=== PATIENT | male | born 1945 | race Caucasian/White ===

== ENCOUNTER 2023-07-28 12:03 | Outpatient (CLI) | payer OTHER, SELFPAY ==
--- OUTSIDE RECORDS SUMMARY | 2023-07-31 16:04 | XMS_ITS | Encounter Summary ---
Author Name [employer] Organization [employer] Address [address] [place] [address] Support Name Relationship Address Phone VICTORIA WALLER [place], [place] [phone] MOLLY TAYLOR Emergency Contact [place], [place] [address] [phone] Insurance Providers: All historical and current Section Date Range: From patient's date of to the date document was created. This section includes the names of all active insurance providers for the patient. Insurance Provider Type of Coverage Plan Name Start of Policy Coverage End of Policy Coverage Group Number Member ID Insurance Provider's Telephone Number Policy Barajas's Name Patient's Relationship to Policy Barajas MEDICARE (WNR) MEDICARE (M) PART A May 20, 2009 PART A [id number] KE ORDOÑEZ PATIENT Selected Encounter This section includes the information on record at [place] for the Encounter. Date/Time Encounter Type Encounter Description Reason Provider Source Feb 03, 2023 09:30 AM OFFICE O/P EST LOW 20-29 MIN PODIATRY ICD-10-CM E11.40 Type 2 diabetes mellitus with diabetic neuropathy, EVI Rogers [place] Encounter Template Text not used by [place] Assessments - Encounter Diagnoses This section includes the primary and secondary diagnoses documented for the Encounter. Date/Time Primary/Secondary Diagnosis Diagnosis Name Provider Source Feb 03, 2023 09:47 AM PRIMARY Type 2 diabetes mellitus with diabetic neuropathy, EVI Rogers [facility] Feb 03, 2023 09:47 AM SECONDARY Idiopathic gout, left ankle and foot EVI ZIMMER [facility] Feb 03, 2023 09:47 AM SECONDARY Idiopathic gout, right ankle and foot EVI ZIMMER [facility] Feb 03, 2023 09:47 AM SECONDARY Localized edema EVI ZIMMER [facility] Feb 03, 2023 09:47 AM SECONDARY Other hammer toe(s) (acquired), left foot EVI ZIMMER [facility] Feb 03, 2023 09:47 AM SECONDARY Other hammer toe(s) (acquired), right foot EVI ZIMMER [facility] Feb 03, 2023 09:47 AM SECONDARY Peripheral vascular disease, unspecified EVI ZIMMER [facility] Feb 03, 2023 09:47 AM SECONDARY Tinea unguium GORANEVI [facility] Plan of Treatment: Future Appointments (+ 6 months) and Future Tests (+/- 45 days) The Plan of Treatment section includes future care activities for the patient from all [place] [facility] This section includes future appointments and future orders which are active, pending or scheduled. Future Appointments This section includes appointments that were scheduled to occur 6 months from the date of the Encounter, up to a maximum of 20 appointments. The data comes from all [facility]. Appointment Date/Time Appointment Type Appointme nt Facility Name May 05, 2023 08:30 AM AMBULATORY - SURGERY [facility] Jul 30, 2023 08:22 AM [facility] Jul 30, 2023 10:30 AM AMBULATORY - MEDICINE [facility] Active, Pending, and Scheduled Orders This section includes a listing of several types of active, pending, and scheduled orders, including clinic medications orders, diagnostic test orders, procedure orders and consult orders; where the start date of the order is 45 days before the date of the Encounter or 45 days after the date of theEncounter. The data comes from all [facility]. Test Date/Time Test Type Test Details Facility Name Jan 15, 2023 12:00 AM Laboratory - Chemistry Order CBC BLOOD SP [facility] Jan 15, 2023 12:00 AM Laboratory - Chemistry Order COMPREHENSIVE METABOLIC PANEL+MG PLASMA SP ONCE [facility] Jan 15, 2023 12:00 AM Laboratory - Chemistry Order LIPID PANEL,NON-FASTING PLASMA SP [facility] Jan 15, 2023 12:00 AM Laboratory - Chemistry Order URIC ACID PLASMA SP [facility] Jan 15, 2023 12:00 AM Laboratory - Chemistry Order BNP PLASMA SP ONCE [facility] Social History: Smoking Status (Most current) and Tobacco Use (All prior to encounter date) This section includes the most current, and the historical, smoking and tobacco- related health factors from the [place] facility where the Encounter took place. Current Smoking Status This section includes the most current smoking, or tobacco-related health factor, from the [place] facility where the Encounter took place. Date/Time Current Smoking Status Comment Facil ity Jan 15, 2022 11:00 AM VA-TOBACCO FORMER USER [facility] Tobacco Use History This section includes a history of the smoking, or tobacco-related health factors, that were collected on or before the date of the Encounter. The data comes from the [place] facility where the Encounter took place. Date/Time Smoking Status/Tobacco Use Comment F acility Jan 15, 2022 11:00 AM VA-TOBACCO QUIT 15 YRS OR MORE [facility] December 14, 2020 01:30 PM VA-TOBACCO FORMER USER [facility] December 14, 2020 01:30 PM VA-TOBACCO QUIT 5 TO < 15 YRS [facility] Aug 19, 2019 11:35 AM VA-TOBACCO FORMER USER [facility] Aug 19, 2019 11:35 AM VA-TOBACCO QUIT 15 YRS OR MORE [facility] Aug 27, 2018 11:54 AM VA-TOBACCO DOESNT USE WI 30 MIN WAKEUP [facility] Aug 27, 2018 11:54 AM VA-TOBACCO USE 5 TO 15 YEARS [facility] Aug 27, 2018 11:54 AM VA-TOBACCO USE ADVICE [facility] Aug 27, 2018 11:54 AM VA-TOBACCO USE [facility] ADMINISTRATOR NO [facility] Aug 27, 2018 11:54 AM VA-TOBACCO USE MED NO [facility] Aug 27, 2018 11:54 AM VA-TOBACCO USER SOME DAYS [facility] Dec 24, 2016 12:51 PM FORMER TOBACCO USER 7Y OR GREATE R [facility] Sep 12, 2015 09:12 AM FORMER TOBACCO USE >1Y <7Y [facility] Sep 05, 2014 10:04 AM LIFETIME NON-TOBACCO USER [facility] Aug 25, 2014 09:45 AM FORMER TOBACCO USE >1Y <7Y [facility] Aug 03, 2014 06:11 PM FORMER TOBACCO USER 7Y OR GREATE R [facility] Aug 03, 2014 02:50 PM LIFETIME NON-TOBACCO USER [facility] Aug 01, 2014 11:24 AM FORMER TOBACCO USE >1Y <7Y [facility] Mar 07, 2013 08:45 AM FORMER TOBACCO USE >1Y <7Y [facility] Oct 17, 2009 07:56 AM CURRENT TOBACCO USER [facility] Sep 01, 2006 09:04 AM CURRENT TOBACCO USER [facility] Sep 01, 2006 09:04 AM FORMER TOBACCO USER 7Y OR GREATE R [facility] Advance Directives: All historical and current Section Date Range: From patient's date of to the date document was created. This section includes ALL of a patient's completed or amended [place] Advance and Rescinded Directives. The entries below indicate that a directive exists for the patient, but an actual copy is not included with this document. The data comes from all [facility]. Date Advance Directives Provider Source Sep 06, 2014 CLINICAL WARNING DEMETRIUSWinstonTOYINAntonia MCKENZIE [facility] Aug 05, 2014 CLINICAL WARNING ROEL MERCER [facility] Aug 01, 2014 CLINICAL WARNING ANDREPOWERMAKAYLAALETA Montero [facility] Jul 28, 2007 ADVANCE DIRECTIVE CATY ADORNO PRIYANKA IS [facility] Encounter Notes: All associated encounter notes This section contains the clinical notes associated to the Encounter. Date/Time Encounter Note(s) Provider Source Feb 03, 2023 09:28 AM PODIATRY ATTENDING NOTE: LOCAL TITLE: PODIATRY CLINIC NOTE STANDARD TITLE: PODIATRY ATTENDING NOTE DATE OF NOTE: FEB 03, 2023@09:28 ENTRY DATE: FEB 03, 2023@09:28:55 AUTHOR: EVI ZIMMER EXP COSIGNER: URGENCY: STATUS: COMPLETED Subjective: 77 year old male presents to clinic for high risk foot care. No new issues or concerns today. Feeling well and denies any n/v/f/c/sob/cp. Last documented Hgb A1c 5.5% on 09/25/22. Problems: Mood disorder (SCT [id number]) Hypertension (SCT [id number]) Bipolar, Manic Full Rem (ICD-9-CM 296.46Idiopathic fecal incontinence (SCT 982797223) Chronic kidney disease stage 3 (SCT 4331Diabetes Mellitus Type 2 (SCT 46754585) Allergies: FACILITY ALLERGY/ADR -------- [facility] No Known Allergies [facility] NO KNOWN ALLERGIES Medications: Active Outpatient Medications (including Supplies): Active Outpatient Medications Status 1) ALLOPURINOL 100MG TAB TAKE 1/2 TABLET BY MOUTH EVERY ACTIVE DAY FOR GOUT PREVENTION [DISPENSE 100MG] 2) AMLODIPINE BESYLATE 10MG TAB TAKE ONE-HALF TABLET BY ACTIVE MOUTH AT BEDTIME FOR BLOOD PRESSURE 3) ATORVASTATIN CALCIUM 20MG TAB TAKE ONE-HALF TABLET BY ACTIVE MOUTH AT BEDTIME FOR CHOLESTEROL 4) BRIEF,PROTECTIVE SUPER ABS MED ATTENDS USE BRIEF ACTIVE DIRECTED 5) COLCHICINE 0.6MG TAB TAKE ONE TABLET BY MOUTH EVERY ACTIVE DAY TAKE FOR 9 DAYS WITH THE ALLOPURINOL 6) CYANOCOBALAMIN 1000MCG TAB TAKE ONE TABLET BY MOUTH ACTIVE EVERY DAY FOR VITAMIN B12 DEFICIENCY 7) FUROSEMIDE 20MG TAB TAKE ONE TABLET BY MOUTH EVERY ACTIVE DAY 8) LISINOPRIL 40MG TAB TAKE ONE TABLET BY MOUTH EVERY ACTIVE MORNING FOR HIGH BLOOD PRESSURE 9) MAGNESIUM OXIDE 420MG TAB TAKE ONE TABLET BY MOUTH ACTIVE EVERY DAY FOR MAGNESIUM DEFICIENCY Active Non-VA Medications Status 1) Non-VA DOXYCYCLINE CAP,ORAL 100MG BID X 10 DAYS (TO [facility] 12-18-2020) MOUTH TWICE A DAY 10 Total Medications 10 Point ROS negative unless noted in the HPI. Objective: Patient is AOx3. NAD. Pleasant and cooperative. Vascular: Pedal pulses palpable 1/4 at the DP and PT locations bilateral. Doppler signals are noted. Capillary refill time is less than 5 seconds. Trace edema to the lower extremity. Neurologic: Light touch and gross sensation intact. Decreased protective senseation as tested with SWMF b/l. Dermatologic: Skin is of normal texture and turgor. Temperature is warm to cool from proximal to distal. Toenails are intact. Nails 1 through 10 are elongated, dystrophic, subungual debris noted. The wound noted to the medial base of the fourth digit remains healed. Musculoskeletal: Arch height and contour normal. Hammertoe contractures are appreciated. Assessment: Gout DM II with peripheral neuropathy PVD Onychomycosis Hammertoe contractures Edema Plan: -Patient examined and evaluated. Discussed findings with patient. -Nails 1-10 were sharply debrided in length and thickness. -No evidence of wounds or gout attacks currently. -New consult placed for extra depth shoes and accommodative inserts. -Patient will follow up in approximately 3 months for high risk foot care. /angelita/ EVI ZIMMER DPM BAG SHAKER Signed: 02/03/2023 09:48 EVI ZIMMER [facility]
--- OUTSIDE RECORDS SUMMARY | 2023-07-31 16:04 | XMS_ITS | Encounter Summary ---
Author Name [facility] Organization [facility] Address [address] [place] [address] Support Name Relationship Address Phone VICTORIA WALLER Next of [place], [place] MOLLY TAYLOR Emergency Contact [place], [place] Unavail able [place], [place] [id number] [phone] Insurance Providers: All historical and current Section [...] PART A May 20, 2009 PART A [phone] KE ORDOÑEZ PATIENT Selected Encounter This section includes the information on record at [place] for the Encounter. Date/Time Encounter Type Encounter Description Reason Pro vider Source Feb 03, 2023 04:19 PM Outpatient Encounter PRIMARY CARE/MEDICINE I[facility] Encounter Template Text not used by [place] Plan of Treatment: Future Appointments (+ 6 months) and Future Tests (+/- 45 days) The Plan of Treatment section includes future care activities for the patient from all [place] treatmentfacilities. This section includes future appointments and future orders which are active, pending or scheduled. Future Appointments This section includes appointments that were scheduled to occur 6 months from the date of the Encounter, up to a maximum of 20 appointments. The data comes from all [place] treatment facilities. Appointment Date/Time Appointment Type Appointme nt Facility Name May 05, 2023 08:30 AM AMBULATORY - SURGERY ALFA APOLIS [facility] Jul 30, 2023 08:22 AM AMBULATORY - NONE MAGALY TORRES [facility] Jul 30, 2023 10:30 AM AMBULATORY - MEDICINE [facility] Active, Pending, and Scheduled Orders This section includes a listing of several types of active, pending, and scheduled orders, including clinic medications orders, diagnostic test orders, procedure orders and consult orders; where the start date of the order is 45 days before the date of the Encounter or 45 days after the date of theEncounter. The data comes from all [place] treatment facilities. Test Date/Time Test Type Test Details Facility Name Jan 15, 2023 12:00 AM Laboratory - Chemistry Order COMPREHENSIVE METABOLIC PANEL+MG PLASMA SP ONCE [facility] Jan 15, 2023 12:00 AM Laboratory - Chemistry Order LIPID PANEL,NON-FASTING PLASMA SP [facility] Jan 15, 2023 12:00 AM Laboratory - Chemistry Order CBC BLOOD SP [facility] Jan 15, 2023 12:00 AM Laboratory - Chemistry Order URIC ACID PLASMA [facility] Jan 15, 2023 12:00 AM Laboratory - Chemistry Order BNP PLASMA SP ONCE [facility] Social History: Smoking Status (Most current) and Tobacco Use (All prior to encounter date) This section includes the most current, and the historical, smoking and tobacco- related health factors from the [place] facility where the Encounter took place. Current Smoking Status This section includes the most current smoking, or tobacco-related health factor, from the [place] facility where the Encounter took place. Date/Time Current Smoking Status Comment Katarina verma Jan 15, 2022 11:00 AM VA-TOBACCO FORMER USER [facility] Tobacco Use History This section includes a history of the smoking, or tobacco-related health factors, that were collected on or before the date of the Encounter. The data comes from the [place] facility where the Encounter took place. Date/Time Smoking Status/Tobacco Use Comment F acility Jan 15, 2022 11:00 AM VA-TOBACCO QUIT 15 YRS OR MORE [facility] December 14, 2020 01:30 PM VA-TOBACCO FORMER USER [facility] December 14, 2020 01:30 PM VA-TOBACCO QUIT 5 TO < 15 YRS [facility] Aug 19, 2019 11:35 AM VA-TOBACCO FORMER USER [facility] Aug 19, 2019 11:35 AM VA-TOBACCO QUIT 15 YRS OR MORE [facility] Aug 27, 2018 11:54 AM VA-TOBACCO DOESNT USE WI 30 MIN WAKEUP [facility] Aug 27, 2018 11:54 AM VA-TOBACCO USE 5 TO 15 YEARS [facility] Aug 27, 2018 11:54 AM VA-TOBACCO USE ADVICE [facility] Aug 27, 2018 11:54 AM VA-TOBACCO USE 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 NO [facility] Aug 27, 2018 11:54 AM VA-TOBACCO USE MED NO [facility] Aug 27, 2018 11:54 AM VA-TOBACCO USER SOME DAYS [facility] Dec 24, 2016 12:51 PM FORMER TOBACCO USER 7Y OR GREATE R [facility] Sep 12, 2015 09:12 AM FORMER TOBACCO USE >1Y <7Y [facility] Sep 05, 2014 10:04 AM LIFETIME NON-TOBACCO USER [facility] Aug 25, 2014 09:45 AM FORMER TOBACCO USE >1Y <7Y [facility] Aug 03, 2014 06:11 PM FORMER TOBACCO USER 7Y OR GREATE R [facility] Aug 03, 2014 02:50 PM LIFETIME NON-TOBACCO USER [facility] Aug 01, 2014 11:24 AM FORMER TOBACCO USE >1Y <7Y [facility] Mar 07, 2013 08:45 AM FORMER TOBACCO USE >1Y <7Y [facility] Oct 17, 2009 07:56 AM CURRENT TOBACCO USER [facility] Sep 01, 2006 09:04 AM CURRENT TOBACCO USER [facility] Sep 01, 2006 09:04 AM FORMER TOBACCO USER 7Y OR GREATE R [facility] Advance Directives: All historical and current Section Date Range: From patient's date of to the date document was created. This section includes ALL of a patient's completed or amended [place] Advance and Rescinded Directives. The entries below indicate that a directive exists for the patient, but an actual copy is not included with this document. The data comes from all [place] facilities. Date Advance Directives Provider Source Sep 06, 2014 CLINICAL WARNING TOYIN COTA LIS [facility] Aug 05, 2014 CLINICAL WARNING ROEL MERCER IS [facility] Aug 01, 2014 CLINICAL WARNING ALETA MAZARIEGOS IS [facility] Jul 28, 2007 ADVANCE DIRECTIVE CATY ADORNO IS [facility] Encounter Notes: All associated encounter notes This section contains the clinical notes associated to the Encounter. Date/Time Encounter Note(s) Provider Source Feb 03, 2023 04:19 PM REPORT OF CONTACT: LOCAL TITLE: APPOINTMENT SCHEDULING NOTE STANDARD TITLE: REPORT OF CONTACT DATE OF NOTE: FEB 03, 2023@16:19 ENTRY DATE: FEB 03, 2023@16:20 AUTHOR: ELISA BROOKS EXP COSIGNER: URGENCY: STATUS: COMPLETED APPOINTMENT SCHEDULING NOTE Has ADDENDA Attempted to schedule Recall/Patient Center Scheduling (PtCSch) Contact attempt made to [place] 1st attempt Telephone 2nd attempt Letter Disposition order request after Feb Unable to leave voice mail d/t full vm box If calls back, schedule appt for: [id number] [facility] [employer] 4E RTC 12/2022 W/NF#[id number] FED 01/15/22 PID /[email or web address]/ ELISA BROOKS ADVANCED [facility]SA Signed: 02/03/2023 16:20 02/17/2023 ADDENDUM STATUS: COMPLETED Order dispositioned due to failed contact attempts. /vince BROOKS ADVANCED MSA Signed: 02/17/2023 12:20 ELISA BROOKS [facility]
--- OUTSIDE RECORDS SUMMARY | 2023-07-31 16:04 | XMS_ITS | Continuity of Care Document ---
Author Name [facility] Organization [facility] Care Team Providers Care Profile Shaper Operator Name Role Phone [facility] Unavailable Unavailable Problems Combined list of problems from Department of Defense and [facility] Affairs facilities. It does not include entries that were removed or entered in error. Problem Status Onset Date Problem Type Date of Resolution Comments Source Bipolar, Manic Full Rem Active Condition [facility] Chronic kidney disease stage 3 Active Condition [facility] Diabetes Mellitus Type 2 ([facility] 94436009) Active Condition May 01, 2020 Entered By: DARA PELLETIER Comment: prev dx. a1c >6.5 prev. now controlled ?(no med) [facility] Diastolic heart failure Active Condition [facility] Hypertension (SNOMED CT 75728150) Active Condition [facility] Idiopathic fecal incontinence Active Condition [facility] Mood disorder (SNOMED CT 62778972) Active Condition [facility] Alcoh Depend, in Remis Inactive Condition 12/24/2016 [facility] Alcoh Dependence, Unsp Inactive Condition 12/24/2016 [facility] Cannabis Depen,in Remis Inactive Condition 12/24/2016 [facility] CHRON PERIODONTITIS,GE N Inactive Condition 12/24/2016 [facility] Cocaine Depend, unspec Inactive Condition 12/24/2016 [facility] [place] Lesion, Pulmonary * (ICD-9-CM 793.1) Inactive Condition 12/24/2016 [facility] COPD Inactive Condition 12/24/2016 [facility] Dyslipidemia (ICD-9-CM 272.4) Inactive Condition 12/24/2016 [facility] Elevated blood pressure reading without diagnosis of hypertension (ICD-9-CM 796. Inactive Condition 12/24/2016 [facility] GINGIV/PERIODONT DIS NOS Inactive Condition 12/24/2016 [facility] Hand Injury Inactive Condition 12/24/2016 [facility] Nicotine Dependence (ICD-9-CM 305.1) Inactive Condition 12/24/2016 [facility] OVERWEIGHT Inactive Condition 12/24/2016 [facility] Routine General Medical Examination at a Health Care Facility * Inactive Condition 12/24/2016 [facility] Diagnosis: ICD-10-CM S42.402A Unsp fracture of lower end of left humerus, init for clos fx [facility] Diagnosis: ICD-10-CM E11.40 Type 2 diabetes mellitus with diabetic neuropathy, unsp Active [facility] Diagnosis: ICD-10-CM H00.022 Hordeolum internum right lower eyelid Active Diagnosis [facility] Diagnosis: ICD-10-CM 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 Medication Details Route Status Patient Instructions Prescription Expires Prescription Number Last Dispense Date Ordering Provider Order Date Source ALLOPURINOL 100MG TAB TAKE ONE TABLET BY MOUTH EVERY DAY FOR GOUT PREVENTI ON ORALLY ACTIVE 10/15/2023 [id number] ANAEULOGIO EVELYN ALLRED 2022 [facility] ALLOPURINOL 100MG TAB TAKE ONE TABLET BY MOUTH EVERY DAY FOR GOUT PREVENTI ON ORALLY DISCONT INUED 12/12/2022 [id number] ANAEULOGIO EVELYN ALLRED 2021 [facility] ALLOPURINOL TAB TAKE 100MG [facility] WITH ANT ABARCA (F), [phone] (PHONE) ACTIVE ANAEVELYN KRISHNAN ALLRED 2020 [facility] AMLODIPINE BESYLATE 10MG TAB TAKE ONE-HALF TABLET BY MOUTH AT BEDTIME FOR BLOOD PRESSURE ORALLY DISCONT INUED 11/16/2022 [id number] PRABHU EVELYNANA ALLRED 2021 [facility] AMLODIPINE BESYLATE 10MG TAB TAKE ONE-HALF TABLET BY MOUTH AT BEDTIME FOR BLOOD PRESSURE ORALLY DISCONT INUED (EDIT) 10/15/2023 [id number] 3 PRABHU EVELYN ALLRED 2022 [facility] AMLODIPINE BESYLATE 5MG TAB TAKE ONE TABLET BY MOUTH AT BEDTIME FOR BLOOD PRESSURE ORALLY ACTIVE 10/16/2023 [id number] 3 [place] EVELYNANA ALLRED 2022 [facility] ATORVASTATI N CA 10MG TAB TAKE ONE TABLET BY MOUTH AT BEDTIME FOR CHOLESTE ROL ORALLY ACTIVE 10/16/2023 [id number] [place] EVELYNANA ALLRED [address] [facility] ATORVASTATI N CA 20MG TAB TAKE ONE-HALF TABLET BY MOUTH AT BEDTIME FOR CHOLESTE ROL ORALLY DISCONT INUED 12/19/2022 [id number] 3 [place] EVELYNANA ALLRED [address] [facility] ATORVASTATI N CA 20MG TAB TAKE ONE-HALF TABLET BY MOUTH AT BEDTIME FOR CHOLESTE ROL ORALLY DISCONT INUED (EDIT) 10/15/2023 [id number] 3 [facility]22 [facility] CYANOCOBALA MIN 1000MCG TAB TAKE ONE TABLET BY MOUTH EVERY DAY FOR VITAMIN B12 DEFICIEN CY ORALLY ACTIVE 10/15/2023 [id number] 3 [facility] [address] [facility] CYANOCOBALA MIN 1000MCG TAB TAKE ONE TABLET BY MOUTH EVERY DAY FOR VITAMIN B12 DEFICIEN CY ORALLY DISCONT INUED 12/12/2022 [id number] 3 [facility] 2021 [facility] EMPAGLIFLOZ IN 25MG TAB TAKE ONE-HALF TABLET BY MOUTH EVERY MORNING FOR DIABETES AND KIDNEY. DRINK WATER THROUGHO UT DAY TO STAY HYDRATED . ORALLY ACTIVE 02/04/2024 [id number] 3 [facility] [address] [facility] EMPAGLIFLOZ IN 25MG TAB TAKE ONE-HALF TABLET BY MOUTH EVERY MORNING FOR DIABETES AND KIDNEY. DRINK WATER THROUGHO UT DAY TO STAY HYDRATED . ORALLY DISCONT INUED 05/08/2023 [id number] SANTIAGO ALVAREZ 2021 [facility] FUROSEMIDE 20MG TAB TAKE ONE TABLET BY MOUTH EVERY DAY ORALLY ACTIVE 10/15/[id number] [facility] 2022 [facility] FUROSEMIDE 20MG TAB TAKE ONE TABLET BY MOUTH EVERY DAY ORALLY DISCONT INUED 11/16/2022 [id number] 3 [place], [facility] 2021 [facility] HYDROCODONE 5MG/ACETAMI NOPHEN 325MG TAB TAKE 1 TABLET BY MOUTH EVERY 4 HOURS NEEDED FOR PAIN ORALLY ACTIVE 08/29/2023 [id number] HEIDI VIVAS 2023 [facility] LISINOPRIL 40MG TAB TAKE ONE TABLET BY MOUTH EVERY MORNING FOR HIGH BLOOD PRESSURE ORALLY ACTIVE 10/15/2023 [id number] 3 [facility] ALLRED 2022 [facility] LISINOPRIL 40MG TAB TAKE ONE TABLET BY MOUTH EVERY MORNING FOR HIGH BLOOD PRESSURE ORALLY DISCONT INUED 12/19/20[id number] [address] [facility] 2021 [facility] MAGNESIUM OXIDE 420MG TAB TAKE ONE TABLET BY MOUTH EVERY DAY FOR MAGNESIU M DEFICIEN CY ORALLY ACTIVE 10/15/2023 [id number] [address] [facility] 2022 [facility] MAGNESIUM OXIDE 420MG TAB TAKE ONE TABLET BY MOUTH EVERY DAY FOR MAGNESIU M DEFICIEN CY ORALLY DISCONT INUED 11/16/[id number] [facility] 2021 [facility] NON VA MED NOT LISTED USE CALL IN MEDICATI ONS TO [facility] TEVIN [phone] (F), (PHONE) ACTIVE [facility] 2020 [facility] INTERMEDIATE MEDICATIONS MISCELLANEO US USE PRN ANT MEDS, ANTIACID , LOPERAMI DE, DIPHENHY DRAMINE PRN ALLERGIE S, APAP, MILK OF MG, SENNA, COUGH SYRUP, A&D, PERICARE , ZULEMA M DAJACEL MARILY S ACTIVE EVELYN PELLETIER 2020 [facility] VANICREAM APPLY THIN LAYER TOPICALL Y EVERY DAY FOR DRY SKIN, IDEALLY WITHIN 3 MINUTES AFTER BATH OR SHOWER. FOR DRY SKIN, IDEALLY WITHIN 3 MINUTES AFTER BATH OR SHOWER. KIMBERLY [place] 05/14/2023 [id number] EVELYN PELLETIER 2021 [facility] Immunizations Combined list of available immunizations from the Department of Defense and Veterans Affairs facilities. Immunization Series Date Given Administered By Site Reaction Lot Number CVX Code Drug Manager Business Systems Status Comments Source PNEUMOCOCCAL POLYSACCHARID E PPV23 2023 CORDELIA PICHARDO RIGHT DELTO ID [id number] 33 complet ed [facility] COVID-19 (MODERNA), MRNA, LNP-S, PF, 50 MCG/0.5 ML (AGES 12+ YEARS) 2022 312 complet ed [facility] COVID-19 (MODERNA), MRNA, LNP-S, BIVALENT, PF, 50 MCG/0.5 ML OR 25MCG/0.25 ML DOSE 2021 229 complet ed [facility] COVID-19 (MODERNA), MRNA, LNP-S, PF, 100 MCG/0.5ML DOSE OR 50 MCG/0.25ML DOSE 4 2021 207 complet ed [facility] PNEUMOCOCCAL CONJUGATE PCV 13 2020 133 complet ed [facility] ZOSTER RECOMBINANT 2 2020 187 complet ed [facility] COVID-19 (MODERNA), MRNA, LNP-S, PF, 100 MCG OR 50 MCG DOSE 3 2020 207 complet ed [facility] COVID-19 (MODERNA), MRNA, LNP-S, PF, 100 MCG/0.5 ML DOSE 2 2020 207 complet ed [facility] COVID-19 (MODERNA), MRNA, LNP-S, PF, 100 MCG/0.5 ML DOSE 1 2020 207 complet ed [facility] ZOSTER RECOMBINANT 1 2018 187 complet ed [facility] TDAP 2017 115 complet ed [employer] TF422 Exp. 9 [facility] TD (ADULT) 2014 138 complet ed [facility] ZOSTER LIVE 2009 121 complet ed x [facility] PNEUMOCOCCAL, UNSPECIFIED FORMULATION 2008 109 complet ed [employer] [id number], 10/05/09 [facility] TD(ADULT) UNSPECIFIED FORMULATION 2000 139 complet ed [facility] TETANUS TOXOID, UNSPECIFIED FORMULATION 1996 PIPPA COLIN 112 complet ed [facility] TD(ADULT) UNSPECIFIED FORMULATION 1996 139 complet ed [facility] Results Combined list of recent chemistry, hematology and other laboratory results from Department of Defense and Veterans Affairs, ranging from 15 months to all on record, depending upon the facility. Order Name Results Value Reference Range Date Interpretation Specimen Comments Source HEMOGLOBI N A1C HEMOGLOBIN A1C/HEMOGLO BIN.TOTAL IN BLOOD 5.5 4.0 - 6.0 09/25 Specimen Type: BLOOD Comment: Values obtained from A1C measurement s can vary. For typical A1C assays, a reported value of 7.0 could actually be between 6.7 and 7.3 if measured by a reference method. A reported value of 9.0 could actually be between 8.7 and 9.3. Ref: http://www. ngsp.org/[place] Pdata.asp Ordering Provider: JOSÉ LUIS ALVAREZ Report Released Date/Time: May 07, 2022 02:26 PM Reporting Lab: [facility] [address] Performing Lab: [facility] [address] [facility] BASIC METABOLIC PANEL+MG CREATININE [MASS/VOLUM E] IN SERUM OR PLASMA 2.3 0.7 - 1.2 09/25 H Specimen Type: PLASMA No comment entered. Ordering Provider: JOSÉ LUIS ALVAREZ Report Released Date/Time: May 07, 2022 02:26 PM Reporting Lab: [facility] [address] Performing Lab: [facility] [address] [place] [facility] BASIC METABOLIC PANEL+MG UREA NITROGEN [MASS/VOLUM E] IN SERUM OR PLASMA 37 8 - 26 09/25 H Specimen Type: PLASMA No comment entered. Ordering Provider: JOSÉ LUIS ALVAREZ Report Released Date/Time: May 07, 2022 02:26 PM Reporting Lab: [facility] [address] Performing Lab: [facility] [address] [facility] BASIC METABOLIC PANEL+MG GLUCOSE [MASS/VOLUM E] IN SERUM OR PLASMA 115 70 - 100 09/25 H Specimen Type: PLASMA No comment entered. Ordering Provider: JOSÉ LUIS ALVAREZ Report Released Date/Time: May 07, 2022 02:26 PM Reporting Lab: [facility] [address] Performing Lab: [facility] [address] [place] BASIC METABOLIC PANEL+MG SODIUM [MOLES/VOLU ME] IN SERUM OR PLASMA 143 136 - 145 09/25 Specimen Type: PLASMA No comment entered. Ordering Provider: JOSÉ LUIS ALVAREZ Report Released Date/Time: May 07, 2022 02:26 PM Reporting Lab: [facility] [address] Performing Lab: [facility] [address] [facility] BASIC METABOLIC PANEL+MG POTASSIUM [MOLES/VOLU ME] IN SERUM OR PLASMA 3.8 3.5 - 5.1 09/25 Specimen Type: PLASMA No comment entered. Ordering Provider: JOSÉ LUIS ALVAREZ Report Released Date/Time: May 07, 2022 02:26 PM Reporting Lab: [facility] [address] Performing Lab: [facility] [address] [facility] BASIC METABOLIC PANEL+MG CHLORIDE [MOLES/VOLU ME] IN SERUM OR PLASMA 108 98 - 107 09/25 H Specimen Type: PLASMA No comment entered. Ordering Provider: JOSÉ LUIS ALVAREZ Report Released Date/Time: May 07, 2022 02:26 PM Reporting Lab: [facility] [address] Performing Lab: [facility] [address] [place] [facility] BASIC METABOLIC PANEL+MG CARBON DIOXIDE, TOTAL [MOLES/VOLU ME] IN SERUM OR PLASMA 22 22 - 29 09/25 Specimen Type: PLASMA No comment entered. Ordering Provider: JOSÉ LUIS ALVAREZ Report Released Date/Time: May 07, 2022 02:26 PM Reporting Lab: [facility] [address] Performing Lab: [facility] [address] [facility] BASIC METABOLIC PANEL+MG CALCIUM [MASS/VOLUM E] IN SERUM OR PLASMA 9.2 8.4 - 10.2 09/25 Specimen Type: PLASMA No comment entered. Ordering Provider: JOSÉ LUIS ALVAREZ Report Released Date/Time: May 07, 2022 02:26 PM Reporting Lab: [facility] [address] Performing Lab: [facility] [address] [place] BASIC METABOLIC PANEL+MG MAGNESIUM [MASS/VOLUM E] IN SERUM OR PLASMA 2.4 1.6 - 2.6 09/25 Specimen Type: PLASMA No comment entered. Ordering Provider: JOSÉ LUIS ALAVREZ Report Released Date/Time: May 07, 2022 02:26 PM Reporting Lab: [facility] [address] Performing Lab: [facility] [address] [facility] BASIC METABOLIC PANEL+MG ANION GAP IN SERUM OR PLASMA 13 5 - 15 09/25 Specimen Type: PLASMA No comment entered. Ordering Provider: JOSÉ LUIS ALVAREZ Report Released Date/Time: May 07, 2022 02:26 PM Reporting Lab: [facility] [address] Performing Lab: [facility] [address] [place] [facility] BASIC METABOLIC PANEL+MG GLOMERULAR FILTRATION RATE/1.73 SQ M.PREDICTED [VOLUME RATE/AREA] IN SERUM, PLASMA OR BLOOD BY CREATININE- BASED FORMULA (CKD-EPI) 28 60 09/25 L Specimen Type: PLASMA No comment entered. Ordering Provider: JOSÉ LUIS ALVAREZ Report Released Date/Time: May 07, 2022 02:26 PM Reporting Lab: [facility] [address] Performing Lab: [facility] [address] [place] [facility] HEMOGLOBI N A1C HEMOGLOBIN A1C/HEMOGLO BIN.TOTAL IN BLOOD 6.2 4.0 - 6.0 01/15 H Specimen Type: BLOOD No comment entered. Ordering Provider: GUERITA PELLETIER Report Released Date/Time: Jul 18, 2021 01:30 PM Reporting Lab: [facility] [address] Performing Lab: [facility] [address] [place] [facility] AST/SGOT ASPARTATE AMINOTRANSF ERASE [ENZYMATIC ACTIVITY/VO LUME] IN SERUM OR PLASMA 13 <34 - 34 01/15 Specimen Type: PLASMA No comment entered. Ordering Provider: GUERITA PELLETIER Report Released Date/Time: Jul 18, 2021 01:30 PM Reporting Lab: [facility] [address] Performing Lab: [facility] [address] [place] [facility] ALT/SGPT ALANINE AMINOTRANSF ERASE [ENZYMATIC ACTIVITY/VO LUME] IN SERUM OR PLASMA 12 <55 - 55 01/15 Specimen Type: PLASMA No comment entered. Ordering Provider: GUERITA PELLETIER Report Released Date/Time: Jul 18, 2021 01:30 PM Reporting Lab: [facility] [address] Performing Lab: [facility] [address] [place] [facility] URIC ACID URATE [MASS/VOLUM E] IN SERUM OR PLASMA 7.1 3.5 - 7.2 01/15 Specimen Type: PLASMA No comment entered. Ordering Provider: GUERITA PELLETIER Report Released Date/Time: Jul 18, 2021 01:30 PM Reporting Lab: [facility] [address] Performing Lab: [facility] [address] [place] [facility] CBC LEUKOCYTES [#/VOLUME] IN BLOOD BY AUTOMATED COUNT 9.25 4.0 - 11.0 01/15 Specimen Type: BLOOD No comment entered. Ordering Provider: GUERITA PELLETIER Report Released Date/Time: Jul 18, 2021 01:30 PM Reporting Lab: [facility] [address] Performing Lab: [facility] [address] [place] CBC ERYTHROCYTE S [#/VOLUME] IN BLOOD BY AUTOMATED COUNT 5.07 4.6 - 6.2 01/15 Specimen Type: BLOOD No comment entered. Ordering Provider: GUERITA PELLETIER Report Released Date/Time: Jul 18, 2021 01:30 PM Reporting Lab: [facility] [address] Performing Lab: [facility] [address] [place] CBC HEMOGLOBIN [MASS/VOLUM E] IN BLOOD 15.9 13.5 - 17.9 01/15 Specimen Type: BLOOD No comment entered. Ordering Provider: GUERITA PELLETIER Report Released Date/Time: Jul 18, 2021 01:30 PM Reporting Lab: [facility] [address] Performing Lab: [facility] [address] [place] [facility] CBC HEMATOCRIT [VOLUME FRACTION] OF BLOOD BY AUTOMATED COUNT 45.6 41 - 54 01/15 Specimen Type: BLOOD No comment entered. Ordering Provider: GUERITA PELLETIER Report Released Date/Time: Jul 18, 2021 01:30 PM Reporting Lab: [facility] [address] Performing Lab: [facility] [address] [place] [facility] CBC MCV [ENTITIC VOLUME] BY AUTOMATED COUNT 89.9 80 - 100 01/15 Specimen Type: BLOOD No comment entered. Ordering Provider: GUERITA PELLETIER Report Released Date/Time: Jul 18, 2021 01:30 PM Reporting Lab: [facility] [address] Performing Lab: [facility] [address] [place] [facility] CBC MCH [ENTITIC MASS] BY AUTOMATED COUNT 31.4 27 - 33 01/15 Specimen Type: BLOOD No comment entered. Ordering Provider: GUERITA PELLETIER Report Released Date/Time: Jul 18, 2021 01:30 PM Reporting Lab: [facility] [address] Performing Lab: [address] [facility] CBC MCHC [MASS/VOLUM E] BY AUTOMATED COUNT 34.9 32.0 - 37.5 01/15 Specimen Type: BLOOD No comment entered. Ordering Provider: GUERITA PELLETIER Report Released Date/Time: Jul 18, 2021 01:30 PM Reporting Lab: [facility] [address] Performing Lab: [facility] [address] [facility] CBC PLATELETS [#/VOLUME] IN BLOOD BY AUTOMATED COUNT 280 150 - 400 01/15 Specimen Type: BLOOD No comment entered. Ordering Provider: GUERITA PELLETIER Report Released Date/Time: Jul 18, 2021 01:30 PM Reporting Lab: [facility] [address] Performing Lab: [facility] [address] [facility] CBC PLATELET MEAN VOLUME [ENTITIC VOLUME] IN BLOOD BY AUTOMATED COUNT 10.1 7.4 - 10.4 01/15 Specimen Type: BLOOD No comment entered. Ordering Provider: GUERITA PELLETIER Report Released Date/Time: Jul 18, 2021 01:30 PM Reporting Lab: [facility] [address] Performing Lab: [facility] [address] [facility] CBC ERYTHROCYTE DISTRIBUTIO N WIDTH [RATIO] BY AUTOMATED COUNT 13.4 11.5 - 14.5 01/15 Specimen Type: BLOOD No comment entered. Ordering Provider: GUERITA PELLETIER Report Released Date/Time: Jul 18, 2021 01:30 PM Reporting Lab: [facility] [address] Performing Lab: [facility] [address] [facility] BNP NATRIURETIC PEPTIDE B [MASS/VOLUM E] IN SERUM OR PLASMA 20 <99 - 99 01/15 Specimen Type: PLASMA No comment entered. Ordering Provider: GUERITA PELLETIER Report Released Date/Time: Jul 18, 2021 01:30 PM Reporting Lab: [facility] [address] Performing Lab: [facility] [address] [place] [facility] BASIC METABOLIC PANEL+MG CREATININE [MASS/VOLUM E] IN SERUM OR PLASMA 2.3 0.7 - 1.2 01/15 H Specimen Type: PLASMA No comment entered. Ordering Provider: GUERITA PELLETIER Report Released Date/Time: Jul 18, 2021 01:30 PM Reporting Lab: [facility] [address] Performing Lab: [facility] [address] [facility] BASIC METABOLIC PANEL+MG UREA NITROGEN [MASS/VOLUM E] IN SERUM OR PLASMA 42 8 - 26 01/15 H Specimen Type: PLASMA No comment entered. Ordering Provider: GUERITA PELLETIER Report Released Date/Time: Jul 18, 2021 01:30 PM Reporting Lab: [facility] [address] Performing Lab: [facility] [address] [facility] BASIC METABOLIC PANEL+MG GLUCOSE [MASS/VOLUM E] IN SERUM OR PLASMA 103 74 - 100 01/15 H Specimen Type: PLASMA No comment entered. Ordering Provider: GUERITA PELLETIER Report Released Date/Time: Jul 18, 2021 01:30 PM Reporting Lab: [facility] [address] Performing Lab: [facility] [address] [facility] BASIC METABOLIC PANEL+MG SODIUM [MOLES/VOLU ME] IN SERUM OR PLASMA 137 136 - 145 01/15 Specimen Type: PLASMA No comment entered. Ordering Provider: GUERITA PELLETIER Report Released Date/Time: Jul 18, 2021 01:30 PM Reporting Lab: [facility] [address] Performing Lab: [facility] [address] [facility] BASIC METABOLIC PANEL+MG POTASSIUM [MOLES/VOLU ME] IN SERUM OR PLASMA 4.2 3.5 - 5.1 01/15 Specimen Type: PLASMA No comment entered. Ordering Provider: GUERITA PELLETIER Report Released Date/Time: Jul 18, 2021 01:30 PM Reporting Lab: [facility] [address] Performing Lab: [facility] [address] [facility] BASIC METABOLIC PANEL+MG CHLORIDE [MOLES/VOLU ME] IN SERUM OR PLASMA 106 98 - 107 01/15 Specimen Type: PLASMA No comment entered. Ordering Provider: GUERITA PELLETIER Report Released Date/Time: Jul 18, 2021 01:30 PM Reporting Lab: [facility] [address] Performing Lab: [facility] [address] [facility] BASIC METABOLIC PANEL+MG CARBON DIOXIDE, TOTAL [MOLES/VOLU ME] IN SERUM OR PLASMA - 01/15 Specimen Type: PLASMA No comment entered. Ordering Provider: GUERITA PELLETIER Report Released Date/Time: Jul 18, 2021 01:30 PM Reporting Lab: [facility] [address] Performing Lab: [facility] [address] [facility] BASIC METABOLIC PANEL+MG CALCIUM [MASS/VOLUM E] IN SERUM OR PLASMA 8.9 8.4 - 10.2 01/15 Specimen Type: PLASMA No comment entered. Ordering Provider: GUERITA PELLETIER Report Released Date/Time: Jul 18, 2021 01:30 PM Reporting Lab: [facility] [address] Performing Lab: [facility] [address] [place] [facility] BASIC METABOLIC PANEL+MG MAGNESIUM [MASS/VOLUM E] IN SERUM OR PLASMA 2.2 1.6 - 2.6 01/15 Specimen Type: PLASMA No comment entered. Ordering Provider: GUERITA PELLETIER Report Released Date/Time: Jul 18, 2021 01:30 PM Reporting Lab: [facility] [id number] Performing Lab: [facility] [address] [place] [facility] BASIC METABOLIC PANEL+MG ANION GAP IN SERUM OR PLASMA 9 5 - 15 01/15 Specimen Type: PLASMA No comment entered. Ordering Provider: GUERITA PELLETIER Report Released Date/Time: Jul 18, 2021 01:30 PM Reporting Lab: [facility] [phone] Performing Lab: [facility] [phone] [facility] BASIC METABOLIC PANEL+MG CREAT EGFR(CKD-EP I) 29 60 01/15 L Specimen Type: PLASMA No comment entered. Ordering Provider: GUERITA PELLETIER Report Released Date/Time: Jul 18, 2021 01:30 PM Reporting Lab: [facility] [id number] Performing Lab: [facility] [address] [facility] Vital Signs Combined list of inpatient and outpatient Vital Signs from [employer] of Defense and [employer] Affairs, ranging from 12 months to all on record, depending upon the facility. Vital Sign Value Date Comments Source SYSTOLIC BLOOD PRESSURE 127 07/30/2023 10:27:45 [facility] CENTER DIASTOLIC BLOOD PRESSURE 85 07/30/2023 10:27:45 [facility] PULSE OXIMETRY 94% 07/30/2023 10:27:45 [facility] 162.8 07/30/2023 10:27:45 [facility] BMI 26kg/m2 07/30/2023 10:27:45 [facility] PAIN 5 07/30/2023 10:27:45 [facility] HEIGHT 67 07/30/2023 10:27:45 [facility] TEMPERATURE 98.6 07/30/2023 10:27:45 [facility] PULSE 115 07/30/2023 10:27:45 [facility] RESPIRATION 18 07/30/2023 10:27:45 [facility] Encounters Combined list of: 1) Encounters from Department of Veterans Affairs facilities going back up to thelast 18 months. 2) Encounters from the Department of Defense facilities going back up to 280 months. Location Location Details Encounter Type Encounter Number Reason For Visit Attending Provider ADM Date DC Date Status Disposition Source [facility] OFFICE O/P EST MOD 30-39 MIN [id number] Diagnos is: ICD-10- CM E11.40 Type 2 diabete s mellitu s with diabeti c neuropa thy, unsp
STACIE ZIMMER 02/25 [place] [facility] [place] [facility] Out[place] Encounter [id number] 04/29 [place] [facility] [facility] [place] [facility] [place] Encounter [id number] 04/30 [place] [facility] [facility] [place] [facility] HC PRO PHONE CALL 21-30 MIN [id number] Diagnos is: ICD-10- CM E08.22 Diabete s due to undrl cond w diabeti c chronic kidney disease
DOUG ALVAREZ 05/07 [place] [facility] [place] [facility] OFF[place] O/P EST MOD 30-39 MIN [id number] Diagnos is: ICD-10- CM E11.40 Type 2 diabete s mellitu s with diabeti c neuropa thy, unsp
STACIE ZIMMER 06/03 [place] [facility] [place] [facility] Out[place] Encounter [id number] 06/13 [place] [facility] [facility] [place] [facility] [place] Encounter [id number] 06/18 [place] [facility] [facility] [place] [facility] Out[place] Encounter [id number] 06/18 [place] [facility] [place] [facility] Out[place] Encounter [id number] Diagnos is: ICD-10- CM U07.1 COVID-1 9
Cyndy PELLETIER 06/18 [place] [facility] [place] [facility] OFF[place] O/P EST LOW 20-29 MIN [id number] Diagnos is: ICD-10- CM E11.40 Type 2 diabete s mellitu s with diabeti c neuropa thy, unsp
STACIE ZIMMER 09/25 [place] [facility] [place] [facility] QNHP OL DIG ASSMT&MGMT 11-20 [id number] Diagnos is: ICD-10- CM E08.22 Diabete s due to undrl cond w diabeti c chronic kidney disease
DOUG ALVAREZ 09/25 [place] [facility] [place] [facility] Out[place] Encounter [id number] ZHAO FRENCH Albert 10/14 [place] [facility] [place] [facility] OFF[place] O/P EST SF 10-19 MIN [id number] Diagnos is: ICD-10- CM H00.022 Hordeol um internu m right lower eyelid< br/> MAREN BAKER SA 10/14 [place] [facility] [place] [facility] Out[place] Encounter [id number] 10/21 [place] [facility] [place] [facility] OFF[place] O/P EST LOW 20-29 MIN [id number] Diagnos is: ICD-10- CM E11.40 Type 2 diabete s mellitu s with diabeti c neuropa thy, unsp
[facility]IMMER 02[facility]03 [facility] [place] [facility] Out[place] Encounter [id number] STACIE ZIMMER 02/03 [place] [facility] [place] [facility] Out[place] Encounter [id number] 02/03 [place] [facility] [place] [facility] Out[place] Encounter [id number] 05/04 [place] [facility] [place] [facility] Out[place] Encounter [id number] 07/28 [place] [facility] [place] [facility] Out[place] Encounter [id number] Harley SOUTH 07/30 [place] [facility] [place] [facility] OFF[place] O/P EST LOW 20 MIN [id number] Diagnos is: ICD-10- CM S42.402 A Unsp fractur e of lower end of left humerus , init for clos fx
MITCHELL VIVAS E 07/30 [facility] Social History Combined list of available smoking, tobacco, and other social history from Department of Defense and Veterans Affairs facilities. Social History Type Response Date Comment Sourc e Tobacco smoking status NHIS VA-TOBACCO FORMER USER 07/30/2023 [facility] History of tobacco use ME-TOBACCO QUIT 5 TO < 15 YRS 07/30/2023 [facility] History of tobacco use ME-TOBACCO QUIT 1 5 YRS OR MORE 01/15/2022 [facility] History of tobacco use ME-TOBACCO QUIT 5 TO < 15 YRS 12/14/2020 [facility] History of tobacco use ME-TOBACCO QUIT 1 5 YRS OR MORE 08/19/2019 [facility] History of tobacco use ME-TOBACCO USER S OME DAYS 08/27/2018 [facility] History of tobacco use FORMER TOBACCO US ER 7Y OR GREATER 12/24/2016 [facility] History of tobacco use FORMER TOBACCO US E >1Y <7Y 09/12/2015 [facility] History of tobacco use 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 09/05/2014 [facility] History of tobacco use FORMER TOBACCO US E >1Y <7Y 08/25/2014 [facility] History of tobacco use FORMER TOBACCO US ER 7Y OR GREATER 08/03/2014 [facility] History of tobacco use 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 Additional future care activities may be listed in the Assessment and Plan section. Date/Time Care Activity Care Activity Detail Facili ty 07/30/2023 Consult Order ORTHOPEDICS OUTP T-FRACTURE Cons Programming Engineer's Choice [facility] Advance Directives List of completed, amended, or rescinded Advance Directives on record at Department of Veterans Affairs facilities. An actual copy of the Directive is not included. Date Advance Directive Provider Source 09/06/2014 CLINICAL WARNING TOYIN COTA L[facility] 08/05/2014 CLINICAL WARNING ROEL MERCER [facility] 08/01/2014 CLINICAL WARNING ALETA MAZARIEGOS IS [facility] 07/28/2007 ADVANCE DIRECTIVE CATY ADORNO [facility]
--- OUTSIDE RECORDS SUMMARY | 2023-07-31 16:04 | XMS_ITS | Encounter Summary ---
Author Name [facility] Organization [facility] Address [address] [place] [address] Support Name Relationship Address Phone VICTORIA WALLER Next of [place], [place] MOLLY TAYLOR Emergency Contact [place], [place] Unavail able AUGUSTIN [place] [address] [phone] Insurance Providers: All historical and current Section [...] PART A May 20, 2009 PART A [id number] [phone] KE ORDOÑEZ PATIENT Selected Encounter This section includes the information on record at CT for the Encounter. Date/Time Encounter Type Encounter Description Reason Provider Source Feb 03, 2023 10:00 AM Outpatient Encounter PODIATRY EVI ZIMMER Encounter Template Text not used by CT Plan of Treatment: Future Appointments (+ 6 months) and Future Tests (+/- 45 days) The Plan of Treatment section includes future care activities for the patient from all CT treatmentfacilities. This section includes future appointments and future orders which are active, pending or scheduled. Future Appointments This section includes appointments that were scheduled to occur 6 months from the date of the Encounter, up to a maximum of 20 appointments. The data comes from all CT treatment facilities. Appointment Date/Time Appointment Type Appointme nt Facility Name May 05, 2023 08:30 AM AMBULATORY - SURGERY [facility] Jul 30, 2023 08:22 AM [facility] Jul 30, 2023 10:30 AM [facility] Active, Pending, and Scheduled Orders This section includes a listing of several types of active, pending, and scheduled orders, including clinic medications orders, diagnostic test orders, procedure orders and consult orders; where the start date of the order is 45 days before the date of the Encounter or 45 days after the date of theEncounter. The data comes from all [facility] facilities. Test Date/Time Test Type Test Details Facility Name Jan 15, 2023 12:00 AM Laboratory - Chemistry Order COMPREHENSIVE METABOLIC PANEL+MG PLASMA SP ONCE [facility] Jan 15, 2023 12:00 AM Laboratory - Chemistry Order CBC BLOOD SP [facility] Jan 15, 2023 12:00 AM Laboratory - Chemistry Order BNP PLASMA SP ONCE [facility] Jan 15, 2023 12:00 AM Laboratory - Chemistry Order URIC ACID PLASMA [facility] Jan 15, 2023 12:00 AM Laboratory - Chemistry Order LIPID PANEL,NON-FASTING PLASMA SP [facility] Social History: Smoking Status (Most current) and Tobacco Use (All prior to encounter date) This section includes the most current, and the historical, smoking and tobacco- related health factors from the CT facility where the Encounter took place. Current Smoking Status This section includes the most current smoking, or tobacco-related health factor, from the CT facility where the Encounter took place. Date/Time Current Smoking Status Comment Katarina verma Jan 15, 2022 11:00 AM VA-TOBACCO FORMER USER [facility] Tobacco Use History This section includes a history of the smoking, or tobacco-related health factors, that were collected on or before the date of the Encounter. The data comes from the CT facility where the Encounter took place. Date/Time Smoking Status/Tobacco Use Comment F acility Jan 15, 2022 11:00 AM VA-TOBACCO QUIT 15 YRS OR MORE [facility] December 14, 2020 01:30 PM VA-TOBACCO FORMER USER [facility] December 14, 2020 01:30 PM VA-TOBACCO QUIT 5 TO < 15 YRS [facility] Aug 19, 2019 11:35 AM VA-TOBACCO FORMER USER [facility] Aug 19, 2019 11:35 AM VA-TOBACCO QUIT 15 YRS OR MORE [facility] Aug 27, 2018 11:54 AM VA-TOBACCO DOESNT USE WI 30 MIN WAKEUP [facility] Aug 27, 2018 11:54 AM VA-TOBACCO USE 5 TO 15 YEARS [facility] Aug 27, 2018 11:54 AM VA-TOBACCO USE ADVICE [facility] Aug 27, 2018 11:54 AM 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 [facility] Aug 27, 2018 11:54 AM VA-TOBACCO USE MED NO [facility] Aug 27, 2018 11:54 AM VA-TOBACCO USER SOME DAYS [facility] Dec 24, 2016 12:51 PM FORMER TOBACCO USER 7Y OR GREATE R [facility] Sep 12, 2015 09:12 AM FORMER TOBACCO USE >1Y <7Y [facility] Sep 05, 2014 10:04 AM LIFETIME NON-TOBACCO USER [facility] Aug 25, 2014 09:45 AM FORMER TOBACCO USE >1Y <7Y [facility] Aug 03, 2014 06:11 PM FORMER TOBACCO USER 7Y OR GREATE R [facility] Aug 03, 2014 02:50 PM LIFETIME NON-TOBACCO USER [facility] Aug 01, 2014 11:24 AM FORMER TOBACCO USE >1Y <7Y [facility] Mar 07, 2013 08:45 AM FORMER TOBACCO USE >1Y <7Y [facility] Oct 17, 2009 07:56 AM CURRENT TOBACCO USER [facility] Sep 01, 2006 09:04 AM CURRENT TOBACCO USER [facility] Sep 01, 2006 09:04 AM FORMER TOBACCO USER 7Y OR GREATE R [facility] Advance Directives: All historical and current Section Date Range: From patient's date of to the date document was created. This section includes ALL of a patient's completed or amended CT Advance and Rescinded Directives. The entries below indicate that a directive exists for the patient, but an actual copy is not included with this document. The data comes from all CT facilities. Date Advance Directives Provider Source Sep 06, 2014 CLINICAL WARNING TOYIN COTA LIS [facility] Aug 05, 2014 CLINICAL WARNING ROEL MERCER IS [facility] Aug 01, 2014 CLINICAL WARNING ALETA MAZARIEGOS IS [facility] Jul 28, 2007 ADVANCE DIRECTIVE CATY ADORNO IS [facility] Encounter Notes: All associated encounter notes This section contains the clinical notes associated to the Encounter. Date/Time Encounter Note(s) Provider Source Feb 03, 2023 09:25 AM SUICIDE PREVENTION RISK ASSESSMENT SCREENING NOTE: LOCAL TITLE: [place] SCREENING NOTE STANDARD TITLE: SUICIDE PREVENTION RISK ASSESSMENT SCREENING NOT DATE OF NOTE: FEB 03, 2023@09:25 ENTRY DATE: FEB 03, 2023@09:26:06 AUTHOR: CYN BOSWELL EXP COSIGNER: URGENCY: STATUS: COMPLETED C-SSRS Screening [place] Suicide Severity Rating Scale (C-SSRS) screener 1. Over the past month, have you wished you were or wished you could go to sleep and not wake up? No 2. Over the past month, have you had any actual thoughts of killing yourself? No 3. Over the past month, have you been thinking about how you might do this? Response not required due to responses to other questions. 4. Over the past month, have you had these thoughts and had some intention of acting on them? Response not required due to responses to other questions. 5. Over the past month, have you started to work out or worked out the details of how to kill yourself? Response not required due to responses to other questions. 6. If yes, at any time in the past month did you intend to carry out this plan? Response not required due to responses to other questions. 7. In your lifetime, have you ever done anything, started to do anything, or prepared to do anything to end your life (for example, collected pills, obtained a gun, gave away valuables, went to the roof but didn't jump)? No 8. If YES, was this within the past 3 months? Response not required due to responses to other questions. /angelita/ CYN BOSWELL RN, WTA-C, CF REGISTERED NURSE Signed: 02/03/2023 09:28 CYN BOSWELL [facility]
--- OUTSIDE RECORDS SUMMARY | 2023-07-31 16:05 | XMS_ITS | Encounter Summary ---
Author Name [facility] of Vetera Affairs Organization [facility] of [facility] Address [address] [place] [address] Support Name Relationship Address Phone VICTORIA WALLER Next [place], [place] [phone] MOLLY TAYLOR Emergency Contact [place], [place] Unavail able AUGUSTIN [place] [address] Insurance Providers: All historical and current Section [...] PART A May 20, 2009 PART A [id number] KE ORDOÑEZ PATIENT Selected Encounter This section includes the information on record at [facility] for the Encounter. Date/Time Encounter Type Encounter Description Reason Provider Source Oct 14, 2022 02:13 PM OFFICE O/P EST SF 10-19 MIN GENERAL INTERNAL MEDICINE ICD-10-CM H00.022 Hordeolum internum right lower eyelid DELANEY BAKER [facility] Encounter Template Text not used by [facility] Assessments - Encounter Diagnoses This section includes the primary and secondary diagnoses documented for the Encounter. Date/Time Primary/Secondary Diagnosis Diagnosis Name Provider Source Oct 14, 2022 02:52 PM PRIMARY Hordeolum internum right lower eyelid DELANEY BAKER [facility] Plan of Treatment: Future Appointments (+ 6 months) and Future Tests (+/- 45 days) The Plan of Treatment section includes future care activities for the patient from all [facility] treatmentfacilities. This section includes future appointments and future orders which are active, pending or scheduled. Future Appointments This section includes appointments that were scheduled to occur 6 months from the date of the Encounter, up to a maximum of 20 appointments. The data comes from all [facility] treatment facilities. Appointment Date/Time Appointment Type Appointme nt Facility Name Feb 03, 2023 09:30 AM AMBULATORY - SURGERY [facility] Lab Results: +/- 30 days of the encounter This section includes the Chemistry and Hematology Lab Results on record with [facility] for the patient. Radiology Reports and Pathology Reports are provided separately, in subsequent sections. Lab Results This section contains the Chemistry/Hematology Results that were resulted 30 days before or 30 daysafter the date of the Encounter. Date/Time Source Result Type Result - Unit Interpretation Reference Range Comment Sep 25, 2022 12:33 PM [facility] HEMOGLOBIN A1C Specimen Type: BLOOD Comment: Values obtained from A1C measurements can vary. For typical A1C assays, a reported value of 7.0 could actually be between 6.7 and 7.3 if measured by a reference method. A reported value of 9.0 could actually be between 8.7 and 9.3. Ref: http://www.ngs p.org/CAPdata. asp Ordering Provider: JOSÉ LUIS ALVAREZ Report Released Date/Time: May 07, 2022 02:26 PM Reporting Lab: [facility] [id number] Performing Lab: [facility] [id number] HEMOGLOBIN A1C 5.5 4.0-6.0 Sep 25, 2022 12:33 PM [facility] BASIC METABOLIC PANEL+MG Specimen Type: PLASMA No comment entered. Ordering Provider: JOSÉ LUIS ALVAREZ Report Released Date/Time: May 07, 2022 02:26 PM Reporting Lab: [facility] [id number] Performing Lab: [facility] [id number] CREATININE 2.3 H 0.7-1.2 UREA NITROGEN 37 H 8-26 GLUCOSE 115 H 70-100 SODIUM 143 136-145 POTASSIUM 3.8 3.5-5.1 CHLORIDE 108 H 98-107 CO2 22 22-29 CALCIUM 9.2 8.4-10.2 MAGNESIUM 2.4 1.6-2.6 ANION GAP 13 5-15 CREAT EGFR(CKD-EPI ) 28 L >60 Social History: Smoking Status (Most current) and Tobacco Use (All prior to encounter date) This section includes the most current, and the historical, smoking and tobacco- related health factors from the [facility] facility where the Encounter took place. Current Smoking Status This section includes the most current smoking, or tobacco-related health factor, from the [facility] facility where the Encounter took place. Date/Time Current Smoking Status Comment Facil ity Jan 15, 2022 11:00 AM VA-TOBACCO FORMER USER [facility] Tobacco Use History This section includes a history of the smoking, or tobacco-related health factors, that were collected on or before the date of the Encounter. The data comes from the [facility] facility where the Encounter took place. Date/Time Smoking Status/Tobacco Use Comment F acility Jan 15, 2022 11:00 AM VA-TOBACCO QUIT 15 YRS OR MORE [facility] December 14, 2020 01:30 PM VA-TOBACCO FORMER USER [facility] December 14, 2020 01:30 PM VA-TOBACCO QUIT 5 TO < 15 YRS [facility] Aug 19, 2019 11:35 AM VA-TOBACCO FORMER USER [facility] Aug 19, 2019 11:35 AM VA-TOBACCO QUIT 15 YRS OR MORE [facility] Aug 27, 2018 11:54 AM VA-TOBACCO DOESNT USE WI 30 MIN WAKEUP [facility] Aug 27, 2018 11:54 AM VA-TOBACCO USE 5 TO 15 YEARS [facility] Aug 27, 2018 11:54 AM VA-TOBACCO USE ADVICE [facility] Aug 27, 2018 11:54 AM VA-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 [facility] Aug 27, 2018 11:54 AM VA-TOBACCO USE MED NO [facility] Aug 27, 2018 11:54 AM VA-TOBACCO USER SOME DAYS [facility] Dec 24, 2016 12:51 PM FORMER TOBACCO USER 7Y OR GREATE R [facility] Sep 12, 2015 09:12 AM FORMER TOBACCO USE >1Y <7Y [facility] Sep 05, 2014 10:04 AM LIFETIME NON-TOBACCO USER [facility] Aug 25, 2014 09:45 AM FORMER TOBACCO USE >1Y <7Y [facility] Aug 03, 2014 06:11 PM FORMER TOBACCO USER 7Y OR GREATE R [facility] Aug 03, 2014 02:50 PM LIFETIME NON-TOBACCO USER [facility] Aug 01, 2014 11:24 AM FORMER TOBACCO USE >1Y <7Y [facility] Mar 07, 2013 08:45 AM FORMER TOBACCO USE >1Y <7Y [facility] Oct 17, 2009 07:56 AM CURRENT TOBACCO USER [facility] Sep 01, 2006 09:04 AM CURRENT TOBACCO USER [facility] Sep 01, 2006 09:04 AM FORMER TOBACCO USER 7Y OR GREATE R [facility] Advance Directives: All historical and current Section Date Range: From patient's date of to the date document was created. This section includes ALL of a patient's completed or amended [facility] Advance and Rescinded Directives. The entries below indicate that a directive exists for the patient, but an actual copy is not included with this document. The data comes from all [facility]. Date Advance Directives Provider Source Sep 06, 2014 CLINICAL WARNING DEMETRIUSWinstonTOYINAntonia MCKENZIE [facility] Aug 05, 2014 CLINICAL WARNING ROEL MERCER [facility] Aug 01, 2014 CLINICAL WARNING MADISONMAKAYLAALETA Montero IS [facility] Jul 28, 2007 ADVANCE DIRECTIVE CATY ADORNO PRIYANKA IS [facility] Encounter Notes: All associated encounter notes This section contains the clinical notes associated to the Encounter. Date/Time Encounter Note(s) Provider Source Oct 14, 2022 02:13 PM TELEPHONE ENCOUNTE R NOTE: LOCAL TITLE: TELEPHONE CARE PROVIDER NOTE VV STANDARD TITLE: TELEPHONE ENCOUNTER NOTE DATE OF NOTE: OCT 14, 2022@14:13 ENTRY DATE: OCT 14, 2022@14:13:49 AUTHOR: DELANEY BAKER COSIGNER: URGENCY: STATUS: COMPLETED GRISIM,IMAN R 77 MALE was identified using full name and last 4 of SSN Consent: Patient verbally consented to receive this care by telehealth Address: Current address/location was confirmed Same as listed residential address [address] [place] [address] Different from listed address: NA Phone number: Emergency contact number:none given All participants in virtual conference room were identified and confirmed assisted with the VVC call by RN at the Assisted living facility Virtual conference room was locked Allergies: Patient has answered NKA Per wrister note: (Refer to full wrister note for additional information) Mood disorder (SCT 43208212) Hypertension (SCT 95529822) Bipolar, Manic Full Rem (ICD-9-CM 296.46Idiopathic fecal incontinence (SCT 025406932) Chronic kidney disease stage 3 (SCT 4331Diabetes Mellitus Type 2 (SCT 56580972) Diastolic heart failure (SCT 382160123) [place] call back number: patient CHIEF COMPLAINT: R eye PERTINENT CLINICAL HISTORY: symptoms x 1 wk itchy red drainage t/o the day denies new vision changes or pain PROBLEM-FOCUSED EXAM: VVC cauc male WDWN NAD R eye viewed was able to view and compare to Left eye R eye : noting erythema and edema to the edge of the lower inner canthus area of the eyelid possible nodule to the inner aspect of the lower eyelind in same region the sclera w/o erythema or discharge full EOM REVIEW OF LAB/X-RAY/CONSULTS: Creatinine: CREATININE 2.3 H (09/25/22) Hemoglobin A1C: SLT - Lab Tests Selected Collection DT Specimen Test Name Result Units Ref Range 01/15/2022 09:23 BLOOD HGB 15.9 g/dL 13.5 - 17.9 07/18/2021 09:46 BLOOD !! HGB 15.1 g/dL 13.5 - 17.9 !! Indicates COMMENTS AVAILABLE...Refer to Interim Lab Report. ASSESSMENT/DIAGNOSIS: 77 y/o male R eye itching occ discharge x 1 week denies URI symptoms. Denies pain or vision changes on exam R inner lower eyelid with erythema mild edema and possible internal nodule PLAN: recommend warm compress to the are 3-4 x/day 10- 15 min should resolve over the next 7days if no resolving by 2 wks of onset recommend eval by senior procurement specialist. Will need to speak to PCP/PACT team for referral Education/Counseling: Diagnosis/rationale for recommendations was discussed with was asked to call back: see note above First call resolution: Yes (x) No () NA () Total time spent acquisition analyst was [] 5 to 10 min, [] 11 to 20 min, [x] 21 to 30 min NOTE TO PACT TEAM: FYI; PACT RN follow up call recommended in 7 days per pact team discretion Thank you for the opportunity to care for this ! /angelita/ NICHELLE GALAVIZ APRN Signed: 10/14/2022 14:52 Receipt Acknowledged By: * AWAITING SIGNATURE * JEREMIAH MORALEZ * AWAITING SIGNATURE * EVELYN PELLETIER LISA [facility]
--- OUTSIDE RECORDS SUMMARY | 2023-07-31 16:05 | XMS_ITS | Encounter Summary ---
Author Name Department of Vetera [facility] Organization Department of Vetera [facility] Address [address] [place] [address] Support Name Relationship Address Phone VICTORIA WALLER Next of [place], [place] CHENEGAMOLLY Emergency Contact [place], [place] Unavail able AUGUSTIN ORDOÑEZN [place], [place] [phone] Insurance Providers: All historical and current Section [...] PART A May 20, 2009 PART A [id number] [phone] KE ORDOÑEZ PATIENT Selected Encounter This section includes the information on record at [facility] for the Encounter. Date/Time Encounter Type Encounter Description Reason Pro vider Source Oct 21, 2022 02:30 PM Outpatient Encounter TELEPHONE PRIMARY CARE IHE Encounter Template Text not used by [facility] Plan of Treatment: Future Appointments (+ 6 months) and Future Tests (+/- 45 days) The Plan of Treatment section includes future care activities for the patient from all [facility] treatmentfacilities. This section includes future appointments and future orders which are active, pending or scheduled. Future Appointments This section includes appointments that were scheduled to occur 6 months from the date of the Encounter, up to a maximum of 20 appointments. The data comes from all [facility] treatment facilities. Appointment Date/Time Appointment Type Appointme nt Facility Name Feb 03, 2023 09:30 AM AMBULATORY - SURGERY [facility] Lab Results: +/- 30 days of the encounter This section includes the Chemistry and Hematology Lab Results on record with [facility] for the patient. Radiology Reports and Pathology Reports are provided separately, in subsequent sections. Lab Results This section contains the Chemistry/Hematology Results that were resulted 30 days before or 30 daysafter the date of the Encounter. Date/Time Source Result Type Result - Unit Interpretation Reference Range Comment Sep 25, 2022 12:33 PM [facility] HEMOGLOBIN A1C Specimen Type: BLOOD Comment: Values [...] 07, 2022 02:26 PM Reporting Lab: [facility] [id number] Performing Lab: [facility] [id number] HEMOGLOBIN A1C 5.5 4.0-6.0 Sep 25, 2022 12:33 PM [facility] BASIC METABOLIC PANEL+MG Specimen Type: PLASMA No comment entered. Ordering Provider: JOSÉ LUIS ALVAREZ Report Released Date/Time: May 07, 2022 02:26 PM Reporting Lab: [facility] [id number] Performing Lab: [facility] [id number] CREATININE 2.3 H 0.7-1.2 UREA NITROGEN 37 [...] and tobacco- related health factors from the [facility] where the Encounter took place. Current Smoking Status This section includes the most current smoking, or tobacco-related health factor, from the [place] facility where the Encounter took place. Date/Time Current Smoking Status Comment Facil [place] Jan 15, 2022 11:00 AM VA-TOBACCO FORMER USER [facility] Tobacco Use History This section includes a history of the smoking, or tobacco-related health factors, that were collected on or before the date of the Encounter. The data comes from the [place] facility where the Encounter took place. Date/Time Smoking Status/Tobacco Use Comment F acility Jan 15, 2022 11:00 AM VA-TOBACCO QUIT 15 YRS OR MORE [facility] December 14, 2020 01:30 PM VA-TOBACCO FORMER USER [facility] December 14, 2020 01:30 PM VA-TOBACCO QUIT 5 TO < 15 YRS [facility] Aug 19, 2019 11:35 AM VA-TOBACCO FORMER USER [facility] Aug 19, 2019 11:35 AM VA-TOBACCO QUIT 15 YRS OR MORE [facility] Aug 27, 2018 11:54 AM VA-TOBACCO DOESNT USE WI 30 MIN WAKEUP [facility] Aug 27, 2018 11:54 AM VA-TOBACCO USE 5 TO 15 YEARS [facility] Aug 27, 2018 11:54 AM VA-TOBACCO USE ADVICE [facility] Aug 27, 2018 11:54 AM 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 [facility] Aug 27, 2018 11:54 AM VA-TOBACCO USE MED NO [facility] Aug 27, 2018 11:54 AM VA-TOBACCO USER SOME DAYS [facility] Dec 24, 2016 12:51 PM FORMER TOBACCO USER 7Y OR GREATE R [facility] Sep 12, 2015 09:12 AM FORMER TOBACCO USE >1Y <7Y [facility] Sep 05, 2014 10:04 AM LIFETIME NON-TOBACCO USER [facility] Aug 25, 2014 09:45 AM FORMER TOBACCO USE >1Y <7Y [facility] Aug 03, 2014 06:11 PM FORMER TOBACCO USER 7Y OR GREATE R [facility] Aug 03, 2014 02:50 PM LIFETIME NON-TOBACCO USER [facility] Aug 01, 2014 11:24 AM FORMER TOBACCO USE >1Y <7Y [facility] Mar 07, 2013 08:45 AM FORMER TOBACCO USE >1Y <7Y [facility] Oct 17, 2009 07:56 AM CURRENT TOBACCO USER [facility] Sep 01, 2006 09:04 AM CURRENT TOBACCO USER [facility] Sep 01, 2006 09:04 AM FORMER TOBACCO USER 7Y OR GREATE R [facility] Advance Directives: All historical and current Section Date Range: From patient's date of to the date document was created. This section includes ALL of a patient's completed or amended [place] Advance and Rescinded Directives. The entries below indicate that a directive exists for the patient, but an actual copy is not included with this document. The data comes from all [place] facilities. Date Advance Directives Provider Source Sep 06, 2014 CLINICAL WARNING TOYIN COTA LIS [facility] Aug 05, 2014 CLINICAL WARNING ROEL MERCER IS [facility] Aug 01, 2014 CLINICAL WARNING ALETA MAZARIEGOS IS [facility] Jul 28, 2007 ADVANCE DIRECTIVE CATY ADORNO IS [facility] Encounter Notes: All associated encounter notes This section contains the clinical notes associated to the Encounter. Date/Time Encounter Note(s) Provider Source Oct 21, 2022 02:30 PM REPORT OF CONTACT: LOCAL TITLE: PATIENT CONTACT NOTE STANDARD TITLE: REPORT OF CONTACT DATE OF NOTE: OCT 21, 2022@14:30 ENTRY DATE: OCT 21, 2022@14:31:02 AUTHOR: JEREMIAH MORALEZ EXP COSIGNER: URGENCY: STATUS: COMPLETED Patient contact Name of : HELENARAGINIHEMALIMAN Elsie Name/Relationship of Contact if other than : Date & Time of Contact: Oct@14:31 Type of Contact: Telephone Reason for Contact: F/U on warm compresses for eye. Attempted F/U contact call and identifying VM received and message left with return number. /angelita/ JEREMIAH MORALEZ ATM TECHNICIAN Signed: 10/21/2022 14:32 JEREMIAH MORALEZ [facility]
--- OUTSIDE RECORDS SUMMARY | 2023-07-31 16:05 | XMS_ITS | Encounter Summary ---
Author Name Department of [facility] Organization Department of [facility] Address [address] [place] [address] Support Name Relationship Address Phone VICTORIA WALLER Next of [place], [place] [phone] MOLLY TAYLOR Emergency Contact [place], [place] Unavail able AUGUSTIN ORDOÑEZN [place], [place] [id number] [phone] Insurance Providers: All historical and current Section [...] PART A May 20, 2009 PART A [id number] KE ORDOÑEZ PATIENT Selected Encounter This section includes the information on record at [place] for the Encounter. Date/Time Encounter Type Encounter Description Reason Provider Source Oct 14, 2022 01:44 PM Outpatient Encounter TELEPHONE TRIAGE NIDHI FRENCH [facility] Encounter Template Text not used by [place] Plan of Treatment: Future Appointments (+ 6 months) and Future Tests (+/- 45 days) The Plan of Treatment section includes future care activities for the patient from all [place] treatmentfacilities. This section includes future appointments and future orders which are active, pending or scheduled. Future Appointments This section includes appointments that were scheduled to occur 6 months from the date of the Encounter, up to a maximum of 20 appointments. The data comes from all [place] treatment facilities. Appointment Date/Time Appointment Type Appointme nt Facility Name Feb 03, 2023 09:30 AM AMBULATORY - SURGERY [facility] Lab Results: +/- 30 days of the encounter This section includes the Chemistry and Hematology Lab Results on record with [place] for the patient. Radiology Reports and Pathology Reports are provided separately, in subsequent sections. Lab Results This section contains the Chemistry/Hematology Results that were resulted 30 days before or 30 daysafter the date of the Encounter. Date/Time Source Result Type Result - Unit Interpretation Reference Range Comment Sep 25, 2022 12:33 PM [facility] HEMOGLOBIN A1C Specimen Type: BLOOD [...] May 07, 2022 02:26 PM Reporting Lab: [facility] [id number] Performing Lab: [facility] [id number] HEMOGLOBIN A1C 5.5 4.0-6.0 Sep 25, 2022 12:33 PM [facility] BASIC METABOLIC PANEL+MG Specimen Type: PLASMA No comment entered. Ordering Provider: JOSÉ LUIS ALVAREZ Report Released Date/Time: May 07, 2022 02:26 PM Reporting Lab: [facility] [id number] Performing Lab: [facility] [id number] CREATININE 2.3 H 0.7-1.2 UREA NITROGEN 37 [...] and tobacco- related health factors from the [place] facility where the Encounter took place. Current Smoking Status This section includes the most current smoking, or tobacco-related health factor, from the [place] facility where the Encounter took place. Date/Time Current Smoking Status Comment Facil [facility] Jan 15, 2022 11:00 AM VA-TOBACCO FORMER USER [facility] Tobacco Use History This section includes a history of the smoking, or tobacco-related health factors, that were collected on or before the date of the Encounter. The data comes from the [place] facility where the Encounter took place. Date/Time Smoking Status/Tobacco Use Comment F acility Jan 15, 2022 11:00 AM VA-TOBACCO QUIT 15 YRS OR MORE [facility] December 14, 2020 01:30 PM VA-TOBACCO FORMER USER [facility] December 14, 2020 01:30 PM VA-TOBACCO QUIT 5 TO < 15 YRS [facility] Aug 19, 2019 11:35 AM VA-TOBACCO FORMER USER [facility] Aug 19, 2019 11:35 AM VA-TOBACCO QUIT 15 YRS OR MORE [facility] Aug 27, 2018 11:54 AM VA-TOBACCO DOESNT USE WI 30 MIN WAKEUP [facility] Aug 27, 2018 11:54 AM VA-TOBACCO USE 5 TO 15 YEARS [facility] Aug 27, 2018 11:54 AM VA-TOBACCO USE ADVICE [facility] Aug 27, 2018 11:54 AM 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 [facility] Aug 27, 2018 11:54 AM VA-TOBACCO USE MED NO [facility] Aug 27, 2018 11:54 AM VA-TOBACCO USER SOME DAYS [facility] Dec 24, 2016 12:51 PM FORMER TOBACCO USER 7Y OR GREATE R [facility] Sep 12, 2015 09:12 AM FORMER TOBACCO USE >1Y <7Y [facility] Sep 05, 2014 10:04 AM LIFETIME NON-TOBACCO USER [facility] Aug 25, 2014 09:45 AM FORMER TOBACCO USE >1Y <7Y [facility] Aug 03, 2014 06:11 PM FORMER TOBACCO USER 7Y OR GREATE R [facility] Aug 03, 2014 02:50 PM LIFETIME NON-TOBACCO USER [facility] Aug 01, 2014 11:24 AM FORMER TOBACCO USE >1Y <7Y [facility] Mar 07, 2013 08:45 AM FORMER TOBACCO USE >1Y <7Y [facility] Oct 17, 2009 07:56 AM CURRENT TOBACCO USER [facility] Sep 01, 2006 09:04 AM CURRENT TOBACCO USER [facility] Sep 01, 2006 09:04 AM FORMER TOBACCO USER 7Y OR GREATE R [facility] Advance Directives: All historical and current Section Date Range: From patient's date of to the date document was created. This section includes ALL of a patient's completed or amended [place] Advance and Rescinded Directives. The entries below indicate that a directive exists for the patient, but an actual copy is not included with this document. The data comes from all [place] facilities. Date Advance Directives Provider Source Sep 06, 2014 CLINICAL WARNING TOYIN COTA LIS [facility] Aug 05, 2014 CLINICAL WARNING ROEL MERCER IS [facility] Aug 01, 2014 CLINICAL WARNING ALETA MAZARIEGOS IS [facility] Jul 28, 2007 ADVANCE DIRECTIVE CATY ADORNO IS [facility] Encounter Notes: All associated encounter notes This section contains the clinical notes associated to the Encounter. Date/Time Encounter Note(s) Provider Source Oct 14, 2022 01:44 PM RN PROGRESS NOTE: LOCAL TITLE: CCC: CLINICAL TRIAGE STANDARD TITLE: RN PROGRESS NOTE DATE OF NOTE: OCT 14, 2022@13:44:10 ENTRY DATE: OCT 14, 2022@13:44:10 AUTHOR: NIDHI FRENCH COSIGNER: URGENCY: STATUS: COMPLETED Patient Demographics Patient Name: IMAN ORDOÑEZ Patient Primary Address: [address] [place] [address] Patient Primary Phone: [phone] Patient : 1945 Patient Age: 77 SSN: [id number] Caller/Recipient Relation to Patient: Home Health Caller Name: Kaitlynn Emergency Contact: MOLLY YANKTON Triage Summary Nurse Summary: VISN 23 TRIAGE NURSE NOTES PATIENT CONCERN/DURATION/ONSET: 's Assisted Living RN states has had a red, itchy, right eye with some yellow discharge x1 week. Denies pain, fever, and swelling, The redness is on the inside corner of the eye. WHAT HAS THE PATIENT TRIED TO TREAT THE SYMPTOMS: No Home Measures HISTORY/PREVIOUS TREATMENT: COVID Vaccine, WHAT IS PATIENT GOAL FOR THE CALL: Evaluation of right eye DID YOU CONSIDER USING 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 [facility] RN verbalizes understanding of plan of care. Best contact for [facility] is [phone] (Verified). (Caller could accurately summarize the agreed upon plan of care as discussed in the education log portion of this note.) Per policy, automated recommendations for an ?appointment? indicates an interaction (virtual or in-person) with the care team. Pain Score: 0 (No Pain) Conducted triage/discussed symptoms Utilized the Triage Tool: Yes Conducted COVID Screening COVID Screening Results: Negative Chief Complaint: Eye Drainage System WHEN: Within 24 Hours Nurse's Recommendation / WHEN: Within 24 Hours System WHERE: Clinic Nurse's Recommendation / WHERE: Telephone Visit Covid Screening Patient confirms the following symptoms Screen is negative Patient Disposition Patient/Caregiver agrees to plan of care: Yes Summary of Actions Referred for [facility] Virtual Clinic Visit Transferred patient to [facility] Admin[facility] Clinical Contact Center Codes Clinic/Location: 3 [facility] PHONE CCC RN TXCC Triage Complete Triage Note: Phone Triage 14 Oct 2022 18:30:19 +0000 [facility] Demographics 77 y/o Male Results CC: Eye Drainage Software suggested: Within 24 Hours Software suggested follow-up location: Clinic, consider virtual care Values and Measures Duration of CC: 1 Weeks Positive Responses HPI: eye discharge, exudative HPI: eye discharge, unilateral HPI: eye redness Negative Responses Denies: HPI: corneal opacification Denies: HPI: eye pain Denies: HPI: photophobia, unilateral /es/ NIDHI Price [facility] resident services supervisor, BSN Signed: 10/14/2022 13:44 Receipt Acknowledged By: * AWAITING SIGNATURE * DELANEY BAKER * AWAITING SIGNATURE * HANS LEWIS ELEANOR M [facility]
--- OUTSIDE RECORDS SUMMARY | 2023-07-31 16:06 | XMS_ITS | Encounter Summary ---
Author Name [facility] Organization Department of [facility] Address [address] [place] [address] Support Name Relationship Address Phone VICTORIA WALLER Next [place], [place] MOLLY TAYLOR Emergency Contact [place], [place] Unavail able AUGUSTIN ORDOÑEZN [place], [place] [phone] Insurance Providers: All historical and current Section [...] PART A May 20, 2009 PART A [id number] KE ORDOÑEZ PATIENT Selected Encounter This section includes the information on record at [place] for the Encounter. 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 This section includes future appointments and future orders which are active, pending or scheduled. Future Appointments This section includes appointments that were scheduled to occur 6 months from the date of the Encounter, up to a maximum of 20 appointments. The data comes from all [place] treatment facilities. Appointment Date/Time Appointment Type Appointme nt Facility Name Feb 03, 2023 09:30 AM AMBULATORY - SURGERY [facility] Lab Results: +/- 30 days of the encounter This section includes the Chemistry and Hematology Lab Results on record with [place] for the patient. Radiology Reports and Pathology Reports are provided separately, in subsequent sections. Lab Results This section contains the Chemistry/Hematology Results that were resulted 30 days before or 30 daysafter the date of the Encounter. Date/Time Source Result Type Result - Unit Interpretation Reference Range Comment Sep 25, 2022 12:33 PM [facility] HEMOGLOBIN A1C Specimen Type: BLOOD Comment: Values obtained from A1C measurements can vary. For typical A1C assays, a reported value of 7.0 could actually be between 6.7 and 7.3 if measured by a reference method. A reported value of 9.0 could actually be between 8.7 and 9.3. Ref: http://www.ngs p.org/CAPdata. asp Ordering Provider: DEBBIE OSEI Report Released Date/Time: May 07, 2022 02:26 PM Reporting Lab: [facility] [id number] Performing Lab: [facility] [id number] HEMOGLOBIN A1C 5.5 4.0-6.0 Sep 25, 2022 12:33 PM [facility] BASIC METABOLIC PANEL+MG Specimen Type: PLASMA No comment entered. Ordering Provider: DEBBIE OSEI Report Released Date/Time: May 07, 2022 02:26 PM Reporting Lab: [facility] [id number] Performing Lab: [facility] [id number] CREATININE 2.3 H 0.7-1.2 UREA NITROGEN 37 [...] and tobacco- related health factors from the [place] facility where the Encounter took place. Current Smoking Status This section includes the most current smoking, or tobacco-related health factor, from the [place] facility where the Encounter took place. Date/Time Current Smoking Status Comment Facil ity Jan 15, 2022 11:00 AM VA-TOBACCO FORMER USER [facility] Tobacco Use History This section includes a history of the smoking, or tobacco-related health factors, that were collected on or before the date of the Encounter. The data comes from the [place] facility where the Encounter took place. Date/Time Smoking Status/Tobacco Use Comment F acility Jan 15, 2022 11:00 AM VA-TOBACCO QUIT 15 YRS OR MORE [facility] December 14, 2020 01:30 PM VA-TOBACCO FORMER USER [facility] December 14, 2020 01:30 PM VA-TOBACCO QUIT 5 TO < 15 YRS [facility] Aug 19, 2019 11:35 AM VA-TOBACCO FORMER USER [facility] Aug 19, 2019 11:35 AM VA-TOBACCO QUIT 15 YRS OR MORE [facility] Aug 27, 2018 11:54 AM VA-TOBACCO DOESNT USE WI 30 MIN WAKEUP [facility] Aug 27, 2018 11:54 AM VA-TOBACCO USE 5 TO 15 YEARS [facility] Aug 27, 2018 11:54 AM VA-TOBACCO USE ADVICE [facility] Aug 27, 2018 11:54 AM VA-TOBACCO USE 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 [facility] Aug 27, 2018 11:54 AM VA-TOBACCO USE MED NO [facility] Aug 27, 2018 11:54 AM VA-TOBACCO USER SOME DAYS [facility] Dec 24, 2016 12:51 PM FORMER TOBACCO USER 7Y OR GREATE R [facility] Sep 12, 2015 09:12 AM FORMER TOBACCO USE >1Y <7Y [facility] Sep 05, 2014 10:04 AM LIFETIME NON-TOBACCO USER [facility] Aug 25, 2014 09:45 AM FORMER TOBACCO USE >1Y <7Y [facility] Aug 03, 2014 06:11 PM FORMER TOBACCO USER 7Y OR GREATE R [facility] Aug 03, 2014 02:50 PM LIFETIME NON-TOBACCO USER [facility] Aug 01, 2014 11:24 AM FORMER TOBACCO USE >1Y <7Y [facility] Mar 07, 2013 08:45 AM FORMER TOBACCO USE >1Y <7Y [facility] Oct 17, 2009 07:56 AM CURRENT TOBACCO USER [facility] Sep 01, 2006 09:04 AM CURRENT TOBACCO USER [facility] Sep 01, 2006 09:04 AM FORMER TOBACCO USER 7Y OR GREATE R [facility] Advance Directives: All historical and current Section Date Range: From patient's date of to the date document was created. This section includes ALL of a patient's completed or amended [place] Advance and Rescinded Directives. The entries below indicate that a directive exists for the patient, but an actual copy is not included with this document. The data comes from all [facility]. Date Advance Directives Provider Source Sep 06, 2014 CLINICAL WARNING ELLISPOWERJACOBWinstonTOYIN ALFALANNY [facility] Aug 05, 2014 CLINICAL WARNING ROEL MERCER IS [facility] Aug 01, 2014 CLINICAL WARNING ANDREPOWERMAKAYLAALETA Montero IS [facility] Jul 28, 2007 ADVANCE DIRECTIVE CATY ADORNO PRIYANKA IS [facility] Encounter Notes: All associated encounter notes This section contains the clinical notes associated to the Encounter. Date/Time Encounter Note(s) Provider Source Sep 25, 2022 03:26 PM PHARMACY NOTE: LOCAL TITLE: RENAL CLINIC PHARMACIST NOTE STANDARD TITLE: PHARMACY NOTE DATE OF NOTE: SEP 25, 2022@15:26 ENTRY DATE: SEP 25, 2022@15:26:22 AUTHOR: DEBBIE OSEI EXP COSIGNER: URGENCY: STATUS: COMPLETED RENAL CLINIC PHARMACIST NOTE Has ADDENDA Sodium-Glucose Cotransporter-2 Inhibitors VISN Initiative Chart review following receipt of lab results. Current Type 2 DM Therapy: - Empagliflozin 12.5mg QAM. --------- OBJECTIVE --------- ALLERGIES/ADR: Patient has answered NKA MEDICATION RECONCILIATION: Active and Recently Outpatient Medications (excluding Supplies): Active Outpatient Medications Status 1) ALLOPURINOL 100MG TAB TAKE ONE TABLET BY MOUTH EVERY ACTIVE DAY FOR GOUT PREVENTION 2) AMLODIPINE BESYLATE 10MG TAB TAKE ONE-HALF TABLET BY ACTIVE MOUTH AT BEDTIME FOR BLOOD PRESSURE 3) ATORVASTATIN CALCIUM 20MG TAB TAKE ONE-HALF TABLET BY ACTIVE MOUTH AT BEDTIME FOR CHOLESTEROL 4) CYANOCOBALAMIN 1000MCG TAB TAKE ONE TABLET BY MOUTH ACTIVE EVERY DAY FOR VITAMIN B12 DEFICIENCY 5) EMPAGLIFLOZIN 25MG TAB TAKE ONE-HALF TABLET BY MOUTH ACTIVE EVERY MORNING FOR DIABETES AND KIDNEY. DRINK WATER THROUGHOUT DAY TO STAY HYDRATED. 6) FUROSEMIDE 20MG TAB TAKE ONE TABLET BY MOUTH EVERY ACTIVE DAY 7) LISINOPRIL 40MG TAB TAKE ONE TABLET BY MOUTH EVERY ACTIVE MORNING FOR HIGH BLOOD PRESSURE 8) MAGNESIUM OXIDE 420MG TAB TAKE ONE TABLET BY MOUTH ACTIVE EVERY DAY FOR MAGNESIUM DEFICIENCY 9) VANICREAM TOP CREAM APPLY THIN LAYER TOPICALLY EVERY ACTIVE DAY FOR DRY SKIN, IDEALLY WITHIN 3 MINUTES AFTER BATH OR SHOWER. Active Non-VA Medications Status 1) Non-VA ALLOPURINOL TAB 100MG [facility] ACTIVE AFFILIATED WITH ANT ABARCA [phone] (F), (PHONE) 2) Non-VA NON VA MED NOT LISTED MISCELLANEOUS CALL IN ACTIVE MEDICATIONS TO [facility] [phone] (F), (PHONE) 3) Non-VA SNF MEDICATIONS MISCELLANEOUS PRN [facility] ACTIVE MEDS, ANTIACID, LOPERAMIDE, DIPHENHYDRAMINE PRN ALLERGIES, APAP, MILK OF MG, SENNA, COUGH SYRUP, A\T\D, PERICARE, VANICREAM 12 Total Medications LABS: Basic Metabolic Panel SODIUM 143 (09/25/22) POTASSIUM 3.8 (09/25/22) CREATININE 2.3 H (09/25/22) UREA NITROGEN 37 H (09/25/22) GLUCOSE 115 H (09/25/22) CO2 22 (09/25/22) CHLORIDE 108 H (09/25/22) EGFR (02/20) 07/18/21 @ 0946 33 L CREATININE EGFR (CKD-EPI) 09/25/22 @ 1233 28 L MAGNESIUM 2.4 (09/25/22) Collection DT Specimen Test Name Result Units Ref Range 09/25/2022 12:33 PLASMA CREATININE 2.3 H mg/dL 0.7 - 1.2 01/15/2022 09:23 PLASMA CREATININE 2.3 H mg/dL 0.7 - 1.2 07/18/2021 09:46 PLASMA CREATININE 2.0 H mg/dL 0.7 - 1.2 09/25/2022 12:33 PLASMA CREAT EGFR(CKD-EP 28 L Ref: >=60 01/15/2022 09:23 PLASMA CREAT EGFR(CKD-EP 29 L Ref: >=60 07/18/2021 09:46 PLASMA ESTIMATED GFR(eGF 33 L Ref: >=60 12/14/2020 10:05 PLASMA!! ESTIMATED GFR(eGF 35 L Ref: >=60 03/26/2020 05:30 PLASMA ESTIMATED GFR(eGF 37 L Ref: >=60 No data available for: ALB/CREAT RATIO,UR Collection DT Spec HGBA1C 09/25/2022 12:33 BLOOD 5.5 01/15/2022 09:23 BLOOD 6.2 H 07/18/2021 09:45 BLOOD 5.7 VITALS: Blood Pressure: 122/66 (01/15/2022 11:31) Pulse: 76 (01/15/2022 10:06) BMI: 29.5 ASSESSMENT Sodium-Glucose Cotransporter-2 Inhibitors VISN Initiative Vet with type 2 diabetes and ckd, currently on new empagliflozin. Chart review conducted today upon receipt of lab results following empagliflozin-initiation on 05/07/2022. PMH also significant for hf. Per lab results dated 09/25/2021, HbA1c is 5.5% has decreased from 6.2% (12/2021), which is appropriate on monotherapy empagliflozin. eGFR and BUN/SCr remain stable compared to 12/2021 labs. As labs are stable on current empagliflozin, OK to continue therapy. Will discharge from sglt2i initiative. ----- PLANS ----- - Continue empagliflozin 12.5mg QAM. Drink water to maintain adequate hydration. --------- FOLLOW-UP --------- - Telephone f/u --> none. Discharge from sglt2i initiative. Time spent: 15 minutes Debbie Osei PharmD, ALEXANDER /angelita/ DEBBIE OSEI PHARMD, ALEXANDER CLINICAL PHARMACIST PRACTITIONER Signed: 09/25/2022 15:32 09/25/2022 ADDENDUM STATUS: COMPLETED Requesting lab letter be to Vet's home address indicating: Per 09/25/2022 labs: - HbA1c: at-goal - eGFR: stable ----- PLANS ----- - Continue empagliflozin 12.5mg QAM. Vet advised to continue maintaining adequate hydration by drinking water. 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 Thank you! /vince OSEI PHARMD, ALEXANDER CLINICAL PHARMACIST PRACTITIONER Signed: 09/25/2022 15:32 Receipt Acknowledged By: 09/26/2022 09:50 /vince ARMSTRONG LPN 09/26/2022 ADDENDUM STATUS: COMPLETED Lab letter sent and patient instructed that the medication jardiance will now be managed by PCP. /vince ARMSTRONG LPN Signed: 09/26/2022 09:49 02/03/2023 ADDENDUM STATUS: COMPLETED Vet requesting a renewal for empagliflozin rx. Empagliflozin was started on May 07, 2022 and rx + refills for the year was issued. Vet was stable on empagliflozin and discharged from the sglt2i initiative on 09/25/2022. Will defer empagliflozin med renewal to PCP. Thank you! /vince OSEI PHARMD, ALEXANDER CLINICAL PHARMACIST PRACTITIONER Signed: 02/03/2023 14:06 Receipt Acknowledged By: * AWAITING SIGNATURE * EVELYN PELLETIER PEARL HUYEN [facility]
--- OUTSIDE RECORDS SUMMARY | 2023-07-31 16:06 | XMS_ITS | Encounter Summary ---
Author Name Department of Vetera Affairs Organization [facility] of [facility] Affairs Address [address] [place] [address] Support Name Relationship Address Phone VICTORIA WALLER Next [place], [place] MOLLY TAYLOR Emergency Contact [place], [place]av[place] [address] [phone] Insurance Providers: All historical and current Section [...] PART A May 20, 2009 PART A [phone] KE ORDOÑEZ PATIENT Selected Encounter This section includes the information on record at [place] for the Encounter. Date/Time Encounter Type Encounter Description Reason Provider Source Sep 25, 2022 01:20 PM OFFICE O/P EST LOW 20-29 MIN PODIATRY ICD-10-CM E11.40 Type 2 diabetes mellitus with diabetic neuropathy, EVI Rogers [place] Encounter Template Text not used by [place] Assessments - Encounter Diagnoses This section includes the primary and secondary diagnoses documented for the Encounter. Date/Time Primary/Secondary Diagnosis Diagnosis Name Provider Source Sep 25, 2022 01:32 PM PRIMARY Type 2 diabetes mellitus with diabetic neuropathy, EVI Rogers [facility] Sep 25, 2022 01:32 PM SECONDARY Idiopathic gout, left ankle and foot EVI ZIMMER [facility] Sep 25, 2022 01:32 PM SECONDARY Idiopathic gout, right ankle and foot EVI ZIMMER [facility] Sep 25, 2022 01:32 PM SECONDARY Localized edema EVI ZIMMER [facility] Sep 25, 2022 01:32 PM SECONDARY Other hammer toe(s) (acquired), left foot EVI ZIMMER [facility] Sep 25, 2022 01:32 PM SECONDARY Other hammer toe(s) (acquired), right foot EVI ZIMMER [facility] Sep 25, 2022 01:32 PM SECONDARY Peripheral vascular disease, unspecified EVI ZIMMER [facility] Plan of Treatment: Future Appointments (+ 6 months) and Future Tests (+/- 45 days) The Plan of Treatment section includes future care activities for the patient from all [facility]. This section includes future appointments and future orders which are active, pending or scheduled. Future Appointments This section includes appointments that were scheduled to occur 6 months from the date of the Encounter, up to a maximum of 20 appointments. The data comes from all [facility] facilities. Appointment Date/Time Appointment Type Appointme nt Facility Name Feb 03, 2023 09:30 AM AMBULATORY - SURGERY [facility] Lab Results: +/- 30 days of the encounter This section includes the Chemistry and Hematology Lab Results on record with [place] for the patient. Radiology Reports and Pathology Reports are provided separately, in subsequent sections. Lab Results This section contains the Chemistry/Hematology Results that were resulted 30 days before or 30 daysafter the date of the Encounter. Date/Time Source Result Type Result - Unit Interpretation Reference Range Comment Sep 25, 2022 12:33 PM [facility] HEMOGLOBIN A1C Specimen Type: BLOOD Comment: Values [...] May 07, 2022 02:26 PM Reporting Lab: [facility] [id number] Performing Lab: [facility] [id number] HEMOGLOBIN A1C 5.5 4.0-6.0 Sep 25, 2022 12:33 PM [facility] BASIC METABOLIC PANEL+MG Specimen Type: PLASMA No comment entered. Ordering Provider: JOSÉ LUIS ALVAREZ Report Released Date/Time: May 07, 2022 02:26 PM Reporting Lab: [facility] [id number] Performing Lab: [facility] [id number] CREATININE 2.3 H 0.7-1.2 UREA NITROGEN 37 [...] and tobacco- related health factors from the [place] facility where the Encounter took place. Current Smoking Status This section includes the most current smoking, or tobacco-related health factor, from the [place] facility where the Encounter took place. Date/Time Current Smoking Status Comment Katarina verma Jan 15, 2022 11:00 AM VA-TOBACCO QUIT 15 YRS OR MORE [facility] Tobacco Use History This section includes a history of the smoking, or tobacco-related health factors, that were collected on or before the date of the Encounter. The data comes from the [place] facility where the Encounter took place. Date/Time Smoking Status/Tobacco Use Comment Inna bella Jan 15, 2022 11:00 AM VA-TOBACCO QUIT 15 YRS OR MORE [facility] December 14, 2020 01:30 PM VA-TOBACCO FORMER USER [facility] December 14, 2020 01:30 PM VA-TOBACCO QUIT 5 TO < 15 YRS [facility] Aug 19, 2019 11:35 AM VA-TOBACCO FORMER USER [facility] Aug 19, 2019 11:35 AM VA-TOBACCO QUIT 15 YRS OR MORE [facility] Aug 27, 2018 11:54 AM VA-TOBACCO DOESNT USE WI 30 MIN WAKEUP [facility] Aug 27, 2018 11:54 AM VA-TOBACCO USE 5 TO 15 YEARS [facility] Aug 27, 2018 11:54 AM VA-TOBACCO USE ADVICE [facility] Aug 27, 2018 11:54 AM VA-TOBACCO USE 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 [facility] Aug 27, 2018 11:54 AM VA-TOBACCO USE MED NO [facility] Aug 27, 2018 11:54 AM VA-TOBACCO USER SOME DAYS [facility] Dec 24, 2016 12:51 PM FORMER TOBACCO USER 7Y OR GREATE R [facility] Sep 12, 2015 09:12 AM FORMER TOBACCO USE >1Y <7Y [facility] Sep 05, 2014 10:04 AM LIFETIME NON-TOBACCO USER [facility] Aug 25, 2014 09:45 AM FORMER TOBACCO USE >1Y <7Y [facility] Aug 03, 2014 06:11 PM FORMER TOBACCO USER 7Y OR GREATE R [facility] Aug 03, 2014 02:50 PM LIFETIME NON-TOBACCO USER [facility] Aug 01, 2014 11:24 AM FORMER TOBACCO USE >1Y <7Y [facility] Mar 07, 2013 08:45 AM FORMER TOBACCO USE >1Y <7Y [facility] Oct 17, 2009 07:56 AM CURRENT TOBACCO USER [facility] Sep 01, 2006 09:04 AM CURRENT TOBACCO USER [facility] Sep 01, 2006 09:04 AM FORMER TOBACCO USER 7Y OR GREATE R [facility] Advance Directives: All historical and current Section Date Range: From patient's date of to the date document was created. This section includes ALL of a patient's completed or amended [place] Advance and Rescinded Directives. The entries below indicate that a directive exists for the patient, but an actual copy is not included with this document. The data comes from all [place] facilities. Date Advance Directives Provider Source Sep 06, 2014 CLINICAL WARNING TOYIN COTA LIS [facility] Aug 05, 2014 CLINICAL WARNING ROEL MERCER IS [facility] Aug 01, 2014 CLINICAL WARNING ALETA MAZARIEGOS ALFAROSALINA IS [facility] Jul 28, 2007 ADVANCE DIRECTIVE CATY ADORNO IS [facility] Encounter Notes: All associated encounter notes This section contains the clinical notes associated to the Encounter. Date/Time Encounter Note(s) Provider Source Sep 25, 2022 01:30 PM PODIATRY ATTENDING NOTE: LOCAL TITLE: PODIATRY CLINIC NOTE STANDARD TITLE: PODIATRY ATTENDING NOTE DATE OF NOTE: SEP 25, 2022@13:30 ENTRY DATE: SEP 25, 2022@13:30:59 AUTHOR: EVI ZIMMER EXP COSIGNER: URGENCY: STATUS: COMPLETED Subjective: 77 year old male presents to clinic for high risk foot care. No new issues or concerns today. He denies any lower extremity or foot pain currently. Feeling well and denies any n/v/f/c/sob/cp. Last documented Hgb A1c 5.5% on 09/25/22. Problems: Mood disorder ([facility] [id number]) Hypertension ([facility]CT [id number]) Bipolar, Manic Full Rem (ICD-9-CM 296.46Idiopathic fecal incontinence ([facility] [id number]) Chronic kidney disease stage 3 ([facility]CT 4331Diabetes Mellitus Type 2 ([facility] [id number]) Allergies: FACILITY ALLERGY/ADR -------- [facility] No Known Allergies [facility] NO KNOWN ALLERGIES Medications: Active Outpatient Medications [...] CAP,ORAL 100MG BID X 10 DAYS (TO [facility] 12-18-2020) MOUTH TWICE A DAY 10 [...] base of the fourth digit remains healed. Dried blood noted to the left 5th digit nail, removed toenail as loose and not attached at base. No open wound or signs of infection. Musculoskeletal: Arch height and contour normal. Hammertoe contractures are appreciated. Assessment: Gout DM II with peripheral neuropathy PVD Onychomycosis Hammertoe contractures Edema Plan: -Patient examined and evaluated. Discussed findings with patient. -Nails 1-10 were sharply debrided in length and thickness. -Patient will follow up in approximately 3 months for high risk foot care. 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
--- OUTSIDE RECORDS SUMMARY | 2023-07-31 16:07 | XMS_ITS | Encounter Summary ---
Author Name Department of Vetera [facility] Organization Department of [facility] Address [address] [place] [address] Support Name Relationship Address Phone VICTORIA WALLER Next [place], [place] [phone] [address] Emergency Contact [place], [place] Unavail able AUGUSTIN ORDOÑEZN [place], [place] [id number] Insurance Providers: All historical and current Section [...] PART A May 20, 2009 PART A [phone] KE ORDÑOEZ PATIENT Selected Encounter This section includes the information on record at [place] for the Encounter. Date/Time Encounter Type Encounter Description Reason Pro vider Source Jul 28, 2023 03:18 PM Outpatient Encounter TELEPHONE TRIAGE IHE Encounter Template Text not used by [place] Plan of Treatment: Future Appointments (+ 6 months) and Future Tests (+/- 45 days) The Plan of Treatment section includes future care activities for the patient from all [place] treatmentfacilities. This section includes future appointments and future orders which are active, pending or scheduled. Future Appointments This section includes appointments that were scheduled to occur 6 months from the date of the Encounter, up to a maximum of 20 appointments. The data comes from all [place] treatment facilities. Appointment Date/Time Appointment Type Appointme nt Facility Name Jul 30, 2023 08:22 AM AMBULATORY - NONE [facility] Jul 30, 2023 10:30 AM AMBULATORY - MEDICINE [facility] Active, Pending, and Scheduled Orders This section includes a listing of several types of active, pending, and scheduled orders, including clinic medications orders, diagnostic test orders, procedure orders and consult orders; where the start date of the order is 45 days before the date of the Encounter or 45 days after the date of theEncounter. The data comes from all [place] treatment facilities. Test Date/Time Test Type Test Details Facility Name Jul 30, 2023 11:56 AM Consult Order ORTHOPEDIC S OUTPT-FRACTURE Cons Research Biostatistician's Choice [facility] Jul 31, 2023 12:00 AM Imaging - General Radiology Order ELBOW LEFT 2 VIEWS LEFT [facility] Social History: Smoking Status (Most current) and Tobacco Use (All prior to encounter date) This section includes the most current, and the historical, smoking and tobacco- related health factors from the [place] facility where the Encounter took place. Current Smoking Status This section includes the most current smoking, or tobacco-related health factor, from the [place] facility where the Encounter took place. Date/Time Current Smoking Status Comment Facil ity Jan 15, 2022 11:00 AM VA-TOBACCO FORMER USER [facility] Tobacco Use History This section includes a history of the smoking, or tobacco-related health factors, that were collected on or before the date of the Encounter. The data comes from the [place] facility where the Encounter took place. Date/Time Smoking Status/Tobacco Use Comment F acility Jan 15, 2022 11:00 AM VA-TOBACCO QUIT 15 YRS OR MORE [facility] December 14, 2020 01:30 PM VA-TOBACCO FORMER USER [facility] December 14, 2020 01:30 PM VA-TOBACCO QUIT 5 TO < 15 YRS [facility] Aug 19, 2019 11:35 AM VA-TOBACCO FORMER USER [facility] Aug 19, 2019 11:35 AM VA-TOBACCO QUIT 15 YRS OR MORE [facility] Aug 27, 2018 11:54 AM VA-TOBACCO DOESNT USE WI 30 MIN WAKEUP [facility] Aug 27, 2018 11:54 AM VA-TOBACCO USE 5 TO 15 YEARS [facility] Aug 27, 2018 11:54 AM VA-TOBACCO USE ADVICE [facility] Aug 27, 2018 11:54 AM 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 [facility] Aug 27, 2018 11:54 AM VA-TOBACCO USE MED NO [facility] Aug 27, 2018 11:54 AM VA-TOBACCO USER SOME DAYS [facility] Dec 24, 2016 12:51 PM FORMER TOBACCO USER 7Y OR GREATE R [facility] Sep 12, 2015 09:12 AM FORMER TOBACCO USE >1Y <7Y [facility] Sep 05, 2014 10:04 AM LIFETIME NON-TOBACCO USER [facility] Aug 25, 2014 09:45 AM FORMER TOBACCO USE >1Y <7Y [facility] Aug 03, 2014 06:11 PM FORMER TOBACCO USER 7Y OR GREATE R [facility] Aug 03, 2014 02:50 PM LIFETIME NON-TOBACCO USER [facility] Aug 01, 2014 11:24 AM FORMER TOBACCO USE >1Y <7Y [facility] Mar 07, 2013 08:45 AM FORMER TOBACCO USE >1Y <7Y [facility] Oct 17, 2009 07:56 AM CURRENT TOBACCO USER [facility] Sep 01, 2006 09:04 AM CURRENT TOBACCO USER [facility] Sep 01, 2006 09:04 AM FORMER TOBACCO USER 7Y OR GREATE R [facility] Advance Directives: All historical and current Section Date Range: From patient's date of to the date document was created. This section includes ALL of a patient's completed or amended [place] Advance and Rescinded Directives. The entries below indicate that a directive exists for the patient, but an actual copy is not included with this document. The data comes from all [place] facilities. Date Advance Directives Provider Source Sep 06, 2014 CLINICAL WARNING ELLISPOWERJCAOBYESENIA MonteroN ALFALANNY LIS [facility] Aug 05, 2014 CLINICAL WARNING ROEL MERCER IS [facility] Aug 01, 2014 CLINICAL WARNING ALETA MAZARIEGOS IS [facility] Jul 28, 2007 ADVANCE DIRECTIVE CATY ADORNO PRIYANKA IS [facility] Encounter Notes: All associated encounter notes This section contains the clinical notes associated to the Encounter. Date/Time Encounter Note(s) Provider Source Jul 28, 2023 03:18 PM ADMINISTRATIVE NOT E: LOCAL TITLE: CCC: SCHEDULING ADMINISTRATION STANDARD TITLE: ADMINISTRATIVE NOTE DATE OF NOTE: JUL 28, 2023@15:18 ENTRY DATE: JUL 28, 2023@15:18:33 AUTHOR: XIMENA SEAMAN COSIGNER: URGENCY: STATUS: COMPLETED CCC: SCHEDULING ADMINISTRATION Has [facility] Call [facility] Phone number verified as correct. Jeanie ervin called & wanted to schedule a f/u from ER visit. 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 She didn't want patient to wait that long. She would like a call back to set something up sooner. This note was created by a V23 [facility] Call [facility] PADILLA/CLAUDETTE. Please do not alert this typewriter aligner by adding as a signer for future communications. Alerts are not monitored by this user, please reach out to [facility] Leadership instead if indicated. /angelita/ Ximena Seaman Visn [address] [facility] Signed: 07/28/2023 15:22 Receipt Acknowledged By: 07/29/2023 15:43 /angelita/ Ada Schneider MD Primary Care Staff Physician 07/29/2023 10:46 /angelita/ JEREMIAH MORALEZ DEAN OF STUDENT SERVICES 07/29/2023 ADDENDUM STATUS: COMPLETED Contacted Alf to scheduled Follow-up. fell and broke left elbow and needs an Ortho Consult. Offered [facility] appointment on Thursday. Staff is checking with family to see if they are available to drive [place] to appointment. Will await call back. /angelita/ JEREMIAH MORALEZ DEAN OF STUDENT SERVICES Signed: 07/29/2023 10:54 07/29/2023 ADDENDUM STATUS: COMPLETED scheduled into [facility] on July 29 at 10:30 AM to have left elbow assessed, pain management, and seeking Ortho Consult for follow- up. /angelita/ JEREMIAH MORALEZ RN BSN Signed: 07/29/2023 11:26 07/30/2023 ADDENDUM STATUS: COMPLETED xray report - mildly displaced intra-articular lateral column fracture in distal humerus (L elbow xray) 07/28/23 /angelita/ Ada Schneider MD Primary Care Staff Physician Signed: 07/30/2023 10:24 XIMENA SEAMAN [facility]
--- OUTSIDE RECORDS SUMMARY | 2023-07-31 16:08 | XMS_ITS | Encounter Summary ---
Author Name [facility] Organization Department of Vetera [facility] Address [address] [place] [address] Support Name Relationship Address Phone VICTORIA WALLER Next of [place], [place] MOLLY TAYLOR Emergency Contact [place], [place] Unavail able TIAGO NED [place], [place] [phone] Insurance Providers: All historical and current Section [...] PART A May 20, 2009 PART A [id number] KE ORDOÑEZ PATIENT Selected Encounter This section includes the information on record at [place] for the Encounter. Date/Time Encounter Type Encounter Description Reason Pro vider Source May 04, 2023 12:00 AM Outpatient Encounter EVENT (HISTORICAL) IHE Encounter Template Text not used by [place] Plan of Treatment: Future Appointments (+ 6 months) and Future Tests (+/- 45 days) The Plan of Treatment section includes future care activities for the patient from all [place] treatmentfacilities. This section includes future appointments and future orders which are active, pending or scheduled. Future Appointments This section includes appointments that were scheduled to occur 6 months from the date of the Encounter, up to a maximum of 20 appointments. The data comes from all [place] treatment facilities. Appointment Date/Time Appointment Type Appointme nt Facility Name May 05, 2023 08:30 AM AMBULATORY - SURGERY [facility] Jul 30, 2023 08:22 AM AMBULATORY - NONE [facility] Jul 30, 2023 10:30 AM AMBULATORY - MEDICINE [facility] Immunizations: All administered on the encounter date This section contains immunizations associated to the Encounter. Immunization Series Date Issued Reaction Comments COVID-19 (MODERNA), MRNA, LN P-S, PF, 50 MCG/0.5 ML (AGES 12+ YEARS) May 04, 2023 Social History: Smoking Status (Most current) and Tobacco Use (All prior to encounter date) This section includes the most current, and the historical, smoking and tobacco- related health factors from the [place] facility where the Encounter took place. Current Smoking Status This section includes the most current smoking, or tobacco-related health factor, from the [place] facility where the Encounter took place. Date/Time Current Smoking Status Comment Facil ity Jan 15, 2022 11:00 AM VA-TOBACCO FORMER USER [facility] Tobacco Use History This section includes a history of the smoking, or tobacco-related health factors, that were collected on or before the date of the Encounter. The data comes from the [place] facility where the Encounter took place. Date/Time Smoking Status/Tobacco Use Comment F acility Jan 15, 2022 11:00 AM VA-TOBACCO QUIT [address] [facility] December 14, 2020 01:30 PM VA-TOBACCO FORMER USER [facility] December 14, 2020 01:30 PM VA-TOBACCO QUIT 5 TO < [address] [facility] Aug 19, 2019 11:35 AM VA-TOBACCO FORMER USER [facility] Aug 19, 2019 11:35 AM VA-TOBACCO QUIT [address] [facility] Aug 27, 2018 11:54 AM VA-TOBACCO DOESNT USE WI [address] [facility] Aug 27, 2018 11:54 AM VA-TOBACCO USE [address] [facility] Aug 27, 2018 11:54 AM VA-TOBACCO USE ADVICE 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 Aug 27, 2018 11:54 AM VA-TOBACCO USE MED NO [facility] Aug 27, 2018 11:54 AM VA-TOBACCO USER SOME DAYS [facility] Dec 24, 2016 12:51 PM FORMER TOBACCO USER 7Y OR GREATE R [facility] Sep 12, 2015 09:12 AM FORMER TOBACCO USE >1Y <7Y [facility] Sep 05, 2014 10:04 AM LIFETIME NON-TOBACCO USER [facility] Aug 25, 2014 09:45 AM FORMER TOBACCO USE >1Y <7Y [facility] Aug 03, 2014 06:11 PM FORMER TOBACCO USER 7Y OR GRE[address] R [facility] Aug 03, 2014 02:50 PM LIFETIME NON-TOBACCO USER [facility] Aug 01, 2014 11:24 AM FORMER TOBACCO USE >1Y <7Y [facility] Mar 07, 2013 08:45 AM FORMER TOBACCO USE >1Y <7Y [facility] Oct 17, 2009 07:56 AM CURRENT TOBACCO USER [facility] Sep 01, 2006 09:04 AM CURRENT TOBACCO USER [facility] Sep 01, 2006 09:04 AM FORMER TOBACCO USER [address]Y OR GRE[address] R [facility] Advance Directives: All historical and current Section Date Range: From patient's date of to the date document was created. This section includes ALL of a patient's completed or amended [place] Advance and Rescinded Directives. The entries below indicate that a directive exists for the patient, but an actual copy is not included with this document. The data comes from all [place] facilities. Date Advance Directives Provider Source Sep 06, 2014 CLINICAL WARNING TOYIN COTA [facility] Aug 05, 2014 CLINICAL WARNING [facility] Aug 01, 2014 CLINICAL WARNING ALETA MAZARIEGOS [facility] Jul 28, 2007 ADVANCE DIRECTIVE CATY ADORNO [facility]
--- OUTSIDE RECORDS SUMMARY | 2023-07-31 16:08 | XMS_ITS | Encounter Summary ---
Author Name Department of [facility] Organization Department of [facility] Address [address] [place] [address] Support Name Relationship Address Phone VICTORIA WALLER Next of [place], [place] [phone] MOLLY TAYLOR Emergency Contact [place], [place] Unavail able AUGUSTIN [place]DOÑ[place] [address] Insurance Providers: All historical and current Section [...] PART A May 20, 2009 PART A [id number] KE ORDOÑEZ PATIENT Selected Encounter This section includes the information on record at [place] for the Encounter. Date/Time Encounter Type Encounter Description Reason Provider Source Jul 30, 2023 10:30 AM OFFICE O/P EST LOW 20 MIN PRIMARY CARE/MEDICINE ICD-10-CM S42.402A Unsp fracture of lower end of left humerus, init for clos fx PATI OLIVAS Encounter Template Text not used by [place] Assessments - Encounter Diagnoses This section includes the primary and secondary diagnoses documented for the Encounter. Date/Time Primary/Secondary Diagnosis Diagnosis Name Provider Source Jul 30, 2023 11:52 AM PRIMARY Unsp fracture of lower end of left humerus, init for clos fx [facility] Jul 30, 2023 11:52 AM SECONDARY Encounter for immunization [facility] Plan of Treatment: Future Appointments (+ 6 months) and Future Tests (+/- 45 days) The Plan of Treatment section includes future care activities for the patient [facility] all [facility] This section includes future appointments and future orders which are active, pending or scheduled. Active, Pending, and Scheduled Orders This section includes a listing of several types of active, pending, and scheduled orders, including clinic medications orders, diagnostic test orders, procedure orders and consult orders; where the start date of the order is 45 days before the date of the Encounter or 45 days after the date of theEncounter. The data comes from all [place] treatment facilities. Test Date/Time Test Type Test Details Facility Name Jul 30, 2023 11:56 AM Consult Order ORTHOPEDIC S OUTPT-FRACTURE Cons Plate Mounter's Choice [facility] Jul 31, 2023 12:00 AM Imaging - General Radiology Order ELBOW LEFT [address] [facility] Vital Signs: All taken on the encounter date This section contains inpatient and outpatient Vital Signs collected on the date of the Encounter. Date/Time Temperature Pulse Blood Pressure Respiratory Rate SP02 Pain Height Weight Body Mass Index Source Jul 30, 2023 10:27 AM 98.6 F 115 /min 127/85 mm[Hg] 18 /min 94 % 5 67 in 162.8 lb 26 [facility] Immunizations: All administered on the encounter date This section contains immunizations associated to the Encounter. Immunization Series Date Issued Reaction Comments PNEUMOCOCCAL POLYSACCHARIDE PPV23 Jul 30, 2023 Social History: Smoking Status (Most current) and Tobacco Use (All prior to encounter date) This section includes the most current, and the historical, smoking and tobacco- related health factors from the [place] facility where the Encounter took place. Current Smoking Status This section includes the most current smoking, or tobacco-related health factor, from the [place] facility where the Encounter took place. Date/Time Current Smoking Status Comment Katarina verma Jul 30, 2023 10:30 AM VA-TOBACCO FORMER USER [facility] Tobacco Use History This section includes a history of the smoking, or tobacco-related health factors, that were collected on or before the date of the Encounter. The data comes from the [place] facility where the Encounter took place. Date/Time Smoking Status/Tobacco Use Comment F aclamberto Jul 30, 2023 10:30 AM VA-TOBACCO QUIT 5 TO < [address] [facility] Jan 15, 2022 11:00 AM DE-TOBACCO FORMER USER [facility] Jan 15, 2022 11:00 AM DE-TOBACCO QUIT [address] 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 Aug 27, 2018 [...] ALL of a patient's completed or amended [place] Advance and Rescinded Directives. The entries below indicate that a directive exists for the patient, but an actual copy is not included with this document. The data comes from all [place] facilities. Date Advance Directives Provider Source Sep 06, 2014 CLINICAL WARNING TOYIN COTA [facility] Aug 05, 2014 CLINICAL WARNING ROEL MERCER IS [facility] Aug 01, 2014 CLINICAL WARNING ALETA MAZARIEGOS IS [facility] Jul 28, 2007 ADVANCE DIRECTIVE CATY ADORNO IS [facility] Encounter Notes: All associated encounter notes This section contains the clinical notes associated to the Encounter. Date/Time Encounter Note(s) Provider Source Jul 30, 2023 11:51 AM ACCOUNTING OF DISC LOSURES NOTE: LOCAL TITLE: STATE PRESCRIPTION DRUG MONITORING PROGRAM STANDARD TITLE: ACCOUNTING OF DISCLOSURES NOTE DATE OF NOTE: JUL 30, 2023@11:51:45 ENTRY DATE: JUL 30, 2023@11:51:45 AUTHOR: PATI OLIVAS EXP COSIGNER: URGENCY: STATUS: COMPLETED This PDMP query was submitted by Pati Olivas. The clinical justification for this PDMP query is to review controlled substances prescribed outside of the [place], and any additional information that may become available, as an important component of standard clinical care, and in accordance with [facility] policy. Patient information was shared with the PDMP Appriss Kamas. Prescription(s) filled outside the [place] in the last 90 days are noted. However, they do not raise significant safety concerns and do not influence the treatment plan at this time. fracture left elbow /es/ PATI OLIVAS PA-C PHYSICIAN SCHOOL PHOTOGRAPH EDITOR Signed: 07/30/2023 11:[address] [facility] Jul 30, 2023 11:35 AM INTERNAL MEDICINE NOTE: LOCAL TITLE: MEDICINE CLINIC NOTE STANDARD TITLE: INTERNAL MEDICINE NOTE DATE OF NOTE: JUL 30, 2023@11:35 ENTRY DATE: JUL 30, 2023@11:35:28 AUTHOR: PATI OLIVAS EXP COSIGNER: URGENCY: STATUS: COMPLETED Nurses noted reviewed. Patient seen today in [facility]. CC: left elbow fracture INFORMATION CLERK BROKERAGE NOTE 07/28 Bixby fell and broke left elbow and needs an Ortho Consult. Offered [place] appointment on Thursday. Staff is checking with family to see if they are available to drive to appointment. Will await call back. S: Maikel is a 78 year-old MALE who presents with facility administer (Linda) to [facility]. Confirms above history. Additionally, dc'd home with sling, hydrocodone/acetaminophen 5mg 1 tab q4-6H and cephalexin 500mg tid x 5 days, both of which he's been taking. Avg hydrocodone/acetaminophen 1-2 tabs/day. 12 Review of Systems completed and unremarkable unless otherwise noted in HPI. --- PMHx: Active problems - Computerized Problem List is the source for the followin. Mood disorder (SNOMED CT 73879506) 2. Hypertension (SNOMED CT 41944111) 3. Bipolar, Manic Full Rem 4. Idiopathic fecal incontinence 5. Chronic kidney disease stage 3 6. Diabetes Mellitus Type 2 (SCT 20935452) - prev dx. a1c >6.5 prev. now controlled ?(no med) 7. Diastolic heart failure Active Outpatient Medications (including Supplies): Active Outpatient Medications Status 1) ALLOPURINOL 100MG TAB TAKE ONE TABLET BY MOUTH EVERY ACTIVE DAY FOR GOUT PREVENTION 2) AMLODIPINE BESYLATE 5MG TAB TAKE ONE TABLET BY MOUTH ACTIVE AT BEDTIME FOR BLOOD PRESSURE 3) ATORVASTATIN CALCIUM 10MG TAB TAKE ONE TABLET BY ACTIVE MOUTH AT BEDTIME FOR CHOLESTEROL 4) BRIEF,TRANQUILITY YUNIOR OVERNITE MED#[id number] USE BRIEF ACTIVE DIRECTED 5) CYANOCOBALAMIN 1000MCG TAB TAKE ONE TABLET BY MOUTH ACTIVE EVERY DAY FOR VITAMIN B12 DEFICIENCY 6) EMPAGLIFLOZIN 25MG TAB TAKE ONE-HALF TABLET BY MOUTH ACTIVE EVERY MORNING FOR DIABETES AND KIDNEY. DRINK WATER THROUGHOUT DAY TO STAY HYDRATED. 7) FUROSEMIDE 20MG TAB TAKE ONE TABLET BY MOUTH EVERY ACTIVE DAY 8) LISINOPRIL 40MG TAB TAKE ONE TABLET BY MOUTH EVERY ACTIVE MORNING FOR HIGH BLOOD PRESSURE 9) MAGNESIUM OXIDE 420MG TAB TAKE ONE TABLET BY MOUTH ACTIVE EVERY DAY FOR MAGNESIUM DEFICIENCY Active Non-VA Medications Status 1) Non-VA ALLOPURINOL TAB 100MG [facility] ACTIVE AFFILIATED WITH [facility] [place] [phone] (F), (PHONE) 2) Non-VA NON VA MED NOT LISTED MISCELLANEOUS CALL IN ACTIVE MEDICATIONS TO [facility] [place] [phone] (F), (PHONE) 3) Non-VA [facility] MEDICATIONS MISCELLANEOUS PRN [facility] ACTIVE MEDS, ANTIACID, LOPERAMIDE, DIPHENHYDRAMINE PRN ALLERGIES, APAP, MILK OF MG, SENNA, COUGH SYRUP, A\T\D, PERICARE, VANICREAM 12 Total Medications Vitals: Temperature: 98.6 F [37.0 C] (07/30/2023 10:27) Blood Pressure: 127/85 (07/30/2023 10:27) Pulse: 115 (07/30/2023 10:27) Respiration: 18 (07/30/2023 10:27) PO2: 94% (07/30/2023 10:27) Pain: 5 (07/30/2023 10:27) BMI: 25.6 Wt: 162.8 lb [73.84 kg] (07/30/2023 10:27) EXAM: gen geriatric male in nad left arm in sling msk right hand edema, ROM fingers intact Diagnostics Imaging: xray report - mildly displaced intra-articular lateral column fracture in distal humerus (L elbow xray) 07/28/23 Labs: n/a A/P: # L elbow fracture - ortho fracture consult - pain meds x 3 days; mailed per pt preference # Medication Reconciliation Reviewed med list provided by pt's living residence. Meds match except facility has HCTZ 25mg daily, however, not on pt's [facility] med list, hasn't been rx'd by [facility] since 2019 and doesn't get medications from anywhere else. distribution center administrator (Linda) suspects patient isn't receiving medication and pharmacist forgot to d/c from list. She will verify and send PCP an update Return to clinic: as outlined above Total time of 30 minutes spent reviewing patient's records, assessing patient, and documenting in patient's chart. Medication Reconciliation: Education Evaluations *Was medication education provided for NEW medications or CHANGES to medications? (including medication name, dose, route, reason for use, and potential side effects). No new medications or medication changes during this encounter. Additional information: see A&P re: med rec for discrepency between [facility] med list and place of residence TERATOGENIC MED & CONTRACEPTION REVIEW (Optional)... ======= MEDICATION RECONCILIATION ======= Review Done: The medication list shown below was verified for accuracy and it includes all pending medications/active medications/all medications or discontinued within the last 90 days/all remote medications and non-VA medications. If a given category (i.e. remote meds) is not shown, that means that a patient doesn't have a medication(s) in that category. Allergies listed below were also reviewed/updated for accuracy. Allergies/ADR from [employer] may not display in CPRS. Use JLV MRT5 - Allergies/ADRs FACILITY ALLERGY/ADR -------- [facility] No Known Allergies [facility] NO KNOWN ALLERGIES Active and Recently Outpatient Medications (including Supplies): Issue Date Status Last Fill Active Outpatient Medications Refills Expiration 1) ALLOPURINOL 100MG TAB Qty: 90 for 90 ACTIVE Issu:10-14-22 days Sig: TAKE ONE TABLET BY MOUTH Refills: 1 Last:06-10-23 EVERY DAY FOR GOUT PREVENTION Expr:10-15-23 2) AMLODIPINE BESYLATE 5MG TAB Qty: 90 for ACTIVE Issu:10-15-22 90 days Sig: TAKE ONE TABLET BY MOUTH Refills: 0 Last:07-02-23 AT BEDTIME FOR BLOOD PRESSURE Expr:10-16-23 3) ATORVASTATIN CALCIUM 10MG TAB Qty: 90 ACTIVE Issu:10-15-22 for 90 days Sig: TAKE ONE TABLET BY Refills: 0 Last:07-02-23 MOUTH AT BEDTIME FOR CHOLESTEROL Expr:10-16-23 4) BRIEF,TRANQUILITY YUNIOR [facility] MED#[id number] ACTIVE Issu:05-15-23 Qty: 144 for 30 days Sig: USE BRIEF Refills: 11 Last:05-18-23 DIRECTED Expr:05-15-24 5) CYANOCOBALAMIN 1000MCG TAB Qty: 100 for ACTIVE Issu:10-14-22 90 days Sig: TAKE ONE TABLET BY MOUTH Refills: 1 Last:06-10-23 EVERY DAY FOR VITAMIN B12 DEFICIENCY Expr:10-15-23 6) EMPAGLIFLOZIN 25MG TAB Qty: 45 for 90 ACTIVE Issu:02-03-23 days Sig: TAKE ONE-HALF TABLET BY Refills: 2 Last:07-12-23 MOUTH EVERY MORNING FOR DIABETES AND Expr:02-04-24 KIDNEY. DRINK WATER THROUGHOUT DAY TO STAY HYDRATED. 7) FUROSEMIDE 20MG TAB Qty: 90 for 90 days ACTIVE Issu:10-14-22 Sig: TAKE ONE TABLET BY MOUTH EVERY Refills: 0 Last:07-22-23 DAY Expr:10-15-23 8) HYDROCODONE 5MG/ACETAMINOPHEN 325MG TAB ACTIVE Issu:07-30-23 Qty: 12 for 3 days Sig: TAKE 1 TABLET Refills: 0 Last:07-30-23 BY MOUTH EVERY 4 HOURS NEEDED FOR Expr:08-29-23 PAIN 9) LISINOPRIL 40MG TAB Qty: 90 for 90 days ACTIVE Issu:10-14-22 Sig: TAKE ONE TABLET BY MOUTH EVERY Refills: 1 Last:06-10-23 MORNING FOR HIGH BLOOD PRESSURE Expr:10-15-23 10) MAGNESIUM OXIDE 420MG TAB Qty: 100 for ACTIVE Issu:10-14-22 90 days Sig: TAKE ONE TABLET BY MOUTH Refills: 1 Last:06-10-23 EVERY DAY FOR MAGNESIUM DEFICIENCY Expr:10-15-23 Issue Date Status Last Fill Inactive Outpatient Medications Refills Expiration 1) AMLODIPINE BESYLATE 10MG TAB Qty: 45 DISCONTINUED Issu:10-14-22 for 90 days Sig: TAKE ONE-HALF TABLET (EDIT) Last:11-09-22 BY MOUTH AT BEDTIME FOR BLOOD PRESSURE Refills: 3 Expr:10-15-23 2) ATORVASTATIN CALCIUM 20MG TAB Qty: 45 DISCONTINUED Issu:10-14-22 for 90 days Sig: TAKE ONE-HALF TABLET (EDIT) Last:12-05-22 BY MOUTH AT BEDTIME FOR CHOLESTEROL Refills: 3 Expr:10-15-23 3) EMPAGLIFLOZIN 25MG TAB Qty: 45 for 90 DISCONTINUED Issu:05-07-22 days Sig: TAKE ONE-HALF TABLET BY Refills: 0 Last:01-23-23 MOUTH EVERY MORNING FOR DIABETES AND Expr:05-08-23 KIDNEY. DRINK WATER THROUGHOUT DAY TO STAY HYDRATED. 4) VANICREAM TOP CREAM Qty: 454 for 30 Issu:05-13-22 days Sig: APPLY THIN LAYER TOPICALLY Refills: 11 Last:05-14-22 EVERY DAY FOR DRY SKIN, IDEALLY WITHIN Expr:05-14-23 3 MINUTES AFTER BATH OR SHOWER. Start Date Active Non-VA Medications Refills Expiration 1) Non-VA ALLOPURINOL TAB SiMG ACTIVE [facility]FFIL[facility] WITH [facility] [phone] (F), (PHONE) 2) Non-VA NON VA MED NOT LISTED ACTIVE MISCELLANEOUS Sig: CALL IN MEDICATIONS TO [facility] [place] [phone] (F), (PHONE) 3) Non-VA [facility] MEDICATIONS ACTIVE MISCELLANEOUS Sig: PRN ANT MEDS, ANTIACID, LOPERAMIDE, DIPHENHYDRAMINE PRN ALLERGIES, APAP, MILK OF MG, SENNA, COUGH SYRUP, A\T\D, PERICARE, VANICREAM 17 Total Medications /es/ PATI OLIVAS PA-C PHYSICIAN SCHOOL PHOTOGRAPH EDITOR Signed: 07/30/2023 15:[address] [facility] Jul 30, 2023 10:28 AM INTERNAL MEDICINE OUTPATIENT NOTE: LOCAL TITLE: MEDICINE CLINIC NURSING NOTE STANDARD TITLE: INTERNAL MEDICINE OUTPATIENT NOTE DATE OF NOTE: JUL 30, 2023@10:28 ENTRY DATE: JUL 30, 2023@10:28:46 AUTHOR: KRISTA MOISE EXP COSIGNER: URGENCY: STATUS: COMPLETED MEDICINE CLINIC NURSING NOTE Has ADDENDA TYPE OF VISIT: Appointment Check In Type of appointment: In-person appointment REASON FOR VISIT: Left broken elbow ALLERGIES: Patient has answered NKA VITAL SIGNS: Blood Pressure: 127/85 (07/30/2023 10:27) Pulse: 115 (07/30/2023 10:27) Respiration: 18 (07/30/2023 10:27) Temperature: 98.6 F [37.0 C] (07/30/2023 10:27) Weight: 162.8 lb [73.84 kg] (07/30/2023 10:27) Height: 67 in [170.2 cm] (07/30/2023 10:27) BMI: 25.6 O2 Sat: 94% (07/30/2023 10:27) Pain: 5 (07/30/2023 10:27) PAIN SCREEN: Patient is having significant pain that they would like to talk to their provider about today. Acute pain is new pain, which as been present for less than 6 months Words used to describe pain: dull, achy Number that best describes pain intensity on average in the past week: 7 Pain located in the following location(s): arms Left elbow Pain has been happening for: less than one week Pain is worse when: other: Movement Pain is better when: medication Nursing Annual Screening: Fall History Screen During the past 12 months, have you had any falls? Patient reports one fall with injury requiring treatment in the past 12 months. MEDICATIONS: Patient is on one of the following medication classes: Antihypertensives, Antidepressants, Antipsychotics, Diuretics, or Controlled substance medication used for pain. FALL RISK ADVICE: Fall Risk Advice provided. Handout entitled Fall Prevention At Home reviewed and given to patient and/or significant other. Comment: Tripped walking out of the grocery store on 07/28/23 Patient instructed to discuss fall risk with provider. Script Talk Screen Are you able to read your prescription bottles with your glasses, magnifiers or other aids? Yes or patient not taking any prescriptions. Skin Screen Patient reports any current pressure ulcers, a history of pressure ulcers, or a wound from a medical research scientist or Patient is bed-confined or a wheelchair-user or Patient requires assistance to transfer/change position No, Skin Screen is Negative Home Abuse/Violence Screen Is your home free of abuse and violence? Yes MOVE! Program Screen Body Mass Index (BMI)= 25.6 Rentz: Collection DT Specimen Test Name Result Units Ref Range 09/25/2022 12:33 BLOOD !! HEMOGLOBIN A1C 5.5 % 4.0 - 6.0 !! Indicates COMMENTS AVAILABLE...Refer to Interim Lab Report. Daniele Huangs Hgb A1C: No data available [place] Hgb A1C: No data available Point of Care Hgb A1C: POC HGB A1C____ Outpatient Nutrition Screen Body Mass Index (BMI)= 25.6 Rentz: Collection DT Specimen Test Name Result Units Ref Range 09/25/2022 12:33 BLOOD !! HEMOGLOBIN A1C 5.5 % 4.0 - 6.0 !! Indicates COMMENTS AVAILABLE...Refer to Interim Lab Report. Daniele Ports Hgb A1C: No data available [place] Hgb A1C: No data available Point of Care Hgb A1C: POC HGB A1C____ Is patient's BMI less than 18.5? No Does patient have swallowing, coughing, or chewing problems affecting oral intake? No Has patient experienced unplanned weight loss or gain greater than 10 pounds over the last 2 months? No Is patient's Hgb A1C (Glycosylated Hemoglobin) greater than 9.5? Information not available Is patient receiving Total Parenteral Nutrition (TPN) or Tube Feedings? No Patient Health Education Screen BARRIERS/SPECIAL NEEDS: Physical limitations Visual limitations PREFERRED STYLE OF LEARNING: No preference stated Client Assistive Service (PAM) Screen Does the patient require assistance with outpatient visit? No Homelessness/Food Insecurity Screen: In the past 2 months, have you been living in stable housing that you own, rent, or stay in as part of a household? Yes - Living in stable housing. Are you worried or concerned that in the next 2 months you may NOT have stable housing that you own, rent, or stay in as part of a household? No - Not worried about housing near future The reports the following: Within the past 12 months, you worried whether your food would run out before you got money to buy more. Never true Within the past 12 months, the food you bought just didn't last and you didn't have money to get more. Never true Food Insecurity Resources Alcohol Use Screen (AUDIT-C): Alcohol Screen: SCREEN FOR ALCOHOL (AUDIT-C) An alcohol screening test (AUDIT-C) was negative (score=0). 1. How often did you have a drink containing alcohol in the past year? Never 2. How many drinks containing alcohol did you have on a typical day when you were drinking in the past year? Response not required due to responses to other questions. 3. How often did you have six or more drinks on one occasion in the past year? Response not required due to responses to other questions. Tobacco Use Screening: The patient is a former tobacco user. The patient quit five to less than fifteen years ago. Depression Screening: Perform PHQ-2 A PHQ-2 screen was performed. The score was 0 which is a negative screen for depression. Over the past two weeks, how often have you been bothered by the following problems? 1. Little interest or pleasure in doing things Not at all 2. Feeling down, depressed, or hopeless Not at all PTSD Screening: PC-PTSD-5 A PTSD screening test (PC-PTSD-5) was negative (score=0). IN THE PAST MONTH, have you ever had any experience that was so frightening, horrible or traumatic. For example: A serious accident or fire a physical or sexual assault or abuse An earthquake or flood A war Seeing someone be killed or seriously injured Having a loved one through homicide or suicide Have you ever experienced this kind of event? NO 1. Had nightmares about the event(s) or thought about the event(s) when you did not want to? Response not required due to responses to other questions. 2. Tried hard not to think about the event(s) or went out of your way to avoid situations that reminded you of the event(s)? Response not required due to responses to other questions. 3. Been constantly on guard, watchful, or easily startled? Response not required due to responses to other questions. 4. Daphne numb or detached from people, activities, or your surroundings? Response not required due to responses to other questions. 5. Daphne guilty or unable to stop blaming yourself or others for the event(s) or any problems the event(s) may have caused? Response not required due to responses to other questions. Influenza Immunization: The patient declines to receive the recommended dose of seasonal influenza vaccine. Immunization: INFLUENZA, UNSPECIFIED FORMULATION Refusal Reason: PATIENT DECISION Patient refuses all immunization(s) in the FLU group Date Documented: 07/30/23 10:40 /angelita/ KRISTA ORTEGA Signed: 07/30/2023 10:42 07/30/2023 ADDENDUM STATUS: COMPLETED Pneumococcal PPSV23 (Pneumovax): Administered: PNEUMOCOCCAL POLYSACCHARIDE PPV23 Date Administered: Jul 30, 2023 10:30 Quality Assurance Supervisor Trim: [employer] Lot: [id number] Exp Date: Mar 02, 2025 [facility]: [phone] Admin Route/Site: INTRAMUSCULAR/RIGHT DELTOID Dosage: 0.5mL Vaccine Information Statement(s): PPSV23 VIS May 18, 2019 ([place]) Order By: Policy Administered By: Cordelia Duke Vaccine Information Sheet (VIS) was given to the patient/caregiver, education regarding adverse reactions was discussed, as well as barriers to learning, if any, were acknowledged. /angelita/ CORDELIA DUKE LPN, LPN Signed: 07/30/2023 12:20 KRISTA MOISE [facility]
--- OUTSIDE RECORDS SUMMARY | 2023-07-31 16:08 | XMS_ITS | Encounter Summary ---
Author Name [employer] [facility] [employer] Organization [facility] Address [address] [place] [address] Support Name Relationship Address Phone VICTORIA WALLER Next [place], [place] Emergency Contact [place], [place] Unavail able [place] [address] Insurance Providers: All historical and current Section [...] PART A May 20, 2009 PART A [id number] KE ORDOÑEZ PATIENT Selected Encounter This section includes the information on record at MA for the Encounter. Date/Time Encounter Type Encounter Description Reason Provider Source Jul 30, 2023 08:22 AM Outpatient Encounter ADMIN PAT ACTIVTIES (MASNONCT) KRISTINE ARAYA Encounter Template Text not used by MA Plan of Treatment: Future Appointments (+ 6 months) and Future Tests (+/- 45 days) The Plan of Treatment section includes future care activities for the patient from all [place] treatmentfacilities. This section includes future appointments and [...] of theEncounter. The data comes from all [place] treatment facilities. Test Date/Time Test Type Test Details Facility Name Jul 30, 2023 11:56 AM Consult Order ORTHOPEDIC S OUTPT-FRACTURE Cons Maintenance Person's Choice [facility] Jul 31, 2023 12:00 AM Imaging - General Radiology Order ELBOW LEFT 2 VIEWS LEFT [facility] Vital Signs: All taken on the encounter date This section contains inpatient and outpatient Vital Signs collected on the date of the Encounter. Date/Time Temperature Pulse Blood Pressure Respiratory Rate SP02 Pain Height Weight Body Mass Index Source Jul 30, 2023 10:27 AM 98.6 F 115 /min 127/85 mm[Hg] 18 /min 94 % [address] [facility] Social History: Smoking Status (Most current) and Tobacco Use (All prior to encounter date) This section includes the most current, and the historical, smoking and tobacco- related health factors from the [place] facility where the Encounter took place. Current Smoking Status This section includes the most current smoking, or tobacco-related health factor, from the [place] facility where the Encounter took place. Date/Time Current Smoking Status Comment Katarina verma Jul 30, 2023 10:30 AM VA-TOBACCO FORMER USER [facility] Tobacco Use History This section includes a history of the smoking, or tobacco-related health factors, that were collected on or before the date of the Encounter. The data comes from the [place] facility where the Encounter took place. Date/Time Smoking Status/Tobacco Use Comment F aclamberto Jul 30, 2023 10:30 AM VA-TOBACCO QUIT 5 TO < 15 YRS [facility] Jan 15, 2022 11:00 AM VA-TOBACCO FORMER USER [facility] Jan 15, 2022 11:00 AM VA-TOBACCO QUIT [...] Aug 27, 2018 11:54 AM VA-TOBACCO USE BIOINFORMATICIAN NO [facility] Aug 27, 2018 [...] ALL of a patient's completed or amended [place] Advance and Rescinded Directives. The entries below indicate that a directive exists for the patient, but an actual copy is not included with this document. The data comes from all [place] facilities. Date Advance Directives Provider Source Sep 06, 2014 CLINICAL WARNING TOYIN COTA LIS [facility] Aug 05, 2014 CLINICAL WARNING ROEL MERCER IS [facility] Aug 01, 2014 CLINICAL WARNING ALETA MAZARIEGOS IS [facility] Jul 28, 2007 ADVANCE DIRECTIVE CATY AODRNO IS [facility] Encounter Notes: All associated encounter notes This section contains the clinical notes associated to the Encounter. Date/Time Encounter Note(s) Provider Source Jul 30, 2023 10:17 AM ADDENDUM: LOCAL TITLE: Addendum STANDARD TITLE: ADDENDUM DATE OF NOTE: JUL 30, 2023@10:17:32 ENTRY DATE: JUL 30, 2023@10:17:33 AUTHOR: KRISTINE ARAYA COSIGNER: URGENCY: STATUS: COMPLETED Records have been requested for this episode of care. Alerting PACT RN for awareness. /angelita/ Kristine Araya BREAKER MACHINE TENDER grommet man Hearing Screener Signed: 07/30/2023 10:17 Receipt Acknowledged By: 07/30/2023 10:34 /es/ JEREMIAH STERLING --- Original Document --- 07/28/23 COMMUNITY CARE-[facility]IS SELF PRESENTING CARE COORD PLAN NOTE: Emergency Notification Intake Date Presenting to the Facility: Jul Method of Contact: Notified from [employer] worklist Notification ID: [id number] HSRM [facility] [facility] [place], Address: City: [place], State: [place] Zip Code: Phone : [facility] Point of Contact: Name: Beverly Martinez RN Chief complaint: Left Elbow Fx (U51.825T) Primary Diagnosis: Disposition Discharged Date of discharge: Jul Discharge to home 1703 Clinical Review /angelita/ ALEXX VARGAS ASSISTANCE REPRESENTATIVE Signed: 07/30/2023 08:30 Receipt Acknowledged By: * AWAITING SIGNATURE * SHIREEN MURRAY 07/30/2023 10:17 /angelita/ Kristine Araya BREAKER MACHINE TENDER grommet man Hearing Screener KRISTINE ARAYA [facility] Jul 28, 2023 01:20 PM NONVA NOTE: LOCAL TITLE: COMMUNITY CARE-LUIS SELF PRESENTING CARE COORD PLAN STANDARD TITLE: NONVA NOTE DATE OF NOTE: JUL 28, 2023@13:20 ENTRY DATE: JUL 30, 2023@08:24:17 AUTHOR: ALEXX VARGAS EXP COSIGNER: URGENCY: STATUS: COMPLETED COMMUNITY CARE-LUIS SELF PRESENTING CARE COORD PLAN NOTE Has ADDENDA Emergency Notification Intake Date Presenting to the Facility: Jul Method of Contact: Notified from [employer] worklist Notification ID: [id number] HSRM [facility], Address: City: [place], State: [place] Zip Code: Phone : [facility] Point of Contact: Name: Beevrlykitty Martinez RN Chief complaint: Left Elbow Fx ([id number]) Primary Diagnosis: Disposition Discharged Date of discharge: Jul Discharge to home 1703 Clinical Review /es/ ALEXX VARGAS ASSISTANCE REPRESENTATIVE Signed: 07/30/2023 08:30 Receipt Acknowledged By: 07/30/2023 13:24 /es/ SHIREEN MORGNAH ...Advanced Motor Generator Set Operator 07/30/2023 10:17 /es/ Kristine Araya BREAKER MACHINE TENDER grommet man Hearing Screener 07/30/2023 ADDENDUM STATUS: COMPLETED Records have been requested for this episode of care. Alerting PACT RN for awareness. /angelita/ Kristine Araya BREAKER MACHINE TENDER grommet man Hearing Screener Signed: 07/30/2023 10:17 Receipt Acknowledged By: 07/30/2023 10:34 /es/ ALEXX GUILLEN RN [facility]
== END 2023-07-28 12:04 | disposition home or self-care (01) ==
LOC: AMB 07-31 16:01
PROVIDERS: PCP Internal Medicine; Visit Provider Emergency Medicine
DX: S55.90 Unspecified injury of unspecified blood vessel at forearm level (principal); W18.40XA Slipping, tripping and stumbling without falling, unspecified, initial encounter; Y92.512 Supermarket, store or market as the place of occurrence of the external cause
CPT/HCPCS: A0425; A0427

== ENCOUNTER 2023-07-28 12:28 | Emergency (ER) | payer OTHER, SELFPAY ==
[2023-07-28 12:38] VITALS: BP 108/69; PULSE 58; RESP 18; TEMP 36.8; O2SAT 92; BMI 25.1
--- NOTE | 2023-07-28 12:50 | CRLHL7_ITS ---
For Patients: As a result of the Century Cures Act, medical imaging exams and procedure reports are released immediately into your electronic medical record. You may view this report before your referring provider. If you have questions, please contact your health care provider. Indication: Injury. Technique: Three views of the left elbow. Comparison: None available. Findings: There is a mildly displaced obliquely oriented fracture intra-articular fracture involving the lateral column of the distal humerus extending from the lateral aspect of the distal humeral metaphysis to the junction of the capitellum and trochlea. There is a small elbow joint effusion. No definite transverse component the fracture. Mild degenerative changes of the radial capitellar joint without definite fracture visualized. Impression: Mildly displaced intra-articular lateral column fracture the distal humerus. Dictated by Marilou Jeffers MD @ 07/28/2023 1:44:42 PM (Electronically Signed)
--- NOTE | 2023-07-28 12:50 | ED.GENADULT ---
HPI - General Adult General Chief complaint: Fall/Minor Trauma Stated complaint: Elbow pain Time Seen by Provider: 07/28/23 12:39 History of Present Illness HPI narrative: This 78-year-old male is a resident at [facility] and was walking when he misstepped off of a curb and fell onto his left elbow. He does not report any other injury. He has an abrasion over his left elbow and states that it hurts to move it. He did not hit his head or have loss of consciousness. Related Data Previous Rx's Medication Instructions Recorded cephalexin 500 mg capsule 500 mg PO TID 5 days #15 caps 07/28/23 hydrocodone 5 mg-acetaminophen 325 1 tab PO Q4-6H PRN pain #15 tabs 07/28/23 mg tablet Allergies Allergy/AdvReac Type Severity Reaction Status Date / Time No Known Drug Allergies Allergy Verified 07/28/23 12:38 Review of Systems Status of ROS: Reports: 10 or more systems reviewed and unremarkable except as noted in History and below Narrative: Constitutional: No fevers, no weight gain or loss. Eyes: No discharge. No vision changes. HENT: No congestion, no sore throat, no ear pain. Cardiovascular: No chest pain, no palpitations. Respiratory: No shortness of breath, no wheezes, no cough. Gastrointestinal: No abdominal pain, no vomiting, no diarrhea. Genitourinary: No dysuria, no hematuria. Musculoskeletal: Left elbow injury as described above with painful and decreased range of motion. Skin: No rashes, no pruritis. Neurological: No dizziness, weakness, sensory change, speech change. Endo/Heme/Allergies: No bruising or bleeding. No polydipsia. Pysch: no suicidality, no anxiety, no insomnia. All other systems reviewed and are negative. PFSH PFS Social History Smoking Status: Never smoker Do you use any of these nicotine containing products: None Second hand tobacco smoke exposure: No How often do you have a drink containing alcohol: never How often do you have six or more drinks on one occasion: Never AUDIT-C Alcohol total score: 0 Non-prescribed substance use: denies use service: No Exam Narrative: Exam Narrative: Constitutional: Well-developed, well-nourished, no acute distress. HEENT: Normocephalic, atraumatic. Neck: Normal range of motion. Nontender. Supple. Heart: Intact distal pulses. Lungs: No chest discomfort. No wheezes, rhonchi, or rales. Abdomen: Nontender. Back: Normal range of motion. Extremities: Superficial abrasion over the left elbow with mild swelling. Range of motion is decreased due to pain. Skin: Intact. No rash. Warm. No erythema or pallor. Neurologic: No altered sensation. No weakness. Alert and oriented. Psychiatric: No suicidality. No anxiety or depression. No insomnia. Nursing notes and vitals signs are reviewed. Const: Vital Signs, click to edit/add: Vital Signs - 24 hr 07/28/23 12:38 Temperature 98.2 F Pulse Rate [Pulse Oximeter] 58 L Respiratory Rate 18 Blood Pressure [Ri ght Upper Arm] 108/69 Pulse Oximetry 92 Oxygen Delivery Me thod Room Air Course Vital Signs Vital signs: Initial Vital Signs Temperature 98.2 F 07/28/23 12:38 Temperature Source Temporal Artery Scan 07/28/23 12:38 Pulse Rate 58 L 07/28/23 12:38 Respiratory Rate 18 07/28/23 12:38 Blood Pressure 108/69 07/28/23 12:38 Blood Pressure Mean 82 07/28/23 12:38 Pulse Oximetry 92 07/28/23 12:38 Oxygen Delivery Method Room Air 07/28/23 12:38 Vital Signs Temperature 98.2 F 07/28/23 12:38 Pulse Rate 58 L 07/28/23 12:38 Respiratory Rate 18 07/28/23 12:38 Blood Pressure 108/69 07/28/23 12:38 Pulse Oximetry 92 07/28/23 12:38 Oxygen Delivery Method Room Air 07/28/23 12:38 Temperature 98.2 F 07/28/23 12:38 Pulse Rate 58 L 07/28/23 12:38 Respiratory Rate 18 07/28/23 12:38 Blood Pressure 108/69 07/28/23 12:38 Pulse Oximetry 92 07/28/23 12:38 Oxygen Delivery Method Room Air 07/28/23 12:38 Medical Decision Making MDM Narrative Medical decision making narrative: This patient comes in with an injury to his left elbow. X-ray images show evidence of a minimally displaced fracture of the elbow. The patient has a superficial abrasion over the external surface of the elbow which was cleansed and covered with a bandage. The patient was placed in a posterior splint using Ortho Glass material. He also received a sling. I did prescribe a few days of an antibiotic and some pain medicine. He is instructed to follow-up with orthopedic clinic for ongoing management. Imaging Data XR L Elbow: Radiologist's impression: There is a mildly displaced obliquely oriented fracture intra-articular fracture involving the lateral column of the distal humerus extending from the lateral aspect of the distal humeral metaphysis to the junction of the capitellum and trochlea. There is a small elbow joint effusion. No definite transverse component the fracture. Mild degenerative changes of the radial capitellar joint without definite fracture visualized. Discharge Plan Discharge Clinical Impression: Elbow fracture, left Patient Disposition: Home w/ Parent or Adult Condition: Stable Additional Instructions: Wear splint and sling and follow-up with orthopedic clinic. Call [phone] for appointment. Take medication as needed and directed. Prescriptions: New hydrocodone-acetaminophen 5-325 mg tablet 1 tab PO Q4-6H PRN (Reason: pain) Qty: 15 0RF cephalexin 500 mg capsule 500 mg PO TID 5 Days Qty: 15 0RF Follow Up/Referrals: Ada Schneider MD [Primary Care Provider] - Stand Alone Forms: [employer] Info Instructions
--- NOTE | 2023-07-28 13:01 | ED.NURSE ---
Assumed care of pt at 1300. Report received from previous nurse.
--- NOTE | 2023-07-28 14:12 | ED.NURSE ---
Pt's family would like medication sent [facility] Wyatt Quevedo called and scripts cancelled. MD aware of change and sending scripts to [facility]. [facility] machine out of pain medication and pt's family verbalizes they will just [employer] pain medication at [facility]. IV d/c, catheter intact. D/c instructions given, pt and family verbalize understanding of all instructions and deny further questions.
--- NOTE | 2023-07-28 14:40 | ED.NURSE ---
Nancy RN at [facility] [facility] updated on pt's discharge instructions. She had no questions at this time. She will arrange with family for ortho follow up. All questions answered.
== END 2023-07-28 14:18 | disposition home or self-care (01) ==
PROVIDERS: Emergency Provider Emergency Medicine Emergency Medical Services; PCP Internal Medicine
DX: S42.202A Unspecified fracture of upper end of left humerus, initial encounter for closed fracture (principal); W01.0XXA Fall on same level from slipping, tripping and stumbling without subsequent striking against object, initial encounter
CPT/HCPCS: 29105; 73080; 99283; 99284

== ENCOUNTER 2024-09-20 06:58 | Outpatient (CLI) | payer OTHER, SELFPAY | END 2024-09-20 06:59 | disposition home or self-care (01) | LOC: US 06:59 | PROVIDERS: PCP Internal Medicine; Visit Provider Internal Medicine Nephrology | DX: N18.32 Chronic kidney disease, stage 3b (principal); N20.0 Calculus of kidney | CPT/HCPCS: 76770 ==

== ENCOUNTER 2024-10-05 13:11 | Emergency (ER) | payer OTHER, SELFPAY ==
[2024-10-05 13:13] VITALS: BP 150/79; PULSE 84; RESP 16; TEMP 36.4; O2SAT 97; BMI 24.4
--- OUTSIDE RECORDS SUMMARY | 2024-10-05 13:13 | XMS_ITS | CCD ---
Author Name Chana Tirado Address [address] [place] [address] Phone Organization [facility] Phone Care Team Providers Care Cabin Service Agent Name Role Phone Iain Tirado Primary Care Provider Sofia vailable Unavailable Chronic Care Management Unavaila ble Summary Purpose DataExchange Insurance Providers Payer name Policy type / Coverage type Covered libertarian ID Effective Begin Date Effective End Date [facility] Administration Plan [id number] Unknown Unknown Family History Family History data not found Allergies, Adverse Reactions, Alerts Substance Reaction Codes Entered Date Inactivated Date Status NO KNOWN DRUG ALLERGIES Unknown 12/04/2023 No In active Date Active Problems Condition Codes Effective Dates Condition St atus Diabetes Unknown 12/23/2023 Active Diabetes mellitus Type 2 Unknown 12/23/2023 Act misha Bipolar 1 disorder, manic, f ull remission ICD-10: F31.74 ICD-9: 296.46 12/23/2023 Active Chronic diastolic congestive heart failure ICD-10: I50.32 ICD-9: 428.32 12/23/2023 Active Chronic kidney disease, stag e 3 unspecified ICD-10: N18.30 12/23/2023 Active Gout ICD-10: M10.9 ICD-9: 274.9 12/23/2023 Active Mood disorder ICD-10: F39 ICD-9: 296.90 12/23/2023 Active 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 ICD-10: E11.51 ICD-9: 250.70 12/23/2023 Active Type 2 diabetes mellitus wit h stage 3 chronic kidney disease, without long-term current use of insulin, unspecified whether stage 3a or 3b CKD ICD-10: E11.22 ICD-9: 250.40 12/23/2023 Active Type 2 diabetes mellitus wit h diabetic neuropathy, without long-term current use of insulin ICD-10: E11.40 ICD-9: 250.60 12/23/2023 Active Medications Medication Codes Instructions Start Date Stop Date Status Fill Instructions hydrocodone 5 mg-acetaminophen 325 mg tablet RxNorm: 108237 Take 1 Tablet(s) Oral Q4-6H every 4-6 hours 4 025 Inactive Jardiance 25 mg tablet RxNorm: 2785572 Take 1/2 Tablet(s) Oral QD 4 No Stop Date Active lisinopril 40 mg tablet RxNorm: 235210 Take 1 Tablet(s) Oral QD 4 No Stop Date Active Tussin Cough (DM only) 15 mg/5 mL oral liquid RxNorm: 6898952 Take 5-10 Milliliter(s) Oral Q4-6H every 4-6 hours as needed 4 No Stop Date Active A and D (alirio, pet) topical ointment RxNorm: Take 1 Gram(s) Topical QD 4 No Stop Date Active Milk of Magnesia 400 mg/5 mL oral suspension RxNorm: 905121 Take 15-30 Milliliter(s) Oral QD as needed 4 No Stop Date Active amlodipine 10 mg tablet RxNorm: 491531 Take 1/2 Tablet(s) Oral QD 4 No Stop Date Active allopurinol 100 mg tablet RxNorm: 207109 Take 1 Tablet(s) Oral QD 4 No Stop Date Active cyanocobalamin (vit B-12) 1,000 mcg tablet RxNorm: 520059 Take 1 Tablet(s) Oral QD 4 No Stop Date Active atorvastatin 20 mg tablet RxNorm: 424136 Take 1 Tablet(s) Oral QD 4 No Stop Date Active acetaminophen 325 mg tablet RxNorm: 802927 Take 1-2 Tablet(s) Oral Q4-6H every 4-6 hours as needed 4 No Stop Date Active loperamide 2 mg tablet RxNorm: 276020 Take 1 Tablet(s) Oral QD as needed 4 No Stop Date Active magnesium oxide 420 mg tablet RxNorm: 748267 Take 1 Tablet(s) Oral QD 4 No Stop Date Active Antacid 200 mg-200 mg-20 mg/5 mL oral suspension RxNorm: 571703 Take 5-10 Milliliter(s) Oral QD as needed 4 No Stop Date Active diclofenac 1 % topical gel RxNorm: 935936 Apply 4 Gram(s) Topical QID 4 No Stop Date Active Senna-S 8.6 mg-50 mg tablet RxNorm: 923842 Take 1 Tablet(s) Oral QD as needed 4 No Stop Date Active furosemide 20 mg tablet RxNorm: 398882 Take 1 Tablet(s) Oral QD 4 No Stop Date Active Antacid 200 mg (as calcium carboante 500 mg) chewable tablet RxNorm: 838795 Take 1 Tablet(s) Oral QD 4 No Stop Date Active Medication Administered No Medication Administered data Results Observation Observation Code Item Item Code Result Date Service Location Vitamin D, 25-Hydroxy VITAD25 Vitamin D, 25-Hydroxy 32593-1 9 ng/mL 12/26/19 24 Unknown Lipid Panel (LP) LIPIDPAN CHOLESTEROL, TOTAL 57618-8 154 mg/dL 12/26/19 24 Unknown Lipid Panel (LP) LIPIDPAN HDL CHOLESTEROL 2085-9 26.1 mg /dL 12/26/19 24 Unknown Lipid Panel (LP) LIPIDPAN LDL CHOLESTEROL CALCULATED 32261-9 69 12/26/19 24 Unknown Lipid Panel (LP) LIPIDPAN TRIGLYCERIDES 2571-8 294 mg/dL 12/26/19 24 Unknown Lipid Panel (LP) LIPIDPAN VLDL Cholestero l Calculated 59 12/26/19 24 Unknown Vitamin B12 VITAB12 Vitamin B12 2132-9 412 pg/mL 24 Unknown CBC with Differential / Platelets CBCDIFF Baso (Absolute) 0.05 x10E3/uL 12/26/19 24 Unknown CBC with Differential / Platelets CBCDIFF Basos 0.70 % 12/26/19 24 Unknown CBC with Differential / Platelets CBCDIFF Eos 3.4 % 12/26/19 24 Unknown CBC with Differential / Platelets CBCDIFF Eos (Absolute) 0.26 x10E3/uL 12/26/19 24 Unknown CBC with Differential / Platelets CBCDIFF Hematocrit 4544-3 46.8 % 12/26/19 24 Unknown CBC with Differential / Platelets CBCDIFF Hemoglobin 718-7 14.6 g/dL 12/26/19 24 Unknown CBC with Differential / Platelets CBCDIFF LYMPHOCYTES 25.0 % 12/26/19 24 Unknown CBC with Differential / Platelets CBCDIFF Lymphocytes (Absolute) 1.89 x10E3/uL 12/26/19 24 Unknown CBC with Differential / Platelets CBCDIFF MCH 31.2 pg 12/26/19 24 Unknown CBC with Differential / Platelets CBCDIFF MCHC 31.2 g/dL 12/26/19 24 Unknown CBC with Differential / Platelets CBCDIFF MCV 787-2 100.0 % 12/26/19 24 Unknown CBC with Differential / Platelets CBCDIFF Monocytes 8.2 % 12/26/19 24 Unknown CBC with Differential / Platelets CBCDIFF Monocytes (Absolute) 0.62 x10E3/uL 12/26/19 24 Unknown CBC with Differential / Platelets CBCDIFF MPV 24330-1 11.2 fL 12/26/19 24 Unknown CBC with Differential / Platelets CBCDIFF Neutrophils 62.30 % 12/26/19 24 Unknown CBC with Differential / Platelets CBCDIFF Neutrophils (Absolute) 4.71 x10E3/uL 12/26/19 24 Unknown CBC with Differential / Platelets CBCDIFF Platelets 777-3 241 x10E3/uL 12/26/19 24 Unknown CBC with Differential / Platelets CBCDIFF RBC 4.68 x10^6/UL 12/26/19 24 Unknown CBC with Differential / Platelets CBCDIFF RDW 15.4 %binding 12/26/19 24 Unknown CBC with Differential / Platelets CBCDIFF WBC 6690-2 7.56 x10E3/uL 12/26/19 24 Unknown TSH TSH TSH 80528-0 3.19 uIU/mL 12/26/19 24 Unknown Hemoglobin A1c HEMOGLOBA Hemoglobin A1c 78263-8 5.6 %A1c 12/26/19 24 Unknown Basic Metabolic Panel (BMP) BMP Blood Urea Nitrogen (BUN) 19 mg/dL 12/26/19 24 Unknown Basic Metabolic Panel (BMP) BMP BUN/CREATININE RATIO 10.73 ratio 12/26/19 24 Unknown Basic Metabolic Panel (BMP) BMP Calcium (Ca) 65772-7 9.1 mg/dL 12/26/19 24 Unknown Basic Metabolic Panel (BMP) BMP Carbon Dioxide (ECO2) 24 mmol/L 12/26/19 24 Unknown Basic Metabolic Panel (BMP) BMP Chloride (Cl) 2075-0 108 mmol/L 12/26/19 24 Unknown Basic Metabolic Panel (BMP) BMP Creatinine 2160-0 1.77 mg/dL 12/26/19 24 Unknown Basic Metabolic Panel (BMP) BMP eGFR 38.59 mL/min/1.7 3m2 12/26/19 24 Unknown Basic Metabolic Panel (BMP) BMP Glucose 94 mg/dL 12/26/19 24 Unknown Basic Metabolic Panel (BMP) BMP Potassium (K) 2823-3 3.7 mmol/L 12/26/19 24 Unknown Basic Metabolic Panel (BMP) BMP Sodium (Na) 2951-2 142 mmol/L 12/26/19 24 Unknown Magnesium MAGNES MAGNESIUM 53003-5 1.9 mg/dL 12/26/19 24 Unknown PDFReport PDFReport PDFReport 12/25/19 24 Unknown PDFReport PDFReport PDFReport 12/25/19 24 Unknown PDFReport PDFReport PDFReport 12/25/19 24 Unknown PDFReport PDFReport PDFReport 12/25/19 24 Unknown Procedures Procedure Codes Date SYST BP LT 130 MM HG CPT-4: 3074F 12/23/2023 DIAST BP <80 MM HG CPT-4: 3078F 12/23/2023 Vital Signs Date Vital 12/23/2023 Blood Pressure 1: 119/78 Code: 8480-6 BMI: NaN Code: 71450-0 Heart Rate 1: 74 bpm Code: 8867-4 Height: 5'7 Code: 8302-2 SpO2: 98% Temperature: 36.1 (C) / 97.0 (F) Weight: 162 lbs Code: 3141-9 Reason For Visit No Reason For Visit data Encounters Encounter Performer Location Location Address Codes Date ([address]) Home or Residence Visit MARKET RESEARCH SPECIALIST - [place], 75 mins Diagnosis: Type 2 diabetes mellitus with diabetic neuropathy, without long-term current use of insulin[ICD10: E11.40] Diagnosis: Type 2 diabetes mellitus with stage 3 chronic kidney disease, without long-term current use of insulin, unspecified whether stage 3a or 3b CKD[ICD10: E11.22] Diagnosis: Chronic kidney disease, stage 3 unspecified[ICD10: N18.30] Diagnosis: 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[ICD10: E11.51] Diagnosis: Gout[ICD10: M10.9] Diagnosis: Chronic diastolic congestive heart failure[ICD10: I50.32] Diagnosis: Mood disorder[ICD10: F39] Diagnosis: Bipolar 1 disorder, manic, full remission[ICD10: F31.74] Iain Olguin [facility] [address] [place] [id number] CPT-4: 93174 12/23/2023 Plan of Care Planned Activity Notes Codes Status Date Referral: [facility] [address] [id number] [place] Referral Appointment Scheduled 08/23/2024 Patient Education: Patient M edication Summary Completed 12/23/2023 Patient Education: Influenza Complet ed 12/23/2023 Patient Education: Dementia Complete d 12/23/2023 Instructions Comment Date New patient to [facility] 6.5.2023. PMH: DM2, peripheral neuropathy, gout, PVD, CHF (diasoltic. HfpEF ALISON EF 60-65% 2.2021), CKD (stage 3), mood disorder, bipolar manic full remission, mild cognitive impairmentSpecialty care providers: Podiatry (10.28.2023 Leonardo Willoughby - follow up in 3-4 months)Labs: : CBC w/ diff, BMP, A1c, TSH, VitD, VitB12, Magnesium, Lipid panelDecember: CBC, BMP, A1c6.8.2023: CBC HGB 14.6 PLT 241, BMP BUN 19, creat 1.77H, eGFR 38.59L, K 3.7, Na 142, BG 94. A1c 5.6. TSH 3.19. VitD 9L, VITB12 412, Mg 1.9. Lipid total chol 154, HDL 26.1L, LDL 69, trigs 294H, VLDL 59.8.: Vitamin D 53. *change to maintenance vitamin D. 04/24/2024 10 minutes spent in consulta tion with facility nurse prior to my visit 45 minutes spent face to face with patient today 46 page [facility] my visit to gain understanding of patient past medical history and current needs. Gout Currently taking: Allopurinol 100 mg QD. No recent acute gout flares reported. Continue plan of care. Monitor for flares. Type 2 diabetes mellitus with diabetic neuropathy, without long-term current use of insulin Currently taking Jardiance 12.5 mg QD (also for CHF) No medication at this time for neuropathy pain. Denies pain for me today. No skin breakdown appreciated today. Continue to monitor and continue current plan of care. Lab work will be ordered today. Chronic kidney disease, stage 3 unspecified [facility]. Will order lab work today to review myself. Chronic diastolic congestive heart failure [facility]: diastolic HF, ALISON with EF 60-65% 2.2021. Does not follow with cardiology. Current medication regimen: Amlodipine 5 mg QD. Lasix 20 mg QD. Jardiance 12.5 mg QD. Lisinopril 40 mg QD. Denies shortness of breath, lower extremity edema. Continue current regimen. Will order lab work today to obtain baseline results. Bipolar 1 disorder, manic, full remission [facility]. Does not follow with psych. Is not taking any mental health medication. Reports stable mood. Per nursing years ago attempted suicide by jumping off a bridge. Denies suicidal thoughts today. Monitor mood closely. 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 [facility]. No open sores present today. Encouraged physical activity as able, elevate legs when sitting, monitor closely for skin integrity concerns. Type 2 diabetes mellitus with stage 3 chronic kidney disease, without long-term current use of insulin, unspecified whether stage 3a or 3b CKD Does not check blood glucose. Currently taking: Jardiance 12.5mg QD (also for CHF) Will order lab work today for review. Continue current plan of care until we have lab work results. Mood disorder [facility]. Does not follow with psych. Is not taking any mental health medication. Reports stable mood. Per nursing years ago attempted suicide by jumping off a bridge. Denies suicidal thoughts today. Monitor mood closely. . 12/23/2023
--- OUTSIDE RECORDS SUMMARY | 2024-10-05 13:13 | XMS_ITS | CCD ---
Author Organization Unknown Care Team Providers Care Physical Therapy Nurse Name Role Phone Clau Iain STEWARD Primary Care Provider Sofia vailable Unavailable Chronic Care Management Unavaila ble Summary Purpose DataExchange Insurance Providers Payer name Policy type / Coverage type Covered libertarian ID Effective Begin Date Effective End Date [facility] Administration Plan [id number] Unknown Unknown Family History Family History data not found Allergies, Adverse Reactions, Alerts Substance Reaction Codes Entered Date Inactivated Date Status NO KNOWN DRUG ALLERGIES Unknown 12/04/2023 No In active Date Active Problems Condition Codes Effective Dates Condition St atus Chronic diastolic congestive heart failure ICD-10: I50.32 ICD-9: 428.32 04/27/2024 Active 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 ICD-10: E55.9 ICD-9: 268.9 04/27/2024 Active Stage 3b chronic kidney disease ICD-10: N18.32 ICD-9: 585.3 03/02/2024 Active Type 2 diabetes mellitus wit h stage 3b chronic kidney disease, without long-term current use of insulin ICD-10: E11.22 ICD-9: 250.40 03/02/2024 Active Chronic kidney disease, stag e 3 unspecified ICD-10: N18.30 03/02/2024 Resolved Diabetes Unknown 12/23/2023 Active Diabetes mellitus Type 2 Unknown 12/23/2023 Act misha Bipolar 1 disorder, manic, f ull remission ICD-10: F31.74 ICD-9: 296.46 12/23/2023 Active Gout ICD-10: M10.9 ICD-9: 274.9 12/23/2023 Active Mood disorder ICD-10: F39 ICD-9: 296.90 12/23/2023 Active 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 ICD-10: E11.51 ICD-9: 250.70 12/23/2023 Active Type 2 diabetes mellitus wit h diabetic neuropathy, without long-term current use of insulin ICD-10: E11.40 ICD-9: 250.60 12/23/2023 Active Medications Medication Codes Instructions Start Date Stop Date Status Fill Instructions Vitamin D3 25 mcg (1,000 unit) tablet RxNorm: 869399 Take 1 Tablet(s) Oral QOD every other day 04/27/20 24 025 Active Vitamin D3 25 mcg (1,000 unit) tablet RxNorm: 908608 Take 1 Tablet(s) Oral QOD every other day 04/27/20 24 024 Inactive cholecalciferol (vitamin D3) 1,250 mcg (50,000 unit) capsule RxNorm: 977085 Take 1 Capsule(s) Oral QD 12/28/19 24 024 Inactive cholecalciferol (vitamin D3) 1,250 mcg (50,000 unit) capsule RxNorm: 712063 Take 1 Capsule(s) Oral QW once a week for 8 weeks 12/28/19 24 024 Inactive hydrocodone 5 mg-acetaminophen 325 mg tablet RxNorm: 993127 Take 1 Tablet(s) Oral Q4-6H every 4-6 hours 12/24/19 24 025 Inactive Jardiance 25 mg tablet RxNorm: 0287937 Take 1/2 Tablet(s) Oral QD 12/24/19 24 No Stop Date Active lisinopril 40 mg tablet RxNorm: 780616 Take 1 Tablet(s) Oral QD 12/24/19 24 No Stop Date Active Tussin Cough (DM only) 15 mg/5 mL oral liquid RxNorm: 5404348 Take 5-10 Milliliter(s) Oral Q4-6H every 4-6 hours as needed 12/24/19 24 No Stop Date Active A and D (alirio, pet) topical ointment RxNorm: Take 1 Gram(s) Topical QD 12/24/19 24 No Stop Date Active Milk of Magnesia 400 mg/5 mL oral suspension RxNorm: 181519 Take 15-30 Milliliter(s) Oral QD as needed 12/24/19 24 No Stop Date Active amlodipine 10 mg tablet RxNorm: 862813 Take 1/2 Tablet(s) Oral QD 12/24/19 24 No Stop Date Active allopurinol 100 mg tablet RxNorm: 438803 Take 1 Tablet(s) Oral QD 12/24/19 24 No Stop Date Active cyanocobalamin (vit B-12) 1,000 mcg tablet RxNorm: 330773 Take 1 Tablet(s) Oral QD 12/24/19 24 No Stop Date Active atorvastatin 20 mg tablet RxNorm: 945237 Take 1 Tablet(s) Oral QD 12/24/19 24 No Stop Date Active acetaminophen 325 mg tablet RxNorm: 228959 Take 1-2 Tablet(s) Oral Q4-6H every 4-6 hours as needed 12/24/19 24 No Stop Date Active loperamide 2 mg tablet RxNorm: 836477 Take 1 Tablet(s) Oral QD as needed 12/24/19 24 No Stop Date Active magnesium oxide 420 mg tablet RxNorm: 927709 Take 1 Tablet(s) Oral QD 12/24/19 24 No Stop Date Active Antacid 200 mg-200 mg-20 mg/5 mL oral suspension RxNorm: 842463 Take 5-10 Milliliter(s) Oral QD as needed 12/24/19 24 No Stop Date Active diclofenac 1 % topical gel RxNorm: 268833 Apply 4 Gram(s) Topical QID 12/24/19 24 No Stop Date Active Senna-S 8.6 mg-50 mg tablet RxNorm: 547953 Take 1 Tablet(s) Oral QD as needed 12/24/19 24 No Stop Date Active furosemide 20 mg tablet RxNorm: 424614 Take 1 Tablet(s) Oral QD 12/24/19 24 No Stop Date Active Antacid 200 mg (as calcium carboante 500 mg) chewable tablet RxNorm: 889543 Take 1 Tablet(s) Oral QD 12/24/19 24 No Stop Date Active Medication Administered No Medication Administered data Reason For Visit No Reason For Visit data Plan of Care Planned Activity Notes Codes Status Date Referral: [facility]- Nephrology WPtel: [address] [place], [place] [id number] Referral Appointment Scheduled 08/23/2024 Instructions Comment Date New patient to [facility] 6.. PMH: DM2, peripheral neuropathy, gout, PVD, CHF (diasoltic. HfpEF ALISON EF 60-65% 2), CKD (stage 3), mood disorder, bipolar manic full remission, mild cognitive impairmentSpecialty care providers: Podiatry (10.28.2023 Leonardo Willoughby - follow up in 3-4 months)Labs: June: CBC w/ diff, BMP, A1c, TSH, VitD, [...]
--- OUTSIDE RECORDS SUMMARY | 2024-10-05 13:13 | XMS_ITS | CCD ---
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 Phone Iain Tirado Primary Care Provider Sofia vailable Unavailable Chronic Care Management Unavaila ble Summary Purpose DataExchange Insurance Providers Payer name Policy type / Coverage type Covered alliance party ID Effective Begin Date Effective End Date [facility] Administration Plan [id number] Unknown Unknown Family History Family History data [...] D3 25 mcg (1,000 unit) tablet RxNorm: 819015 Take 1 Tablet(s) Oral QOD every other day 04/27/20 24 025 Active Vitamin D3 25 mcg (1,000 unit) tablet RxNorm: 602491 Take 1 Tablet(s) Oral QOD every other day 04/27/20 24 024 Inactive cholecalciferol (vitamin D3) 1,250 mcg (50,000 unit) capsule RxNorm: 017047 Take 1 Capsule(s) Oral QD 12/28/19 24 024 Inactive cholecalciferol (vitamin D3) 1,250 mcg (50,000 unit) capsule RxNorm: 936715 Take 1 Capsule(s) Oral QW once a week for 8 weeks 12/28/19 24 024 Inactive hydrocodone 5 mg-acetaminophen 325 mg tablet RxNorm: 024788 Take 1 Tablet(s) Oral Q4-6H every 4-6 hours 12/24/19 24 025 Inactive Jardiance 25 mg tablet RxNorm: 6948740 Take 1/2 Tablet(s) Oral QD 12/24/19 24 No Stop Date Active lisinopril 40 mg tablet RxNorm: 716472 Take 1 Tablet(s) Oral QD 12/24/19 24 No Stop Date Active Tussin Cough (DM only) 15 mg/5 mL oral liquid RxNorm: 8082986 Take 5-10 Milliliter(s) Oral Q4-6H every 4-6 hours as needed 12/24/19 24 No Stop Date Active A and D (alirio, pet) topical ointment RxNorm: Take 1 Gram(s) Topical QD 12/24/19 24 No Stop Date Active Milk of Magnesia 400 mg/5 mL oral suspension RxNorm: 419490 Take 15-30 Milliliter(s) Oral QD as needed 12/24/19 24 No Stop Date Active amlodipine 10 mg tablet RxNorm: 901454 Take 1/2 Tablet(s) Oral QD 12/24/19 24 No Stop Date Active allopurinol 100 mg tablet RxNorm: 091326 Take 1 Tablet(s) Oral QD 12/24/19 24 No Stop Date Active cyanocobalamin (vit B-12) 1,000 mcg tablet RxNorm: 341191 Take 1 Tablet(s) Oral QD 12/24/19 24 No Stop Date Active atorvastatin 20 mg tablet RxNorm: 649736 Take 1 Tablet(s) Oral QD 12/24/19 24 No Stop Date Active acetaminophen 325 mg tablet RxNorm: 006100 Take 1-2 Tablet(s) Oral Q4-6H every 4-6 hours as needed 12/24/19 24 No Stop Date Active loperamide 2 mg tablet RxNorm: 026486 Take 1 Tablet(s) Oral QD as needed 12/24/19 24 No Stop Date Active magnesium oxide 420 mg tablet RxNorm: 271293 Take 1 Tablet(s) Oral QD 12/24/19 24 No Stop Date Active Antacid 200 mg-200 mg-20 mg/5 mL oral suspension RxNorm: 829310 Take 5-10 Milliliter(s) Oral QD as needed 12/24/19 24 No Stop Date Active diclofenac 1 % topical gel RxNorm: 339666 Apply 4 Gram(s) Topical QID 12/24/19 24 No Stop Date Active Senna-S 8.6 mg-50 mg tablet RxNorm: 376261 Take 1 Tablet(s) Oral QD as needed 12/24/19 24 No Stop Date Active furosemide 20 mg tablet RxNorm: 545398 Take 1 Tablet(s) Oral QD 12/24/19 24 No Stop Date Active Antacid 200 mg (as calcium carboante 500 mg) chewable tablet RxNorm: 048226 Take 1 Tablet(s) Oral QD 12/24/19 24 No Stop Date Active Medication Administered No Medication Administered data Procedures Procedure Codes Date HG A1C LEVEL LT 7.0% CPT-4: 3044F 04/27/2024 SYST BP LT 130 MM HG CPT-4: 3074F 04/27/2024 DIAST BP <80 MM HG CPT-4: 3078F 04/27/2024 Vital Signs Date Vital 04/27/2024 Blood Pressure 1: 120/78 Code: 8480-6 BMI: NaN Code: 15058-7 Heart Rate 1: 74 bpm Code: 8867-4 Height: 5'7 Code: 8302-2 SpO2: 96% Temperature: 37.1 (C) / 98.7 (F) Weight: 161 lbs 9 oz Code: 3141-9 Reason For Visit No Reason For Visit data Encounters Encounter Performer Location Location Address Codes Date (115[address]) Home or Residence Visit Est Pt - Moderate Level, 40 mins Diagnosis: 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 *change to maintenance vitamin D. 04/24/2024 Chronic diastolic congestive heart failure Currently taking: Amlodipine 5 mg QD. Lasix 20 mg QD. Lisinopril 40 mg QD. No exacerbation since last visit. Lab schedule: . Weight is stable: 161.9lbs Plan today: Continue with above regimen. 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 Discontinued high dose supplementation. Did order maintenance dose but it does not appear it made it on the patients medication list that was reviewed at the facility today. Plan today: Place maintenance vitamin D supplementation order again. Will follow up on vitamin D serum level yearly.. 04/27/2024
--- OUTSIDE RECORDS SUMMARY | 2024-10-05 13:13 | XMS_ITS | CCD ---
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 Phone Iain Tirado Primary Care Provider Sofia vailable Unavailable Chronic Care Management Unavaila ble Summary Purpose DataExchange Insurance Providers Payer name Policy type / Coverage type Covered green party ID Effective Begin Date Effective End Date [facility] Administration Plan [id number] Unknown Unknown Family History Family History data not found Allergies, Adverse Reactions, Alerts Substance Reaction Codes Entered Date Inactivated Date Status NO KNOWN DRUG ALLERGIES Unknown 12/04/2023 No In active Date Active Problems Condition Codes Effective Dates Condition St atus Chronic diastolic congestive heart failure ICD-10: I50.32 ICD-9: 428.32 08/29/2024 Active Stage 4 chronic kidney disease ICD-10: N 18.4 ICD-9: 585.4 08/29/2024 Active Deformity of toe of right foot ICD-10: M 20.61 ICD-9: 735.9 06/29/2024 Active 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 ICD-10: E11.51 ICD-9: 250.70 06/29/2024 Active Stage 3b chronic kidney disease ICD-10: N18.32 ICD-9: 585.3 06/29/2024 Active 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 ICD-10: E55.9 ICD-9: 268.9 04/27/2024 Active Type 2 diabetes mellitus wit h [...] disorder ICD-10: F39 ICD-9: 296.90 12/23/2023 Active Type 2 diabetes mellitus wit h diabetic neuropathy, without long-term current use of insulin ICD-10: E11.40 ICD-9: 250.60 12/23/2023 Active Medications Medication Codes Instructions Start Date Stop Date Status Fill Instructions furosemide 20 mg tablet RxNorm: 059961 Take 1 Tablet(s) Oral QD 08/29/19 No Stop Date Active furosemide 20 mg tablet RxNorm: 121633 Take 1 Tablet(s) Oral QD 08/11/19 Active amlodipine 10 mg tablet RxNorm: 035431 Take 1/2 Tablet(s) Oral QD 08/11/19 Active atorvastatin 10 mg tablet RxNorm: 446287 Take 1 Tablet(s) Oral HS at bed time 08/11/19 026 Active atorvastatin 10 mg tablet RxNorm: 307068 Take 1 Tablet(s) Oral HS at bed time 08/11/19 25 025 Inactive cephalexin 500 mg tablet RxNorm: 519227 Tablet(s) Oral Take 1 tablet PO BID for 7 days for soft tissue infection of toe. 06/07/20 024 Inactive cephalexin 500 mg tablet RxNorm: 871282 Tablet(s) Oral Take 1 tablet PO BID for 7 days for soft tissue infection of toe. 06/07/20 24 024 Inactive Vitamin D3 25 mcg (1,000 unit) tablet RxNorm: 151701 Take 1 Tablet(s) Oral QOD every other day 04/27/20 24 025 Active Vitamin D3 25 mcg (1,000 unit) tablet RxNorm: 580467 Take 1 Tablet(s) Oral QOD every other day 04/27/20 24 024 Inactive cholecalciferol (vitamin D3) 1,250 mcg (50,000 unit) capsule RxNorm: 568010 Take 1 Capsule(s) Oral QD 12/28/19 24 024 Inactive cholecalciferol (vitamin D3) 1,250 mcg (50,000 unit) capsule RxNorm: 827328 Take 1 Capsule(s) Oral QW once a week for 8 weeks 12/28/19 24 024 Inactive hydrocodone 5 mg-acetaminophen 325 mg tablet RxNorm: 982738 Take 1 Tablet(s) Oral Q4-6H every 4-6 hours 12/24/19 24 025 Inactive lisinopril 40 mg tablet RxNorm: 211136 Take 1 Tablet(s) Oral QD 12/24/19 24 No Stop Date Active Tussin Cough (DM only) 15 mg/5 mL oral liquid RxNorm: 0982511 Take 5-10 Milliliter(s) Oral Q4-6H every 4-6 hours as needed 12/24/19 24 No Stop Date Active A and D (alirio, pet) topical ointment RxNorm: Take 1 Gram(s) Topical QD 12/24/19 24 No Stop Date Active Milk of Magnesia 400 mg/5 mL oral suspension RxNorm: 274736 Take 15-30 Milliliter(s) Oral QD as needed 12/24/19 24 No Stop Date Active allopurinol 100 mg tablet RxNorm: 990403 Take 1 Tablet(s) Oral QD 12/24/19 24 No Stop Date Active cyanocobalamin (vit B-12) 1,000 mcg tablet RxNorm: 024326 Take 1 Tablet(s) Oral QD 12/24/19 24 No Stop Date Active acetaminophen 325 mg tablet RxNorm: 256488 Take 1-2 Tablet(s) Oral Q4-6H every 4-6 hours as needed 12/24/19 24 No Stop Date Active loperamide 2 mg tablet RxNorm: 488317 Take 1 Tablet(s) Oral QD as needed 12/24/19 24 No Stop Date Active magnesium oxide 420 mg tablet RxNorm: 205390 Take 1 Tablet(s) Oral QD 12/24/19 24 No Stop Date Active Antacid 200 mg-200 mg-20 mg/5 mL oral suspension RxNorm: 156198 Take 5-10 Milliliter(s) Oral QD as needed 12/24/19 24 No Stop Date Active diclofenac 1 % topical gel RxNorm: 691638 Apply 4 Gram(s) Topical QID 12/24/19 24 No Stop Date Active Senna-S 8.6 mg-50 mg tablet RxNorm: 387116 Take 1 Tablet(s) Oral QD as needed 12/24/19 24 No Stop Date Active Antacid 200 mg (as calcium carboante 500 mg) chewable tablet RxNorm: 702755 Take 1 Tablet(s) Oral QD 12/24/19 24 No Stop Date Active Jardiance 25 mg tablet RxNorm: 3031844 Take 1/2 Tablet(s) Oral QD 12/24/19 24 025 Inactive amlodipine 10 mg tablet RxNorm: 814287 Take 1/2 Tablet(s) Oral QD 12/24/19 24 025 Inactive atorvastatin 20 mg tablet RxNorm: 176967 Take 1 Tablet(s) Oral QD 12/24/19 24 025 Inactive furosemide 20 mg tablet RxNorm: 123951 Take 1 Tablet(s) Oral QD 12/24/19 24 025 Inactive Medication Administered No Medication Administered data Procedures Procedure Codes Date SYST BP LT 130 MM HG CPT-4: 3074F 08/29/2024 DIAST BP <80 MM HG CPT-4: 3078F 08/29/2024 Vital Signs Date Vital 08/29/2024 Blood Pressure 1: 122/79 Code: 8480-6 Heart Rate 1: 77 bpm Code: 8867-4 SpO2: 96% Temperature: 36.3 (C) / 97.4 (F) Reason For Visit No Reason For Visit data Encounters Encounter Performer Location Location Address Codes Date ([address]) Home or Residence Visit Est Pt - Moderate Level, 40 mins Diagnosis: Stage 4 chronic kidney disease[ICD10: N18.4] Diagnosis: Chronic diastolic congestive heart failure[ICD10: I50.32] Iain [address] [address] CPT-4: 89361 08/29/2024 Plan of Care Planned Activity Notes Codes Status Date Patient Education: Patient M edication Summary Completed 08/29/2024 Patient Education: Influenza Complet ed 08/29/2024 Referral: [facility]- Nephrology WPtel: [address] [place], [place] [id number] [place] Referral Records Received 08/23/2024 Instructions Comment Date New patient to [facility] 6..2023. PMH: DM2, peripheral neuropathy, gout, PVD, CHF [...] D 53. *change to maintenance vitamin D. 07.05.2024: BMP Na 141, K 5.0. BUN 31.8H. Creatinine 2.26H. eGFR 29L. Ca 9.2. BG 85. messaged asking about nephrology referral. 08/29/2024 Chronic diastolic congestive heart failure 12 labs: BMP Na 141, K 5.0. BUN 31.8H. Creatinine 2.26H. eGFR 29L. Ca 9.2. BG 85. No recent exacerbations. Lab schedule: . Continue: Amlodipine 5 mg PO QD Lasix 20 mg PO QD Lisinopril 40 mg PO QD Stage 4 chronic kidney disease .2023 Creatinine 1.77 eGFR 38.59 12.2023 Creatinine 2.26 eGFR 29 Referral Order: Nephrology, last progress note, and all required information has been sent to [facility]- Nephrology , appointment is confirmed and patient is to be seen by Dr. Ciara Prince at 3:00 PM (Arrival time @ 2:45PM) on 08/23/2024. Address: [address] [place] [id number] Control BP as appropriate for age, risk for falls, and life expectancy. Avoid nephrotoxic medications. Renal dose medications as appropriate. . 08/29/2024
--- OUTSIDE RECORDS SUMMARY | 2024-10-05 13:14 | XMS_ITS | Encounter Summary ---
Author Name [facility] [place] Organization [facility] [place] Address [address] [place] [id number] Care Team Providers Care Electrical Solderer Name Role Phone ADA SCHNEIDER Primary Care Provider Unavailabl e Insurance Providers: All historical and current Section [...] PART A May 20, 2009 PART A [id number] [phone] KE ORDOÑEZ YDELVIN PATIENT MEDICARE (WNR) MEDICARE (M) PART A May 20, 2009 PART A [id number] [phone] KE ORDOÑEZ YDELVIN PATIENT Selected Encounter This section includes the information on record at [place] for the Encounter. Date/Time Encounter Type Encounter Description Reason Provider Source Oct 09, 2023 02:00 PM OFFICE O/P EST HI 40 MIN PRIMARY CARE/MEDICINE ICD-10-CM I10 Essential (primary) hypertension DARA SCHNEIDER [place] Encounter Template Text not used by [place] Assessments - Encounter Diagnoses This section includes the primary and secondary diagnoses documented for the Encounter. Date/Time Primary/Secondary Diagnosis Diagnosis Name Provider Source Oct 09, 2023 06:09 PM PRIMARY Essential (primary) hypertension DARA SCHNEIDER [facility] Oct 09, 2023 06:09 PM SECONDARY Chronic diastolic (congestive) heart failure DARA SCHNEIDER [facility] Oct 09, 2023 06:09 PM SECONDARY Chronic kidney disease, unspecified DARA SCHNEIDER [facility] Oct 09, 2023 06:09 PM SECONDARY Type 2 diabetes mellitus without complications DARA SCHNEIDER [facility] Plan of Treatment: Future Appointments (+ 6 months) and Future Tests (+/- 45 days) The Plan of Treatment section includes future care activities for the patient from all [place] [facility] This section includes future appointments and future orders which are active, pending or scheduled. Future Appointments This section includes appointments that were scheduled to occur 6 months from the date of the Encounter, up to a maximum of 20 appointments. The data comes from all [facility]. Appointment Date/Time Appointment Type Appointme nt Facility Name Oct 20, 2023 07:00 AM AMBULATORY - NONE [facility] Oct 22, 2023 02:30 PM AMBULATORY - REHAB [facility] Oct 28, 2023 02:00 PM AMBULATORY - SURGERY [facility] Dec 23, 2023 07:01 AM AMBULATORY - NONE [facility] Active, Pending, and Scheduled Orders This [...] from all [facility]. Test Date/Time Test Type Test Details Facility Name Sep 28, 2023 12:00 AM Laboratory - Chemi stry Order ALBUMIN/CREATININE RATIO URINE URINE SP ONCE [facility] Social History: Smoking Status (Most current) and Tobacco Use (All prior to encounter date) This section includes the most current, and the historical, smoking and tobacco- related health factors from the [place] facility where the Encounter took place. Current Smoking Status This section includes the most current smoking, or tobacco-related health factor, from the [place] facility where the Encounter took place. Date/Time Current Smoking Status Comment Katarina verma Jul 30, 2023 10:30 AM VA-TOBACCO FORMER USER [facility] Tobacco Use History This section includes a history of the smoking, or tobacco-related health factors, that were collected on or before the date of the Encounter. The data comes from the [place] facility where the Encounter took place. Date/Time Smoking Status/Tobacco Use Comment F acility Jul 30, 2023 10:30 AM VA-TOBACCO QUIT 5 TO < [address] [facility] Jan 15, 2022 11:00 AM VA-TOBACCO FORMER USER [facility] Jan 15, 2022 11:00 AM VA-TOBACCO QUIT [address] [facility] December 14, 2020 01:30 PM VA-TOBACCO FORMER USER [facility] December 14, 2020 01:30 PM VA-TOBACCO QUIT 5 TO < [address] [facility] Aug 19, 2019 11:35 AM VA-TOBACCO FORMER USER [facility] Aug 19, 2019 11:35 AM VA-TOBACCO QUIT [address] [facility] Aug 27, 2018 11:54 AM VA-TOBACCO DOESNT USE WI [address] [facility] Aug 27, 2018 11:54 AM VA-TOBACCO USE [address] [facility] Aug 27, 2018 11:54 AM VA-TOBACCO USE ADVICE [facility] Aug 27, 2018 11:54 AM VA-TOBACCO USE AIR INTERCEPT CONTROLLER NO [facility] Aug 27, 2018 11:54 AM VA-TOBACCO USE MED NO [facility] Aug 27, 2018 11:54 AM VA-TOBACCO USER SOME DAYS [facility] Dec 24, 2016 12:51 PM FORMER TOBACCO USER 7Y OR GREATE R [facility] Sep 12, 2015 09:12 AM FORMER TOBACCO USE >1Y <7Y [facility] Sep 05, 2014 10:04 AM LIFETIME NON-TOBACCO USER [facility] Aug 25, 2014 09:45 AM FORMER TOBACCO USE >1Y <7Y [facility] Aug 03, 2014 06:11 PM FORMER TOBACCO USER 7Y OR GREATE R [facility] Aug 03, 2014 02:50 PM LIFETIME NON-TOBACCO USER [facility] Aug 01, 2014 11:24 AM FORMER TOBACCO USE >1Y <7Y [facility] Mar 07, 2013 08:45 AM FORMER TOBACCO USE >1Y <7Y [facility] Oct 17, 2009 07:56 AM CURRENT TOBACCO USER [facility] Sep 01, 2006 09:04 AM CURRENT TOBACCO USER [facility] Sep 01, 2006 09:04 AM FORMER TOBACCO USER 7Y OR GREATE R [facility] Advance Directives: All historical and current Section Date Range: From patient's date of to the date document was created. This section includes ALL of a patient's completed or amended [place] Advance and Rescinded Directives. The entries below indicate that a directive exists for the patient, but an actual copy is not included with this document. The data comes from all [place] facilities. Date Advance Directives Provider Source Sep 06, 2014 CLINICAL WARNING TOYIN COTA LIS [facility] Aug 05, 2014 CLINICAL WARNING ROEL MERCER IS [facility] Aug 01, 2014 CLINICAL WARNING ALETA MAZARIEGOS IS [facility] Jul 28, 2007 ADVANCE DIRECTIVE CATY ADORNO IS [facility] Radiology Reports: +/- 30 days of the encounter Radiology Reports For cases when an order for radiology services may have been completed prior to the date of the Encounter, the report list includes the Radiology Reports that were completed up to 30 days before dateof the Encounter. For cases when an order for radiology services may have been completed after the date of the Encounter, the report list also includes the Radiology Reports that were completed up to30 days after date of the Encounter. The data comes from all [place] treatment facilities. Date/Time Radiology Report Provider Source Oct 05, 2023 09:24 AM ELBOW LEFT 3 OR MO RE VIEWS: IMAN ORDOÑEZ [id number] -[id number] M Exm Date: OCT 05, 2023@09:24 Req Phys: SCOUT FRYE Loc: [facility] (Req'g Loc) Img Loc: MAIN X-RAY Service: Unknown (Case [id number] COMPLETE) ELBOW LEFT 3 OR MORE VIEWS (RAD Detailed) CPT:29194 Reason for Study: L distal humerus fx, please obtain XR out of splint Clinical History: Report Status: Verified Date Reported: OCT 05, 2023 Date Verified: OCT 05, 2023 It Network Engineer E-Sig:/ES/RASHEED CORCORAN MD, FACR, CCD Report: EXAMINATION: ELBOW LEFT 3 OR MORE VIEWS 10/05/2023 9:24 AM INDICATION: L distal humerus fx, please obtain XR out of splint COMPARISON: Left elbow radiographs August 24, 2023. FINDINGS: Some interval healing appears to have occurred associated with the intra-articular fracture distal humerus. Mild displacement again appears to be present which does not appear significantly changed. The radial head appears intact. The olecranon appears intact. Impression: Some interval healing appears to be associated with the fracture distal humerus. The fracture line remains visible. Primary Interpreting Staff: RASHEED CORCORAN MD, FACR, STAFF RADIOLOGIST (It Network Engineer) /BSF RASHEED CORCORAN [facility] Encounter Notes: All associated encounter notes This section contains the clinical notes associated to the Encounter. Date/Time Encounter Note(s) Provider Source Oct 12, 2023 10:51 AM ADDENDUM: LOCAL TITLE: Addendum STANDARD TITLE: ADDENDUM DATE OF NOTE: OCT 12, 2023@10:51:33 ENTRY DATE: OCT 12, 2023@10:51:35 AUTHOR: HAMIDA MONTERO COSIGNER: URGENCY: STATUS: COMPLETED Alerting CC PCP RN Jana Laurent as an FYI. /es/ Hamida Montero RN machine maintenance technician Mill Attendant Signed: 10/12/2023 10:52 Receipt Acknowledged By: 10/12/2023 11:05 /es/ MICHELLE HERNANDEZ RN Registered Nurse, [facility] for JANA MANCILLA --- Original Document --- 10/09/23 MEDICINE CLINIC NOTE: ############################ ############### [facility] PRIMARY [facility]ARE CLINIC NOTE (PACT [place]) Patient verbally consented to video appointment. No connection problems. Patient's address: home address on file Emergency: see contacts on file ############################ ################ Total time spent on patient care including chart/diagnostic/test review, patient interview/examination, ordering medications/tests, interpreting results,and counseling/documentation was 45 minutes. Combined: Problem-based HPI/Exam/Assessment/Plan and Instructions to Patient ############################ ######################### [facility] Visit Special/follow up notes: 10/09/23 14:00 Patient was seen at [facility] with asistance from Linda Aranda. Until he fell, patient was able to do more self care. After the arm fracture, had trouble wiping himself and needed increased help. He's not able to go to [place] alone and has been needing staff to go with him. Ability to get care near home would be advantageous. able to eat on his own. able to stand up on his own. able to ambulate but not steady and need walker Exam: GEN - Alert, awake, no distress. Frail HEENT- no obvious deformities/trauma UE's - able to raise arms above head LE's - able to stand up and walk on his own; stooped over posture. # labs -due for labs; defer to new [facility] primary care; prefer [facility] physicians at [facility] # Medication rec discrepancies [facility] list Amlodipine 10mg take 1/2 tab daily Atorvastatin 20mg take 1/2 tab daily Current med list Amlodipine 5mg take 1 tab daily Atorvastatin 10mg take 1 tab daily # Walker/rollator - [facility] will assist patient [facility] # L distal humerus fx - was seen by ortho. d/c'ed from sling/brace/OT. # HTN/HLD - controlled continue with current medications. # leg swelling improved after starting lasix # HFpEF TTE EF 60 to 65% 08/2019, mild cLVH; suspect dCHF - c/w amlodipine, atorvastatin, furosemide, lisinopril. - c/w magnesium # Gout - stable c/w allopurinol 100mg # DM controlled c/w empagliflozin # PAD present; significant RLE. control risk factors ---- Unmodified Notes from Previous A/P for continuity ---- # R 4th digit gouty lesion -resolved. # CKD stable 1.8->1.9->2 # cognitive issues mild - [facility] 12/2021 # involuntary tongue movement (tard dy?)- monitor # B12 deficiency - supplement needed, improve diet # RHCM Vax - declines vaccine SHx - quit smoking > 15 yrs ago, no etoh Preventive screening - reports prev done ~ 5yrs w/o significant findings. d/c screening due to age Adv directive - per postings No data available Adv directive - per postings Stable conditions ATYPICAL PSYCHOSIS 100% SC Reviewed available labs/scans today as appropriate. Med/Surg/Fam/Soc Hx: Reviewed and updated as needed in problem list. Nursing notes reviewed. CC in nursing note/HPI. Updated Problem List as needed re past med/surg/fam/social history. RTC - routine f/u appt in 6-12 m (1yr for co-mged pts). Instructed patient to follow up sooner than discussed / per recall if any new concerns or worsening of symptoms. //////////////////////////// //////////////////////////// ///////////// Last Vitals: Temp: 97.5 F [36.4 C] (09/28/2023 10:33) Resp: 16 (09/28/2023 10:33) Pulse: 95 (09/28/2023 10:40) Pain: 0 (09/28/2023 10:33) Osat 95% (09/28/2023 10:33) Measurement DT BP 09/28/2023 10:40 120/67 09/28/2023 10:33 152/91 07/30/2023 10:27 127/85 Measurement DT WEIGHT LB(KG)[BMI] 07/30/2023 10:27 162.8(73.84)[26] 01/15/2022 10:06 177(80.29)[30*] 07/18/2021 10:06 173.6(78.74)[29*] //////////////////////////// //////////////////////////// ///////////// Labs/tests: see below. See A/P for relevant discussion. See CPRS problem list for any relevant external results PROBLEM LIST (see CPRS for any updates done during the visit) --------- Active problems - Computerized Problem List is the source for the followin. Mood disorder (SNOMED CT 61488654) 2. Hypertension (SNOMED CT 86455147) 3. Bipolar, Manic Full Rem 4. Idiopathic fecal incontinence 5. Chronic kidney disease stage 3 6. Diabetes Mellitus Type 2 ([facility] 85902587) - prev dx. a1c >6.5 prev. now controlled ?(no med) 7. Diastolic heart failure LAB/TEST DATA See CPRS problem list for any additional external results --------- PSA - NONE FOUND HGB - NONE FOUND Collection DT Spec HGBA1C 09/25/2022 12:33 BLOOD 5.5 01/15/2022 09:23 BLOOD 6.2 H 07/18/2021 09:45 BLOOD 5.7 CREATININE - NONE FOUND TSH ____ LDL CALCULATION____ SLT - Lab Tests Selected Collection DT Specimen Test Name Result Units Ref Range 12/14/2020 10:05 PLASMA!! LDL CALCULATION 65 mg/dL Ref: <= 99 !! Indicates COMMENTS AVAILABLE...Refer to Interim Lab Report. MEASURED LDL____ No data available Measurement DT BP 09/28/2023 10:40 120/67 09/28/2023 10:33 152/91 07/30/2023 10:27 127/85 Measurement DT WEIGHT LB(KG)[BMI] 07/30/2023 10:27 162.8(73.84)[26] 01/15/2022 10:06 177(80.29)[30*] 07/18/2021 10:06 173.6(78.74)[29*] Patient was informed of available lab, imaging, and other study results noted and/or associated with today's visit. Completed medication reconciliation during the visit and updated medication list in CPRS. Provided patient/caregiver regarding any changes and possible side effects, interactions, contraindications and precautions. Patient/caregiver asked to contact clinic with any questions or concerns. Discussed plan of care with patient/caregiver and instructed to contact clinic for any questions/clarifications. Discussed the importance of seeking care [facility] if any changes/worsening of symptoms, or if any new/concerning symptoms. Patient/caregiver voice understanding of above and no further questions. -------- Medication Reconciliation: Education Evaluations *Was medication education provided for NEW medications or CHANGES to medications? (including medication name, dose, route, reason for use, and potential side effects). Yes. Verbal education was provided to patient/caregiver and patient/caregiver verbalized understanding. TERATOGENIC MED & CONTRACEPTION REVIEW (Optional)... === MEDICATION RECONCILIATION === List Given: An updated medication list was provided to the patient/caregiver. Review Done: The medication list shown below [...] may not display in CPRS. Use JLV Allergies: Patient has answered NKA For most uptodate list reflecting medication changes from today's visit, please see Meds Tab or the active orders section. Active and Recently Outpatient Medications (including Supplies): Active Outpatient Medications Status 1) ALLOPURINOL 100MG TAB TAKE ONE TABLET BY MOUTH EVERY ACTIVE DAY FOR GOUT PREVENTION 2) AMLODIPINE BESYLATE 5MG TAB TAKE ONE TABLET BY MOUTH ACTIVE AT BEDTIME FOR BLOOD PRESSURE 3) ATORVASTATIN CALCIUM 10MG TAB TAKE ONE TABLET BY ACTIVE MOUTH AT BEDTIME FOR CHOLESTEROL 4) BRIEF,TRANQUILITY YUNIOR OVERNITE MED#2115 USE BRIEF ACTIVE DIRECTED 5) CYANOCOBALAMIN 1000MCG [...] MOUTH ACTIVE EVERY DAY FOR MAGNESIUM DEFICIENCY 10) VANICREAM TOP CREAM APPLY THIN LAYER TOPICALLY EVERY ACTIVE DAY FOR DRY SKIN, IDEALLY WITHIN 3 MINUTES AFTER BATH OR SHOWER. Active Non-VA Medications Status 1) Non-VA ACETAMINOPHEN 325MG TAB 325MG MOUTH EVERY 6 ACTIVE HOURS NEEDED 17 Total Medications 19 Total Medications /es/ Ada Schneider MD Primary Care Staff Physician Signed: 10/09/2023 18:09 10/09/2023 ADDENDUM STATUS: COMPLETED Please connect with nurse at [facility] (Linda mehta) [phone] Reviewed the med list from [facility] # Medication rec discrepancies [facility] list Amlodipine 10mg take 1/2 tab daily Atorvastatin 20mg take 1/2 tab daily Current med list Amlodipine 5mg take 1 tab daily Atorvastatin 10mg take 1 tab daily Please clarify if he's actually taking 1 tab or 1/2 tab and strength. # Regarding referral to [facility] Primary care. .... should expect call from [facility]. Provided them with Linda's name to facilitate - patient's due for blood work. I would recommend that be done after he transfers to community primary care. /angelita/ Ada Schneider MD Primary Care Staff Physician Signed: 10/09/2023 18:15 Receipt Acknowledged By: 10/12/2023 09:14 /angelita/ JEREMIAH MORALEZ RN BSN 10/12/2023 ADDENDUM STATUS: COMPLETED [facility] contacted and Linda Aranda out of office this week. This insurance underwriter spoke with Nursing Staff and they clarified below is what he is taking at [facility]: [facility] list Amlodipine 10mg take 1/2 tab daily Atorvastatin 20mg take 1/2 tab daily [facility] did get in contact with them today and this insurance underwriter also reviewed that needed lab work should be completed by Community Primary Care physician. They verbalized understanding and will communicate this to Primary Care office. Will addend PCP for awareness and [facility] RN. /angelita/ JEREMIAH MORALEZ RN BSN Signed: 10/12/2023 09:16 Receipt Acknowledged By: 10/12/2023 10:50 /angelita/ Hamida Montero RN machine maintenance technician Mill Attendant * AWAITING SIGNATURE * ADA SCHNEIDER [facility] A [facility] Oct 12, 2023 09:15 AM ADDENDUM: LOCAL TITLE: Addendum STANDARD TITLE: ADDENDUM DATE OF NOTE: OCT 12, 2023@09:15:04 ENTRY DATE: OCT 12, 2023@09:15:04 AUTHOR: JEREMIAH MORALEZ COSIGNER: URGENCY: STATUS: COMPLETED [facility] contacted and Linda Aranda out of office this week. This insurance underwriter spoke with Nursing Staff and they clarified below is what he is taking at [facility]: [facility] list Amlodipine 10mg take 1/2 tab daily Atorvastatin 20mg take 1/2 tab daily [facility] did get in contact with them today and this insurance underwriter also reviewed that needed lab work should be completed by [facility] physician. They verbalized understanding and will communicate this to Primary Care office. Will addend PCP for awareness and [facility] RN. /angelita/ JEREMIAH MORALEZ BRAIDER SETTER Signed: 10/12/2023 09:16 Receipt Acknowledged By: 10/12/2023 10:50 /angleita/ Hamida Montero RN machine maintenance technician Mill Attendant 10/12/2023 12:35 /es/ Ada Schneider MD Primary Care Staff Physician --- Original Document --- 10/09/23 MEDICINE CLINIC NOTE: ############################ ############### [facility] PRIMARY CARE CLINIC NOTE (PACT [place]) Patient verbally consented to video appointment. No connection problems. Patient's address: home address on file Emergency: see contacts on file ############################ ################ Total time spent on patient care including chart/diagnostic/test review, patient interview/examination, ordering medications/tests, interpreting results,and counseling/documentation was 45 minutes. Combined: Problem-based HPI/Exam/Assessment/Plan and Instructions to Patient ############################ ######################### [facility] Visit Special/follow up notes: 10/09/23 14:00 Patient was seen at [facility] with asistance from Linda Aranda. Until he fell, patient was able to do more self care. After the arm fracture, had trouble wiping himself and needed increased help. He[place] not able to go to [place] alone and has been needing staff to go with him. Ability to get care near home would be advantageous. able to eat on his own. able to stand up on his own. able to ambulate but not steady and need walker Exam: GEN - Alert, awake, no distress. Frail HEENT- no obvious deformities/trauma UE's - able to raise arms above head LE's - able to stand up and walk on his own; stooped over posture. # labs -due for labs; defer to new [facility] primary care; prefer [facility] physicians at [facility] # Medication rec discrepancies ANT list Amlodipine 10mg take 1/2 tab daily Atorvastatin 20mg take 1/2 tab daily Current med list Amlodipine 5mg take 1 tab daily Atorvastatin 10mg take 1 tab daily # Walker/rollator - [facility] assist [facility] # L distal humerus fx - was seen by ortho. d/c'ed from sling/brace/OT. # HTN/HLD - controlled continue with current medications. # leg swelling improved after starting lasix # HFpEF TTE EF 60 to 65% 08/2019, mild cLVH; suspect dCHF - c/w amlodipine, atorvastatin, furosemide, lisinopril. - c/w magnesium # Gout - stable c/w allopurinol 100mg # DM controlled c/w empagliflozin # PAD present; significant RLE. control risk factors ---- Unmodified Notes from Previous A/P for continuity ---- # R 4th digit gouty lesion -resolved. # CKD stable 1.8->1.9->2 # cognitive issues mild - [facility] 12/2021 # involuntary tongue movement (tard dy?)- monitor # B12 deficiency - supplement needed, improve diet # RHCM Vax - declines vaccine SHx - quit smoking > 15 yrs ago, no etoh Preventive screening - reports prev done ~ 5yrs w/o significant findings. d/c screening due to age Adv directive - per postings No data available Adv directive - per postings Stable conditions ATYPICAL PSYCHOSIS 100% SC Reviewed available labs/scans today as appropriate. Med/Surg/Fam/Soc Hx: Reviewed and updated as needed in problem list. Nursing notes reviewed. CC in nursing note/HPI. Updated Problem List as needed re past med/surg/fam/social history. RTC - routine f/u appt in 6-12 m (1yr for co-mged pts). Instructed patient to follow up sooner than discussed / per recall if any new concerns or worsening of symptoms. //////////////////////////// //////////////////////////// ///////////// Last Vitals: Temp: 97.5 F [36.4 C] (09/28/2023 10:33) Resp: 16 (09/28/2023 10:33) Pulse: 95 (09/28/2023 10:40) Pain: 0 (09/28/2023 10:33) Osat 95% (09/28/2023 10:33) Measurement DT BP 09/28/2023 10:40 120/67 09/28/2023 10:33 152/91 07/30/2023 10:27 127/85 Measurement DT WEIGHT LB(KG)[BMI] 07/30/2023 10:27 162.8(73.84)[26] 01/15/2022 10:06 177(80.29)[30*] 07/18/2021 10:06 173.6(78.74)[29*] //////////////////////////// //////////////////////////// ///////////// Labs/tests: see below. See A/P for relevant discussion. See CPRS problem list for any relevant external results PROBLEM LIST (see CPRS for any updates done during the visit) --------- Active problems - Computerized Problem List is the source for the followin. Mood disorder (SNOMED CT 01000757) 2. Hypertension (SNOMED CT 73570269) 3. Bipolar, Manic Full Rem 4. Idiopathic fecal incontinence 5. Chronic kidney disease stage 3 6. Diabetes Mellitus Type 2 (SCT 08702660) - prev dx. a1c >6.5 prev. now controlled ?(no med) 7. Diastolic heart failure LAB/TEST DATA See CPRS problem list for any additional external results --------- PSA - NONE FOUND HGB - NONE FOUND Collection DT Spec HGBA1C 09/25/2022 12:33 BLOOD 5.5 01/15/2022 09:23 BLOOD 6.2 H 07/18/2021 09:45 BLOOD 5.7 CREATININE - NONE FOUND TSH ____ LDL CALCULATION____ SLT - Lab Tests Selected Collection DT Specimen Test Name Result Units Ref Range 12/14/2020 10:05 PLASMA!! LDL CALCULATION 65 mg/dL Ref: <= 99 !! Indicates COMMENTS AVAILABLE...Refer to Interim Lab Report. MEASURED LDL____ No data available Measurement DT BP 09/28/2023 10:40 120/67 09/28/2023 10:33 152/91 07/30/2023 10:27 127/85 Measurement DT WEIGHT LB(KG)[BMI] 07/30/2023 10:27 162.8(73.84)[26] 01/15/2022 10:06 177(80.29)[30*] 07/18/2021 10:06 173.6(78.74)[29*] Patient was informed of available lab, imaging, and other study results noted and/or associated with today's visit. Completed medication reconciliation during the visit and updated medication list in CPRS. Provided patient/caregiver regarding any changes and possible side effects, interactions, contraindications and precautions. Patient/caregiver asked to contact clinic with any questions or concerns. Discussed plan of care with patient/caregiver and instructed to contact clinic for any questions/clarifications. Discussed the importance of seeking care NICK if any changes/worsening of symptoms, or if any new/concerning symptoms. Patient/caregiver voice understanding of above and no further questions. -------- Medication Reconciliation: Education Evaluations *Was medication education provided for NEW medications or CHANGES to medications? (including medication name, dose, route, reason for use, and potential side effects). Yes. Verbal education was provided to patient/caregiver and patient/caregiver verbalized understanding. TERATOGENIC MED & CONTRACEPTION REVIEW (Optional)... === MEDICATION RECONCILIATION === List Given: An updated medication list was provided to the patient/caregiver. Review Done: The medication list shown below [...] may not display in CPRS. Use JLV Allergies: Patient has answered NKA For most uptodate list reflecting medication changes from today's visit, please see Meds Tab or the active orders section. Active and Recently Outpatient Medications (including Supplies): Active Outpatient Medications Status 1) ALLOPURINOL 100MG TAB TAKE ONE TABLET BY MOUTH EVERY ACTIVE DAY FOR GOUT PREVENTION 2) AMLODIPINE BESYLATE 5MG TAB TAKE ONE TABLET BY MOUTH ACTIVE AT BEDTIME FOR BLOOD PRESSURE 3) ATORVASTATIN CALCIUM 10MG TAB TAKE ONE TABLET BY ACTIVE MOUTH AT BEDTIME FOR CHOLESTEROL 4) BRIEF,TRANQUILITY YUNIOR OVERNITE MED#2115 USE BRIEF ACTIVE DIRECTED 5) CYANOCOBALAMIN 1000MCG [...] MOUTH ACTIVE EVERY DAY FOR MAGNESIUM DEFICIENCY 10) VANICREAM TOP CREAM APPLY THIN LAYER TOPICALLY EVERY ACTIVE DAY FOR DRY SKIN, IDEALLY WITHIN 3 MINUTES AFTER BATH OR SHOWER. Active Non-VA Medications Status 1) Non-VA ACETAMINOPHEN 325MG TAB 325MG MOUTH EVERY 6 ACTIVE HOURS NEEDED 17 Total Medications 19 Total Medications /es/ Ada Schneider MD Primary Care Staff Physician Signed: 10/09/2023 18:09 10/09/2023 ADDENDUM STATUS: COMPLETED Please connect with nurse at [facility] (Linda Aranda tyson) [phone] Reviewed the med list from [facility] # Medication rec discrepancies [facility] list Amlodipine 10mg take 1/2 tab daily Atorvastatin 20mg take 1/2 tab daily Current med list Amlodipine 5mg take 1 tab daily Atorvastatin 10mg take 1 tab daily Please clarify if he's actually taking 1 tab or 1/2 tab and strength. # Regarding referral to [facility] Primary care. .... should expect call from [facility]. Provided them with Linda's name to facilitate - patient's due for blood work. I would recommend that be done after he transfers to community primary care. /angelita/ Ada Schneider MD Primary Care Staff Physician Signed: 10/09/2023 18:15 Receipt Acknowledged By: 10/12/2023 09:14 /es/ JEREMIAH MORALEZ BRAIDER SETTER 10/12/2023 ADDENDUM STATUS: COMPLETED Alerting CC PCP JUAN Mancilla as an FYI. /es/ Hamida Montero RN machine maintenance technician Mill Attendant Signed: 10/12/2023 10:52 Receipt Acknowledged By: 10/12/2023 11:05 /es/ MICHELLE HERNANDEZ, JUAN Registered Nurse, [facility] for JEREMIAH WHITAKER [facility] Oct 09, 2023 06:09 PM ADDENDUM: LOCAL TITLE: Addendum STANDARD TITLE: ADDENDUM DATE OF NOTE: OCT 09, 2023@18:09:11 ENTRY DATE: OCT 09, 2023@18:09:12 AUTHOR: ADA SCHNEIDER EXP COSIGNER: URGENCY: STATUS: COMPLETED Please connect with nurse at [facility] (Linda trotterraabelardo) [phone] Reviewed the med list from [facility] # Medication rec discrepancies [facility] list Amlodipine 10mg take 1/2 tab daily Atorvastatin 20mg take 1/2 tab daily Current med list Amlodipine 5mg take 1 tab daily Atorvastatin 10mg take 1 tab daily Please clarify if he's actually taking 1 tab or 1/2 tab and strength. # Regarding referral to [facility] Primary care. .... should expect call from [facility]. Provided them with Linda's name to facilitate - patient's due for blood work. I would recommend that be done after he transfers to community primary care. /angelita/ Ada Schneider MD Primary Care Staff Physician Signed: 10/09/2023 18:15 Receipt Acknowledged By: 10/12/2023 09:14 /es/ JEREMIAH MORALEZ RN BSN --- Original Document --- 10/09/23 MEDICINE CLINIC NOTE: ############################ ############### [facility] PRIMARY CARE CLINIC NOTE (PACT [place]) Patient verbally consented to video appointment. No connection problems. Patient's address: home address on file Emergency: see contacts on file ############################ ################ Total time spent on patient care including chart/diagnostic/test review, patient interview/examination, ordering medications/tests, interpreting results,and counseling/documentation was 45 minutes. Combined: Problem-based HPI/Exam/Assessment/Plan and Instructions to Patient ############################ ######################### [facility] Visit Special/follow up notes: 10/09/23 14:00 Patient was seen at [facility] with asistance from Linda Aranda. Until he fell, patient was able to do more self care. After the arm fracture, had trouble wiping himself and needed increased help. He's not able to go to [place] alone and has been needing staff to go with him. Ability to get care near home would be advantageous. able to eat on his own. able to stand up on his own. able to ambulate but not steady and need walker Exam: GEN - Alert, awake, no distress. Frail HEENT- no obvious deformities/trauma UE's - able to raise arms above head LE's - able to stand up and walk on his own; stooped over posture. # labs -due for labs; defer to new [facility] primary care; prefer [facility] physicians at [facility] # Medication rec discrepancies [facility] list Amlodipine 10mg take 1/2 tab daily Atorvastatin 20mg take 1/2 tab daily Current med list Amlodipine 5mg take 1 tab daily Atorvastatin 10mg take 1 tab daily # Walker/rollator - [facility] assist [facility] # L distal humerus fx - was seen by ortho. d/c'ed from sling/brace/OT. # HTN/HLD - controlled continue with current medications. # leg swelling improved after starting lasix # HFpEF TTE EF 60 to 65% 08/2019, mild cLVH; suspect dCHF - c/w amlodipine, atorvastatin, furosemide, lisinopril. - c/w magnesium # Gout - stable c/w allopurinol 100mg # DM controlled c/w empagliflozin # PAD present; significant RLE. control risk factors ---- Unmodified Notes from Previous A/P for continuity ---- # R 4th digit gouty lesion -resolved. # CKD stable 1.8->1.9->2 # cognitive issues mild - [facility] 12/2021 # involuntary tongue movement (tard dy?)- monitor # B12 deficiency - supplement needed, improve diet # RHCM Vax - declines vaccine SHx - quit smoking > 15 yrs ago, no etoh Preventive screening - reports prev done ~ 5yrs w/o significant findings. d/c screening due to age Adv directive - per postings No data available Adv directive - per postings Stable conditions ATYPICAL PSYCHOSIS 100% SC Reviewed available labs/scans today as appropriate. Med/Surg/Fam/Soc Hx: Reviewed and updated as needed in problem list. Nursing notes reviewed. CC in nursing note/HPI. Updated Problem List as needed re past med/surg/fam/social history. RTC - routine f/u appt in 6-12 m (1yr for co-mged pts). Instructed patient to follow up sooner than discussed / per recall if any new concerns or worsening of symptoms. //////////////////////////// //////////////////////////// ///////////// Last Vitals: Temp: 97.5 F [36.4 C] (09/28/2023 10:33) Resp: 16 (09/28/2023 10:33) Pulse: 95 (09/28/2023 10:40) Pain: 0 (09/28/2023 10:33) Osat 95% (09/28/2023 10:33) Measurement DT BP 09/28/2023 10:40 120/67 09/28/2023 10:33 152/91 07/30/2023 10:27 127/85 Measurement DT WEIGHT LB(KG)[BMI] 07/30/2023 10:27 162.8(73.84)[26] 01/15/2022 10:06 177(80.29)[30*] 07/18/2021 10:06 173.6(78.74)[29*] //////////////////////////// //////////////////////////// ///////////// Labs/tests: see below. See A/P for relevant discussion. See CPRS problem list for any relevant external results PROBLEM LIST (see CPRS for any updates done during the visit) --------- Active problems - Computerized Problem List is the source for the followin. Mood disorder (SNOMED CT 36083934) 2. Hypertension (SNOMED CT 69462436) 3. Bipolar, Manic Full Rem 4. Idiopathic fecal incontinence 5. Chronic kidney disease stage 3 6. Diabetes Mellitus Type 2 ([facility] [id number]) - prev dx. a1c >6.5 prev. now controlled ?(no med) 7. Diastolic heart failure LAB/TEST DATA See CPRS problem list for any additional external results --------- PSA - NONE FOUND HGB - NONE FOUND Collection DT Spec HGBA1C 09/25/2022 12:33 BLOOD 5.5 01/15/2022 09:23 BLOOD 6.2 H 07/18/2021 09:45 BLOOD 5.7 CREATININE - NONE FOUND TSH ____ LDL CALCULATION____ SLT - Lab Tests Selected Collection DT Specimen Test Name Result Units Ref Range 12/14/2020 10:05 PLASMA!! LDL CALCULATION 65 mg/dL Ref: <= 99 !! Indicates COMMENTS AVAILABLE...Refer to Interim Lab Report. MEASURED LDL____ No data available Measurement DT BP 09/28/2023 10:40 120/67 09/28/2023 10:33 152/91 07/30/2023 10:27 127/85 Measurement DT WEIGHT LB(KG)[BMI] 07/30/2023 10:27 162.8(73.84)[26] 01/15/2022 10:06 177(80.29)[30*] 07/18/2021 10:06 173.6(78.74)[29*] Patient was informed of available lab, imaging, and other study results noted and/or associated with today's visit. Completed medication reconciliation during the visit and updated medication list in CPRS. Provided patient/caregiver regarding any changes and possible side effects, interactions, contraindications and precautions. Patient/caregiver asked to contact clinic with any questions or concerns. Discussed plan of care with patient/caregiver and instructed to contact clinic for any questions/clarifications. Discussed the importance of seeking care NICK if any changes/worsening of symptoms, or if any new/concerning symptoms. Patient/caregiver voice understanding of above and no further questions. -------- Medication Reconciliation: Education Evaluations *Was medication education provided for NEW medications or CHANGES to medications? (including medication name, dose, route, reason for use, and potential side effects). Yes. Verbal education was provided to patient/caregiver and patient/caregiver verbalized understanding. TERATOGENIC MED & CONTRACEPTION REVIEW (Optional)... === MEDICATION RECONCILIATION === List Given: An updated medication list was provided to the patient/caregiver. Review Done: The medication list shown below [...] may not display in CPRS. Use JLV Allergies: Patient has answered NKA For most uptodate list reflecting medication changes from today's visit, please see Meds Tab or the active orders section. Active and Recently Outpatient Medications (including Supplies): Active Outpatient Medications Status 1) ALLOPURINOL 100MG TAB TAKE ONE TABLET BY MOUTH EVERY ACTIVE DAY FOR GOUT PREVENTION 2) AMLODIPINE BESYLATE 5MG TAB TAKE ONE TABLET BY MOUTH ACTIVE AT BEDTIME FOR BLOOD PRESSURE 3) ATORVASTATIN CALCIUM 10MG TAB TAKE ONE TABLET BY ACTIVE MOUTH AT BEDTIME FOR CHOLESTEROL 4) BRIEF,TRANQUILITY YUNIOR OVERNITE MED#2115 USE BRIEF ACTIVE DIRECTED 5) CYANOCOBALAMIN 1000MCG [...] MOUTH ACTIVE EVERY DAY FOR MAGNESIUM DEFICIENCY 10) VANICREAM TOP CREAM APPLY THIN LAYER TOPICALLY EVERY ACTIVE DAY FOR DRY SKIN, IDEALLY WITHIN 3 MINUTES AFTER BATH OR SHOWER. Active Non-VA Medications Status 1) Non-VA ACETAMINOPHEN 325MG TAB 325MG MOUTH EVERY 6 ACTIVE HOURS NEEDED 17 Total Medications 19 Total Medications /es/ Ada Schneider MD Primary Care Staff Physician Signed: 10/09/2023 18:09 10/12/2023 ADDENDUM STATUS: UNSIGNED You may not VIEW this UNSIGNED Addendum. ADA SCHNEIDER [facility] Oct 09, 2023 01:56 PM INTERNAL MEDICINE OUTPATIENT NOTE: LOCAL TITLE: MEDICINE CLINIC NURSING NOTE STANDARD TITLE: INTERNAL MEDICINE OUTPATIENT NOTE DATE OF NOTE: OCT 09, 2023@13:56 ENTRY DATE: OCT 09, 2023@13:56:09 AUTHOR: TINY CISNEROS COSIGNER: URGENCY: STATUS: COMPLETED TYPE OF VISIT: Telemedicine Check In Type of appointment: C Appointment Patient's identity verified using two identifiers. Patient Contact Details: Best contact number for backup/emergency communication with patient: Patient Location/Surroundings During Visit: Patient location during visit: Home [address], [place] [address] Patient confirms location is safe and private for visit. Visit conducted by synchronous telehealth. Patient verbal consent for [place] Video Connect visit obtained. Location/emergency number confirmed. *Environment surveyed and all participants identified. Virtual conference room locked. REASON FOR VISIT: DISCUSS HEALTH CARE PLAN ALLERGIES: Patient has answered NKA VITAL SIGNS: Blood Pressure: 120/67 (09/28/2023 10:40) Pulse: 95 (09/28/2023 10:40) Respiration: 16 (09/28/2023 10:33) Temperature: 97.5 F [36.4 C] (09/28/2023 10:33) Weight: 162.8 lb [73.84 kg] (07/30/2023 10:27) Height: 67 in [170.2 cm] (07/30/2023 10:27) BMI: 25.6 O2 Sat: 95% (09/28/2023 10:33) Pain: 0 (09/28/2023 10:33) PAIN SCREEN: Patient is not having significant pain that they wish to discuss with their provider today. Influenza Immunization: The patient declines to receive the recommended dose of seasonal influenza vaccine. Immunization: INFLUENZA, UNSPECIFIED FORMULATION Refusal Reason: PATIENT DECISION Patient refuses all immunization(s) in the FLU group Date Documented: 10/09/23 13:57 /angelita/ TINY CISNEROS [employer] CLINICAL INTEGRATION MANAGER Signed: 10/09/2023 13:[address] [facility] Oct 09, 2023 07:48 AM INTERNAL MEDICINE NOTE: LOCAL TITLE: MEDICINE CLINIC NOTE STANDARD TITLE: INTERNAL MEDICINE NOTE DATE OF NOTE: OCT 09, 2023@07:48 ENTRY DATE: OCT 09, 2023@07:48:50 AUTHOR: ADA SCHNEIDER EXP COSIGNER: URGENCY: STATUS: COMPLETED MEDICINE CLINIC NOTE Has ADDENDA ############################ ############### [facility] PRIMARY CARE CLINIC NOTE (PACT [place]) Patient verbally consented to video appointment. No connection problems. Patient's address: home address on file Emergency: see contacts on file ############################ ################ Total time spent on patient care including chart/diagnostic/test review, patient interview/examination, ordering medications/tests, interpreting results,and counseling/documentation was 45 minutes. Combined: Problem-based HPI/Exam/Assessment/Plan and Instructions to Patient ############################ ######################### [facility] Visit Special/follow up notes: 10/09/23 14:00 Patient was seen at [facility] with asistance from Linda Aranda. Until he fell, patient was able to do more self care. After the arm fracture, had trouble wiping himself and needed increased help. He's not able to go to [place] alone and has been needing staff to go with him. Ability to get care near home would be advantageous. able to eat on his own. able to stand up on his own. able to ambulate but not steady and need walker Exam: GEN - Alert, awake, no distress. Frail HEENT- no obvious deformities/trauma UE's - able to raise arms above head LE's - able to stand up and walk on his own; stooped over posture. # labs -due for labs; defer to new [facility] primary care; prefer [facility] physicians at [facility] # Medication rec discrepancies [facility] list Amlodipine 10mg take 1/2 tab daily Atorvastatin 20mg take 1/2 tab daily Current med list Amlodipine 5mg take 1 tab daily Atorvastatin 10mg take 1 tab daily # Walker/rollator - [facility] will assist [facility] # L distal humerus fx - was seen by ortho. d/c'ed from sling/brace/OT. # HTN/HLD - controlled continue with current medications. # leg swelling improved after starting lasix # HFpEF TTE EF 60 to 65% 08/2019, mild cLVH; suspect dCHF - c/w amlodipine, atorvastatin, furosemide, lisinopril. - c/w magnesium # Gout - stable c/w allopurinol 100mg # DM controlled c/w empagliflozin # PAD present; significant RLE. control risk factors ---- Unmodified Notes from Previous A/P for continuity ---- # R 4th digit gouty lesion -resolved. # CKD stable 1.8->1.9->2 # cognitive issues mild - [facility] 12/2021 # involuntary tongue movement (tard dy?)- monitor # B12 deficiency - supplement needed, improve diet # RHCM Vax - declines vaccine SHx - quit smoking > 15 yrs ago, no etoh Preventive screening - reports prev done ~ 5yrs w/o significant findings. d/c screening due to age Adv directive - per postings No data available Adv directive - per postings Stable conditions ATYPICAL PSYCHOSIS 100% SC Reviewed available labs/scans today as appropriate. Med/Surg/Fam/Soc Hx: Reviewed and updated as needed in problem list. Nursing notes reviewed. CC in nursing note/HPI. Updated Problem List as needed re past med/surg/fam/social history. RTC - routine f/u appt in 6-12 m (1yr for co-mged pts). Instructed patient to follow up sooner than discussed / per recall if any new concerns or worsening of symptoms. //////////////////////////// //////////////////////////// ///////////// Last Vitals: Temp: 97.5 F [36.4 C] (09/28/2023 10:33) Resp: 16 (09/28/2023 10:33) Pulse: 95 (09/28/2023 10:40) Pain: 0 (09/28/2023 10:33) Osat 95% (09/28/2023 10:33) Measurement DT BP 09/28/2023 10:40 120/67 09/28/2023 10:33 152/91 07/30/2023 10:27 127/85 Measurement DT WEIGHT LB(KG)[BMI] 07/30/2023 10:27 162.8(73.84)[26] 01/15/2022 10:06 177(80.29)[30*] 07/18/2021 10:06 173.6(78.74)[29*] //////////////////////////// //////////////////////////// ///////////// Labs/tests: see below. See A/P for relevant discussion. See CPRS problem list for any relevant external results PROBLEM LIST (see CPRS for any updates done during the visit) --------- Active problems - Computerized Problem List is the source for the followin. Mood disorder (SNOMED CT 70630755) 2. Hypertension (SNOMED CT 34226205) 3. Bipolar, Manic Full Rem 4. Idiopathic fecal incontinence 5. Chronic kidney disease stage 3 6. Diabetes Mellitus Type 2 ([facility] 50207308) - prev dx. a1c >6.5 prev. now controlled ?(no med) 7. Diastolic heart failure LAB/TEST DATA See CPRS problem list for any additional external results --------- PSA - NONE FOUND HGB - NONE FOUND Collection DT Spec HGBA1C 09/25/2022 12:33 BLOOD 5.5 01/15/2022 09:23 BLOOD 6.2 H 07/18/2021 09:45 BLOOD 5.7 CREATININE - NONE FOUND TSH ____ LDL CALCULATION____ SLT - Lab Tests Selected Collection DT Specimen Test Name Result Units Ref Range 12/14/2020 10:05 PLASMA!! LDL CALCULATION 65 mg/dL Ref: <= 99 !! Indicates COMMENTS AVAILABLE...Refer to Interim Lab Report. MEASURED LDL____ No data available Measurement DT BP 09/28/2023 10:40 120/67 09/28/2023 10:33 152/91 07/30/2023 10:27 127/85 Measurement DT WEIGHT LB(KG)[BMI] 07/30/2023 10:27 162.8(73.84)[26] 01/15/2022 10:06 177(80.29)[30*] 07/18/2021 10:06 173.6(78.74)[29*] Patient was informed of available lab, imaging, and other study results noted and/or associated with today's visit. Completed medication reconciliation during the visit and updated medication list in CPRS. Provided patient/caregiver regarding any changes and possible side effects, interactions, contraindications and precautions. Patient/caregiver asked to contact clinic with any questions or concerns. Discussed plan of care with patient/caregiver and instructed to contact clinic for any questions/clarifications. Discussed the importance of seeking care NICK if any changes/worsening of symptoms, or if any new/concerning symptoms. Patient/caregiver voice understanding of above and no further questions. -------- Medication Reconciliation: Education Evaluations *Was medication education provided for NEW medications or CHANGES to medications? (including medication name, dose, route, reason for use, and potential side effects). Yes. Verbal education was provided to patient/caregiver and patient/caregiver verbalized understanding. TERATOGENIC MED & CONTRACEPTION REVIEW (Optional)... === MEDICATION RECONCILIATION === List Given: An updated medication list was provided to the patient/caregiver. Review Done: The medication list shown below [...] may not display in CPRS. Use JLV Allergies: Patient has answered NKA For most uptodate list reflecting medication changes from today's visit, please see Meds Tab or the active orders section. Active and Recently Outpatient Medications (including Supplies): Active Outpatient Medications Status 1) ALLOPURINOL 100MG TAB TAKE ONE TABLET BY MOUTH EVERY ACTIVE DAY FOR GOUT PREVENTION 2) AMLODIPINE BESYLATE 5MG TAB TAKE ONE TABLET BY MOUTH ACTIVE AT BEDTIME FOR BLOOD PRESSURE 3) ATORVASTATIN CALCIUM 10MG TAB TAKE ONE TABLET BY ACTIVE MOUTH AT BEDTIME FOR CHOLESTEROL 4) BRIEF,TRANQUILITY YUNIOR OVERNITE MED#2115 USE BRIEF ACTIVE DIRECTED 5) CYANOCOBALAMIN 1000MCG [...] MOUTH ACTIVE EVERY DAY FOR MAGNESIUM DEFICIENCY 10) VANICREAM TOP CREAM APPLY THIN LAYER TOPICALLY EVERY ACTIVE DAY FOR DRY SKIN, IDEALLY WITHIN 3 MINUTES AFTER BATH OR SHOWER. Active Non-VA Medications Status 1) Non-VA ACETAMINOPHEN 325MG TAB 325MG MOUTH EVERY 6 ACTIVE HOURS NEEDED 17 Total Medications 19 Total Medications /es/ Ada Schneider MD Primary Care Staff Physician Signed: 10/09/2023 18:09 10/09/2023 ADDENDUM STATUS: COMPLETED Please connect with nurse at [facility] (Linda mehta) [phone] Reviewed the med list from [facility] # Medication rec discrepancies [facility] list Amlodipine 10mg take 1/2 tab daily Atorvastatin 20mg take 1/2 tab daily Current med list Amlodipine 5mg take 1 tab daily Atorvastatin 10mg take 1 tab daily Please clarify if he's actually taking 1 tab or 1/2 tab and strength. # Regarding referral to [facility] Primary care. .... should expect call from [facility]. Provided them with Linda's name to facilitate - patient's due for blood work. I would recommend that be done after he transfers to community primary care. /es/ dAa Schneider MD Primary Care Staff Physician Signed: 10/09/2023 18:15 Receipt Acknowledged By: 10/12/2023 09:14 /es/ JEREMIAH MORALEZ RN BSN 10/12/2023 ADDENDUM STATUS: COMPLETED [facility] contacted and Linda Aranda out of office this week. This insurance underwriter spoke with Nursing Staff and they clarified below is what he is taking at [facility]: ANT list Amlodipine 10mg take 1/2 tab daily Atorvastatin 20mg take 1/2 tab daily [facility] did get in contact with them today and this insurance underwriter also reviewed that needed lab work should be completed by [facility] physician. They verbalized understanding and will communicate this to Primary Care office. Will addend PCP for awareness and [facility] RN. /angelita/ JEREMIAH MORALEZ BRAIDER SETTER Signed: 10/12/2023 09:16 Receipt Acknowledged By: 10/12/2023 10:50 /es/ Hamida Montero RN machine maintenance technician Mill Attendant * AWAITING SIGNATURE * ADA SCHNEIDER 10/12/2023 ADDENDUM STATUS: COMPLETED Alerting [facility] PCP RN Jana Mancilla as an FYI. /angelita/ Hamida Montero RN machine maintenance technician Mill Attendant Signed: 10/12/2023 10:52 Receipt Acknowledged By: * AWAITING SIGNATURE * JANA MANCILLA HELEN TANG [facility]
--- OUTSIDE RECORDS SUMMARY | 2024-10-05 13:14 | XMS_ITS | CCD ---
Author Organization Unknown Care Team Providers Care Maintenance Man Name Role Phone [place] Iain STEWARD Primary Care Provider Sofia vailable Unavailable Chronic Care Management Unavaila ble Summary Purpose DataExchange Insurance Providers Payer name Policy type / Coverage type Covered alliance party ID Effective Begin Date Effective End Date [facility] Administration Plan [id number] Unknown Unknown Family History Family History data not found Allergies, Adverse Reactions, Alerts Substance Reaction Codes Entered Date Inactivated Date Status NO KNOWN DRUG ALLERGIES Unknown 12/04/2023 No In active Date Active Problems Condition Codes Effective Dates Condition St atus Stage 4 chronic kidney disease ICD-10: N 18.4 ICD-9: 585.4 07/11/2024 Active Deformity of toe of right foot ICD-10: M 20.61 ICD-9: 735.9 06/29/2024 Active 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 ICD-10: E11.51 ICD-9: 250.70 06/29/2024 Active Stage 3b chronic kidney disease ICD-10: N18.32 ICD-9: 585.3 06/29/2024 Active Chronic diastolic congestive heart failure ICD-10: [...] Fill Instructions furosemide 20 mg tablet RxNorm: 726758 Take 1 Tablet(s) Oral QD 08/11/19 Active amlodipine 10 mg tablet RxNorm: 147063 Take 1/2 Tablet(s) Oral QD 08/11/19 Active atorvastatin 10 mg tablet RxNorm: 098093 Take 1 Tablet(s) Oral HS at bed time 08/11/19 Active atorvastatin 10 mg tablet RxNorm: 983177 Take 1 Tablet(s) Oral HS at bed time 08/11/19 025 Inactive cephalexin 500 mg tablet RxNorm: 367251 Tablet(s) Oral Take 1 tablet PO BID for 7 days for soft tissue infection of toe. 06/07/20 024 Inactive cephalexin 500 mg tablet RxNorm: 587436 Tablet(s) Oral Take 1 tablet PO BID for 7 days for soft tissue infection of toe. 06/07/20 24 024 Inactive Vitamin D3 25 mcg (1,000 unit) tablet RxNorm: 040676 Take 1 Tablet(s) Oral QOD every other day 04/27/20 24 025 Active Vitamin D3 25 mcg (1,000 unit) tablet RxNorm: 670876 Take 1 Tablet(s) Oral QOD every other day 04/27/20 24 024 Inactive cholecalciferol (vitamin D3) 1,250 mcg (50,000 unit) capsule RxNorm: 435481 Take 1 Capsule(s) Oral QD 12/28/19 24 024 Inactive cholecalciferol (vitamin D3) 1,250 mcg (50,000 unit) capsule RxNorm: 580882 Take 1 Capsule(s) Oral QW once a week for 8 weeks 12/28/19 24 024 Inactive hydrocodone 5 mg-acetaminophen 325 mg tablet RxNorm: 028767 Take 1 Tablet(s) Oral Q4-6H every 4-6 hours 12/24/19 24 025 Inactive Jardiance 25 mg tablet RxNorm: 9854660 Take 1/2 Tablet(s) Oral QD 12/24/19 24 025 Inactive lisinopril 40 mg tablet RxNorm: 195467 Take 1 Tablet(s) Oral QD 12/24/19 24 No Stop Date Active Tussin Cough (DM only) 15 mg/5 mL oral liquid RxNorm: 2083376 Take 5-10 Milliliter(s) Oral Q4-6H every 4-6 hours as needed 12/24/19 24 No Stop Date Active A and D (alirio, pet) topical ointment RxNorm: Take 1 Gram(s) Topical QD 12/24/19 24 No Stop Date Active Milk of Magnesia 400 mg/5 mL oral suspension RxNorm: 847875 Take 15-30 Milliliter(s) Oral QD as needed 12/24/19 24 No Stop Date Active amlodipine 10 mg tablet RxNorm: 604021 Take 1/2 Tablet(s) Oral QD 12/24/19 24 025 Inactive allopurinol 100 mg tablet RxNorm: 041058 Take 1 Tablet(s) Oral QD 12/24/19 24 No Stop Date Active cyanocobalamin (vit B-12) 1,000 mcg tablet RxNorm: 127546 Take 1 Tablet(s) Oral QD 12/24/19 24 No Stop Date Active acetaminophen 325 mg tablet RxNorm: 701151 Take 1-2 Tablet(s) Oral Q4-6H every 4-6 hours as needed 12/24/19 24 No Stop Date Active loperamide 2 mg tablet RxNorm: 609203 Take 1 Tablet(s) Oral QD as needed 12/24/19 24 No Stop Date Active magnesium oxide 420 mg tablet RxNorm: 844938 Take 1 Tablet(s) Oral QD 12/24/19 24 No Stop Date Active Antacid 200 mg-200 mg-20 mg/5 mL oral suspension RxNorm: 257883 Take 5-10 Milliliter(s) Oral QD as needed 12/24/19 24 No Stop Date Active diclofenac 1 % topical gel RxNorm: 698162 Apply 4 Gram(s) Topical QID 12/24/19 24 No Stop Date Active Senna-S 8.6 mg-50 mg tablet RxNorm: 898285 Take 1 Tablet(s) Oral QD as needed 12/24/19 24 No Stop Date Active furosemide 20 mg tablet RxNorm: 011662 Take 1 Tablet(s) Oral QD 12/24/19 24 025 Inactive Antacid 200 mg (as calcium carboante 500 mg) chewable tablet RxNorm: 783215 Take 1 Tablet(s) Oral QD 12/24/19 24 No Stop Date Active atorvastatin 20 mg tablet RxNorm: 090362 Take 1 Tablet(s) Oral QD 12/24/19 24 025 Inactive Medication Administered No Medication Administered data Reason For Visit No Reason For Visit data Plan of Care Planned Activity Notes Codes Status Date Referral: [facility]- Nephrology WPtel: [address] [place], [place] [id number] Referral Records Received 08/23/2024 Instructions Comment Date New patient to [facility] .. PMH: DM2, peripheral neuropathy, gout, PVD, CHF (diasoltic. HfpEF ALISON EF 60-65% 2.2021), CKD (stage 3), mood disorder, bipolar manic full remission, mild cognitive impairmentSpecialty care providers: Podiatry (10.28.2023 Leonardo Willoughby - follow up in 3-4 months)Labs: December/JuneJune: CBC w/ diff, BMP, A1c, TSH, VitD, [...]
--- OUTSIDE RECORDS SUMMARY | 2024-10-05 13:14 | XMS_ITS | CCD ---
Author Organization Unknown Care Team Providers Care Preventive Medicine Physician Name Role Phone Clau Iain STEWARD Primary Care Provider Sofia vailable Unavailable Chronic Care Management Unavaila ble Summary Purpose DataExchange Insurance Providers Payer name Policy type / Coverage type Covered republican ID Effective Begin Date Effective End Date [facility] Administration Plan [id number] Unknown Unknown Family History Family History data [...] Start Date Stop Date Status Fill Instructions cholecalciferol (vitamin D3) 1,250 mcg (50,000 unit) capsule RxNorm: 952410 Take 1 Capsule(s) Oral QD 12/28/19 24 024 Inactive cholecalciferol (vitamin D3) 1,250 mcg (50,000 unit) capsule RxNorm: 891408 Take 1 Capsule(s) Oral QW once a week for 8 weeks 12/28/19 24 024 Inactive hydrocodone 5 mg-acetaminophen 325 mg tablet RxNorm: 805016 Take 1 Tablet(s) Oral Q4-6H every 4-6 hours 12/24/19 24 025 Inactive Jardiance 25 mg tablet RxNorm: 7052556 Take 1/2 Tablet(s) Oral QD 12/24/19 24 No Stop Date Active lisinopril 40 mg tablet RxNorm: 210862 Take 1 Tablet(s) Oral QD 12/24/19 24 No Stop Date Active Tussin Cough (DM only) 15 mg/5 mL oral liquid RxNorm: 2889690 Take 5-10 Milliliter(s) Oral Q4-6H every 4-6 hours as needed 12/24/19 24 No Stop Date Active A and D (alirio, pet) topical ointment RxNorm: Take 1 Gram(s) Topical QD 12/24/19 24 No Stop Date Active Milk of Magnesia 400 mg/5 mL oral suspension RxNorm: 682868 Take 15-30 Milliliter(s) Oral QD as needed 12/24/19 24 No Stop Date Active amlodipine 10 mg tablet RxNorm: 520052 Take 1/2 Tablet(s) Oral QD 12/24/19 24 No Stop Date Active allopurinol 100 mg tablet RxNorm: 262818 Take 1 Tablet(s) Oral QD 12/24/19 24 No Stop Date Active cyanocobalamin (vit B-12) 1,000 mcg tablet RxNorm: 361531 Take 1 Tablet(s) Oral QD 12/24/19 24 No Stop Date Active atorvastatin 20 mg tablet RxNorm: 036843 Take 1 Tablet(s) Oral QD 12/24/19 24 No Stop Date Active acetaminophen 325 mg tablet RxNorm: 088273 Take 1-2 Tablet(s) Oral Q4-6H every 4-6 hours as needed 12/24/19 24 No Stop Date Active loperamide 2 mg tablet RxNorm: 761036 Take 1 Tablet(s) Oral QD as needed 12/24/19 24 No Stop Date Active magnesium oxide 420 mg tablet RxNorm: 572505 Take 1 Tablet(s) Oral QD 12/24/19 24 No Stop Date Active Antacid 200 mg-200 mg-20 mg/5 mL oral suspension RxNorm: 681921 Take 5-10 Milliliter(s) Oral QD as needed 12/24/19 24 No Stop Date Active diclofenac 1 % topical gel RxNorm: 641321 Apply 4 Gram(s) Topical QID 12/24/19 24 No Stop Date Active Senna-S 8.6 mg-50 mg tablet RxNorm: 300014 Take 1 Tablet(s) Oral QD as needed 12/24/19 24 No Stop Date Active furosemide 20 mg tablet RxNorm: 425309 Take 1 Tablet(s) Oral QD 12/24/19 24 No Stop Date Active Antacid 200 mg (as calcium carboante 500 mg) chewable tablet RxNorm: 776138 Take 1 Tablet(s) Oral QD 12/24/19 24 No Stop Date Active Medication Administered No Medication Administered data Reason For Visit No Reason For Visit data Plan of Care Planned Activity Notes Codes Status Date Referral: [facility]- Nephrology WPtel: [address] [place], [place] [id number] Referral Appointment Scheduled 08/23/2024 Instructions Comment Date New patient to [facility] 6.. PMH: DM2, peripheral neuropathy, gout, [...]
--- OUTSIDE RECORDS SUMMARY | 2024-10-05 13:15 | XMS_ITS | CCD ---
Author Name Chana Tirado Address [address] [place] [address] Phone Organization [facility] Phone Care Team Providers Care Brokerage Branch Manager Name Role Phone Iain Tirado Primary Care Provider Sofia vailable Unavailable Chronic Care Management Unavaila ble Summary Purpose DataExchange Insurance Providers Payer name Policy type / Covera ge type Covered republican ID Effective Begin Date Effective End Date [facility] [id number] Unknown Unknown Family History Family History data not found Allergies, Adverse Reactions, Alerts Substance Reaction Codes Entered Date Inactivated Date Status NO KNOWN DRUG ALLERGIES Unknown 12/04/2023 No In active Date Active Problems Condition Codes Effective Dates Condition St atus Chronic diastolic congestive heart failure ICD-10: I50.32 ICD-9: 428.32 03/02/2024 Active Stage 3b chronic kidney disease ICD-10: N18.32 ICD-9: 585.3 03/02/2024 Active Type 2 diabetes mellitus wit h stage 3b chronic kidney disease, without long-term current use of insulin ICD-10: E11.22 ICD-9: 250.40 03/02/2024 Active 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 ICD-10: E55.9 ICD-9: 268.9 03/02/2024 Active Chronic kidney disease, stag e [...] D3) 1,250 mcg (50,000 unit) capsule RxNorm: 095443 Take 1 Capsule(s) Oral QD 12/28/19 24 024 Inactive cholecalciferol (vitamin D3) 1,250 mcg (50,000 unit) capsule RxNorm: 724821 Take 1 Capsule(s) Oral QW once a week for 8 weeks 12/28/19 24 024 Inactive hydrocodone 5 mg-acetaminophen 325 mg tablet RxNorm: 124619 Take 1 Tablet(s) Oral Q4-6H every 4-6 hours 12/24/19 24 025 Active Jardiance 25 mg tablet RxNorm: 2152057 Take 1/2 Tablet(s) Oral QD 12/24/19 24 No Stop Date Active lisinopril 40 mg tablet RxNorm: 390126 Take 1 Tablet(s) Oral QD 12/24/19 24 No Stop Date Active Tussin Cough (DM only) 15 mg/5 mL oral liquid RxNorm: 3597258 Take 5-10 Milliliter(s) Oral Q4-6H every 4-6 hours as needed 12/24/19 24 No Stop Date Active A and D (alirio, pet) topical ointment RxNorm: Take 1 Gram(s) Topical QD 12/24/19 24 No Stop Date Active Milk of Magnesia 400 mg/5 mL oral suspension RxNorm: 116959 Take 15-30 Milliliter(s) Oral QD as needed 12/24/19 24 No Stop Date Active amlodipine 10 mg tablet RxNorm: 078112 Take 1/2 Tablet(s) Oral QD 12/24/19 24 No Stop Date Active allopurinol 100 mg tablet RxNorm: 819245 Take 1 Tablet(s) Oral QD 12/24/19 24 No Stop Date Active cyanocobalamin (vit B-12) 1,000 mcg tablet RxNorm: 468162 Take 1 Tablet(s) Oral QD 12/24/19 24 No Stop Date Active atorvastatin 20 mg tablet RxNorm: 212062 Take 1 Tablet(s) Oral QD 12/24/19 24 No Stop Date Active acetaminophen 325 mg tablet RxNorm: 442883 Take 1-2 Tablet(s) Oral Q4-6H every 4-6 hours as needed 12/24/19 24 No Stop Date Active loperamide 2 mg tablet RxNorm: 334639 Take 1 Tablet(s) Oral QD as needed 12/24/19 24 No Stop Date Active magnesium oxide 420 mg tablet RxNorm: 924454 Take 1 Tablet(s) Oral QD 12/24/19 24 No Stop Date Active Antacid 200 mg-200 mg-20 mg/5 mL oral suspension RxNorm: 606172 Take 5-10 Milliliter(s) Oral QD as needed 12/24/19 24 No Stop Date Active diclofenac 1 % topical gel RxNorm: 085169 Apply 4 Gram(s) Topical QID 12/24/19 24 No Stop Date Active Senna-S 8.6 mg-50 mg tablet RxNorm: 107618 Take 1 Tablet(s) Oral QD as needed 12/24/19 24 No Stop Date Active furosemide 20 mg tablet RxNorm: 226860 Take 1 Tablet(s) Oral QD 12/24/19 24 No Stop Date Active Antacid 200 mg (as calcium carboante 500 mg) chewable tablet RxNorm: 245481 Take 1 Tablet(s) Oral QD 12/24/19 24 No Stop Date Active Medication Administered No Medication Administered data Vital Signs Date Vital 03/02/2024 Blood Pressure 1: 114/70 Code: 8480-6 Heart Rate 1: 71 bpm Code: 8867-4 Respiratory Rate: 16 bpm Temperature: 36.7 (C) / 98.0 (F) Weight: 161 lbs 4 oz Code: 3141-9 Reason For Visit No Reason For Visit data Encounters Encounter Performer Location Location Address Codes Date ([address]) Home or Residence Visit Est Pt - Moderate Level, 40 mins Diagnosis: Type 2 diabetes mellitus with stage 3b chronic kidney disease, without long-term current use of insulin[ICD10: E11.22] Diagnosis: Stage 3b chronic kidney disease[ICD10: N18.32] Diagnosis: 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[ICD10: E55.9] Diagnosis: Chronic diastolic congestive heart failure[ICD10: I50.32] Iain Olguin [address] [address] CPT-4: 15551 03/02/2024 Plan of Care Planned Activity Notes Codes Status Date Patient Education: Patient Medication Summary Completed 03/02/2024 Patient Education: Influenza Complet ed 03/02/2024 Care Plan: Vitamin D, 25-Hydroxy Pen ding 03/02/2024 Instructions Comment Date New patient to [facility] 6.. PMH: DM2, peripheral neuropathy, gout, PVD, [...] HDL 26.1L, LDL 69, trigs 294H, VLDL 59. 02/28/2024 Chronic diastolic congestive heart failure Diastolic HF, ALISON with EF 60-65% in 2021. Is not following with cardiology. Weight is stable. No exacerbation since last visit. Lab work reviewed. Continue: Amlodipine 5 mg QD. Furosemide 20 mg QD. Lisinopril 40 mg QD. And Jardiance 12.5 mg QD. Stage 3b chronic kidney disease Lab work ordered at last visit. Lab work results reviewed today with Maikel. : BMP BUN 19, creat 1.77H, eGFR 38.59L, K 3.7, Na 142, BG 94. A1c 5.6 Control BP as appropriate for age, risk for falls, and life expectancy. Avoid nephrotoxic medications. Renal dose medications as appropriate. Type 2 diabetes mellitus with stage 3b chronic kidney disease, without long-term current use of insulin Does not check BG. Currently taking: Jardiance 12.5 mg PO QD (also for CHF). Lab work ordered at last visit and results reviewed with Maikel today. 12.26.2023 -- CBC HGB 14.6 PLT 241, BMP BUN 19, creat 1.77H, eGFR 38.59L, K 3.7, Na 142, BG 94. A1c 5.6. TSH 3.19. VitD9L, VITB12 412, Mg 1.9. Lipid total chol 154, HDL 26.1L, LDL 69, trigs 294H, VLDL 59 Control BP as appropriate for age, risk for falls, and life expectancy. Avoid nephrotoxic medications. Renal dose medications as appropriate. 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 : Vitamin D (9) LOW Vitamin D supplementation started after lab work results reviewed. Vitamin D3 50,000 units (1250 mcg) PO once weekly for 8 weeks. Today PCP will order vitamin D lab work for follow up/re-check and determine if high dose supplementation is still needed or if a maintenance dose is warranted. . 03/02/2024
--- OUTSIDE RECORDS SUMMARY | 2024-10-05 13:15 | XMS_ITS | CCD ---
Author Name Chana Tirado Address [address] [place] [address] Phone Organization [facility] Phone Care Team Providers Care Destaticizer Feeder Name Role Phone Iain Tirado Primary Care Provider Sofia vailable Unavailable Chronic Care Management Unavaila ble Summary Purpose DataExchange Insurance Providers Payer name Policy type / Coverage type Covered libertarian ID Effective Begin Date Effective End Date [facility] Administration Plan [id number] Unknown Unknown Family History Family History data not found Allergies, Adverse Reactions, Alerts Substance Reaction Codes Entered Date Inactivated Date Status NO KNOWN DRUG ALLERGIES Unknown 12/04/2023 No In active Date Active Problems Condition Codes Effective Dates Condition St atus Deformity of toe of right foot ICD-10: [...] Start Date Stop Date Status Fill Instructions cephalexin 500 mg tablet RxNorm: 810484 Tablet(s) Oral Take 1 tablet PO BID for 7 days for soft tissue infection of toe. 06/07/20 024 Inactive cephalexin 500 mg tablet RxNorm: 413905 Tablet(s) Oral Take 1 tablet PO BID for 7 days for soft tissue infection of toe. 06/07/20 24 024 Inactive Vitamin D3 25 mcg (1,000 unit) tablet RxNorm: 086451 Take 1 Tablet(s) Oral QOD every other day 04/27/20 24 025 Active Vitamin D3 25 mcg (1,000 unit) tablet RxNorm: 823051 Take 1 Tablet(s) Oral QOD every other day 04/27/20 24 024 Inactive cholecalciferol (vitamin D3) 1,250 mcg (50,000 unit) capsule RxNorm: 711042 Take 1 Capsule(s) Oral QD 12/28/19 24 024 Inactive cholecalciferol (vitamin D3) 1,250 mcg (50,000 unit) capsule RxNorm: 343614 Take 1 Capsule(s) Oral QW once a week for 8 weeks 12/28/19 24 024 Inactive hydrocodone 5 mg-acetaminophen 325 mg tablet RxNorm: 794242 Take 1 Tablet(s) Oral Q4-6H every 4-6 hours 12/24/19 24 025 Inactive Jardiance 25 mg tablet RxNorm: 0988324 Take 1/2 Tablet(s) Oral QD 12/24/19 24 No Stop Date Active lisinopril 40 mg tablet RxNorm: 331830 Take 1 Tablet(s) Oral QD 12/24/19 24 No Stop Date Active Tussin Cough (DM only) 15 mg/5 mL oral liquid RxNorm: 5925145 Take 5-10 Milliliter(s) Oral Q4-6H every 4-6 hours as needed 12/24/19 24 No Stop Date Active A and D (alirio, pet) topical ointment RxNorm: Take 1 Gram(s) Topical QD 12/24/19 24 No Stop Date Active Milk of Magnesia 400 mg/5 mL oral suspension RxNorm: 901498 Take 15-30 Milliliter(s) Oral QD as needed 12/24/19 24 No Stop Date Active amlodipine 10 mg tablet RxNorm: 278842 Take 1/2 Tablet(s) Oral QD 12/24/19 24 No Stop Date Active allopurinol 100 mg tablet RxNorm: 065610 Take 1 Tablet(s) Oral QD 12/24/19 24 No Stop Date Active cyanocobalamin (vit B-12) 1,000 mcg tablet RxNorm: 770698 Take 1 Tablet(s) Oral QD 12/24/19 24 No Stop Date Active atorvastatin 20 mg tablet RxNorm: 156266 Take 1 Tablet(s) Oral QD 12/24/19 24 No Stop Date Active acetaminophen 325 mg tablet RxNorm: 940823 Take 1-2 Tablet(s) Oral Q4-6H every 4-6 hours as needed 12/24/19 24 No Stop Date Active loperamide 2 mg tablet RxNorm: 826665 Take 1 Tablet(s) Oral QD as needed 12/24/19 24 No Stop Date Active magnesium oxide 420 mg tablet RxNorm: 920396 Take 1 Tablet(s) Oral QD 12/24/19 24 No Stop Date Active Antacid 200 mg-200 mg-20 mg/5 mL oral suspension RxNorm: 115316 Take 5-10 Milliliter(s) Oral QD as needed 12/24/19 24 No Stop Date Active diclofenac 1 % topical gel RxNorm: 823440 Apply 4 Gram(s) Topical QID 12/24/19 24 No Stop Date Active Senna-S 8.6 mg-50 mg tablet RxNorm: 810098 Take 1 Tablet(s) Oral QD as needed 12/24/19 24 No Stop Date Active furosemide 20 mg tablet RxNorm: 988086 Take 1 Tablet(s) Oral QD 12/24/19 24 No Stop Date Active Antacid 200 mg (as calcium carboante 500 mg) chewable tablet RxNorm: 860719 Take 1 Tablet(s) Oral QD 12/24/19 24 No Stop Date Active Medication Administered No Medication Administered data Procedures Procedure Codes Date SYST BP LT 130 MM HG CPT-4: 3074F 06/29/2024 DIAST BP 80-89 MM HG CPT-4: 3079F 06/29/2024 Vital Signs Date Vital 06/29/2024 Blood Pressure 1: 122/86 Code: 8480-6 BMI: NaN Code: 69228-7 Heart Rate 1: 72 bpm Code: 8867-4 SpO2: 96% Weight: 168 lbs 2 oz Code: 3141-9 Reason For Visit No Reason For Visit data Encounters Encounter Performer Location Location Address Codes Date ([address]14) Home or Residence Visit Est Pt - Moderate Level, 40 mins Diagnosis: Stage 3b chronic kidney disease[ICD10: N18.32] Diagnosis: 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[ICD10: E11.51] Diagnosis: Deformity of toe of right foot[ICD10: M20.61] [address] [address] CPT-4: 25820 06/29/2024 Plan of Care Planned Activity Notes Codes Status Date [facility] [address] [facility] [id number] [place] Referral Appointment Scheduled 08/23/2024 Instructions Comment Date [...] 53. *change to maintenance vitamin D. 04/24/2024 Stage 3b chronic kidney dise ase Will place follow up BMP orders today. Creatinine 1.77 eGFR 38.59 Control BP as appropriate for age, risk for falls, and life expectancy. Avoid nephrotoxic medications. Renal dose medications as appropriate. 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 No open skin. Significantly decreased sensation to his bilateral feet. Following with podiatry - follow up appointment next week Thursday. Encourage physical activity as able, elevating of his legs when sitting, and to monitor closely for skin breakdown. Deformity of toe of right foot 4th toe Antibiotic course completed for what appeared to be cellulitis; improvement but did not resolve. No pain, no drainage, no open skin. Slightly redness/pink remains. Does not appear to be a gout flare. Considered x-ray although has follow up with his manager of finance next week Thursday and with no acute progression we will not make any changes to plan of care today and allow podiatry to assess and make recommendation next week. Monitor for worsening redness, swelling, pain, drainage, other discoloration. . 06/29/2024
--- OUTSIDE RECORDS SUMMARY | 2024-10-05 13:16 | XMS_ITS | CCD ---
Author Name Chana Tirado Address [address] [place] [address] Phone Organization [facility] Phone Care Team Providers Care Chief Operator Lock Tender Name Role Phone Iain Tirado Primary Care Provider Sofia vailable Unavailable Chronic Care Management Unavaila ble Summary Purpose DataExchange Insurance Providers Payer name Policy type / Coverage type Covered alliance party ID Effective Begin Date Effective End Date [facility] Administration Plan [id number] Unknown Unknown Family History Family History data [...] Fill Instructions cephalexin 500 mg tablet RxNorm: 225794 Tablet(s) Oral Take 1 tablet PO BID for 7 days for soft tissue infection of toe. 06/07/20 024 Inactive cephalexin 500 mg tablet RxNorm: 209303 Tablet(s) Oral Take 1 tablet PO BID for 7 days for soft tissue infection of toe. 06/07/20 024 Inactive Vitamin D3 25 mcg (1,000 unit) tablet RxNorm: 724066 Take 1 Tablet(s) Oral QOD every other day 04/27/20 24 025 Active Vitamin D3 25 mcg (1,000 unit) tablet RxNorm: 109663 Take 1 Tablet(s) Oral QOD every other day 04/27/20 24 024 Inactive cholecalciferol (vitamin D3) 1,250 mcg (50,000 unit) capsule RxNorm: 812114 Take 1 Capsule(s) Oral QD 12/28/19 24 024 Inactive cholecalciferol (vitamin D3) 1,250 mcg (50,000 unit) capsule RxNorm: 065348 Take 1 Capsule(s) Oral QW once a week for 8 weeks 12/28/19 24 024 Inactive hydrocodone 5 mg-acetaminophen 325 mg tablet RxNorm: 584081 Take 1 Tablet(s) Oral Q4-6H every 4-6 hours 12/24/19 24 025 Inactive Jardiance 25 mg tablet RxNorm: 3603241 Take 1/2 Tablet(s) Oral QD 12/24/19 24 No Stop Date Active lisinopril 40 mg tablet RxNorm: 096587 Take 1 Tablet(s) Oral QD 12/24/19 24 No Stop Date Active Tussin Cough (DM only) 15 mg/5 mL oral liquid RxNorm: 0551562 Take 5-10 Milliliter(s) Oral Q4-6H every 4-6 hours as needed 12/24/19 24 No Stop Date Active A and D (alirio, pet) topical ointment RxNorm: Take 1 Gram(s) Topical QD 12/24/19 24 No Stop Date Active Milk of Magnesia 400 mg/5 mL oral suspension RxNorm: 268895 Take 15-30 Milliliter(s) Oral QD as needed 12/24/19 24 No Stop Date Active amlodipine 10 mg tablet RxNorm: 983379 Take 1/2 Tablet(s) Oral QD 12/24/19 24 No Stop Date Active allopurinol 100 mg tablet RxNorm: 221251 Take 1 Tablet(s) Oral QD 12/24/19 24 No Stop Date Active cyanocobalamin (vit B-12) 1,000 mcg tablet RxNorm: 818021 Take 1 Tablet(s) Oral QD 12/24/19 24 No Stop Date Active atorvastatin 20 mg tablet RxNorm: 577276 Take 1 Tablet(s) Oral QD 12/24/19 24 No Stop Date Active acetaminophen 325 mg tablet RxNorm: 303588 Take 1-2 Tablet(s) Oral Q4-6H every 4-6 hours as needed 12/24/19 24 No Stop Date Active loperamide 2 mg tablet RxNorm: 150040 Take 1 Tablet(s) Oral QD as needed 12/24/19 24 No Stop Date Active magnesium oxide 420 mg tablet RxNorm: 106502 Take 1 Tablet(s) Oral QD 12/24/19 24 No Stop Date Active Antacid 200 mg-200 mg-20 mg/5 mL oral suspension RxNorm: 479428 Take 5-10 Milliliter(s) Oral QD as needed 12/24/19 24 No Stop Date Active diclofenac 1 % topical gel RxNorm: 842433 Apply 4 Gram(s) Topical QID 12/24/19 24 No Stop Date Active Senna-S 8.6 mg-50 mg tablet RxNorm: 724853 Take 1 Tablet(s) Oral QD as needed 12/24/19 24 No Stop Date Active furosemide 20 mg tablet RxNorm: 113045 Take 1 Tablet(s) Oral QD 12/24/19 24 No Stop Date Active Antacid 200 mg (as calcium carboante 500 mg) chewable tablet RxNorm: 202258 Take 1 Tablet(s) Oral QD 12/24/19 24 No Stop Date Active Medication Administered No Medication Administered data Reason For Visit No Reason For Visit data Plan of Care Planned Activity Notes Codes Status Date Referral: [facility] [address] [id number] [facility] Appointment Scheduled 08/23/2024 Patient Education: Patient M edication Summary Completed 07/11/2024 Instructions Comment Date New patient to [facility] 6.5. PMH: DM2, peripheral neuropathy, gout, PVD, CHF (diasoltic. HfpEF ALISON EF 60-65% ), CKD (stage 3), mood disorder, bipolar manic [...]
--- OUTSIDE RECORDS SUMMARY | 2024-10-05 13:16 | XMS_ITS | CCD ---
Author Organization Unknown Care Team Providers Care Mammal Keeper Name Role Phone Clau Iain STEWARD Primary Care Provider Sofia vailable Unavailable Chronic Care Management Unavaila ble Summary Purpose DataExchange Insurance Providers Payer name Policy type / Coverage type Covered democrat ID Effective Begin Date Effective End Date [facility] Administration Plan [id number] Unknown Unknown Family History Family History data [...] Fill Instructions cephalexin 500 mg tablet RxNorm: 043762 Tablet(s) Oral Take 1 tablet PO BID for 7 days for soft tissue infection of toe. 06/07/20 24 024 Inactive cephalexin 500 mg tablet RxNorm: 739496 Tablet(s) Oral Take 1 tablet PO BID for 7 days for soft tissue infection of toe. 06/07/20 24 024 Inactive Vitamin D3 25 mcg (1,000 unit) tablet RxNorm: 995038 Take 1 Tablet(s) Oral QOD every other day 04/27/20 24 025 Active Vitamin D3 25 mcg (1,000 unit) tablet RxNorm: 928271 Take 1 Tablet(s) Oral QOD every other day 04/27/20 24 024 Inactive cholecalciferol (vitamin D3) 1,250 mcg (50,000 unit) capsule RxNorm: 523733 Take 1 Capsule(s) Oral QD 12/28/19 24 024 Inactive cholecalciferol (vitamin D3) 1,250 mcg (50,000 unit) capsule RxNorm: 529101 Take 1 Capsule(s) Oral QW once a week for 8 weeks 12/28/19 24 024 Inactive hydrocodone 5 mg-acetaminophen 325 mg tablet RxNorm: 511146 Take 1 Tablet(s) Oral Q4-6H every 4-6 hours 12/24/19 24 025 Inactive Jardiance 25 mg tablet RxNorm: 7964056 Take 1/2 Tablet(s) Oral QD 12/24/19 24 No Stop Date Active lisinopril 40 mg tablet RxNorm: 331732 Take 1 Tablet(s) Oral QD 12/24/19 24 No Stop Date Active Tussin Cough (DM only) 15 mg/5 mL oral liquid RxNorm: 1181313 Take 5-10 Milliliter(s) Oral Q4-6H every 4-6 hours as needed 12/24/19 24 No Stop Date Active A and D (alirio, pet) topical ointment RxNorm: Take 1 Gram(s) Topical QD 12/24/19 24 No Stop Date Active Milk of Magnesia 400 mg/5 mL oral suspension RxNorm: 075602 Take 15-30 Milliliter(s) Oral QD as needed 12/24/19 24 No Stop Date Active amlodipine 10 mg tablet RxNorm: 727205 Take 1/2 Tablet(s) Oral QD 12/24/19 24 No Stop Date Active allopurinol 100 mg tablet RxNorm: 679315 Take 1 Tablet(s) Oral QD 12/24/19 24 No Stop Date Active cyanocobalamin (vit B-12) 1,000 mcg tablet RxNorm: 477454 Take 1 Tablet(s) Oral QD 12/24/19 24 No Stop Date Active atorvastatin 20 mg tablet RxNorm: 674543 Take 1 Tablet(s) Oral QD 12/24/19 24 No Stop Date Active acetaminophen 325 mg tablet RxNorm: 743666 Take 1-2 Tablet(s) Oral Q4-6H every 4-6 hours as needed 12/24/19 24 No Stop Date Active loperamide 2 mg tablet RxNorm: 768754 Take 1 Tablet(s) Oral QD as needed 12/24/19 24 No Stop Date Active magnesium oxide 420 mg tablet RxNorm: 392757 Take 1 Tablet(s) Oral QD 12/24/19 24 No Stop Date Active Antacid 200 mg-200 mg-20 mg/5 mL oral suspension RxNorm: 331782 Take 5-10 Milliliter(s) Oral QD as needed 12/24/19 24 No Stop Date Active diclofenac 1 % topical gel RxNorm: 183608 Apply 4 Gram(s) Topical QID 12/24/19 24 No Stop Date Active Senna-S 8.6 mg-50 mg tablet RxNorm: 052890 Take 1 Tablet(s) Oral QD as needed 12/24/19 24 No Stop Date Active furosemide 20 mg tablet RxNorm: 406857 Take 1 Tablet(s) Oral QD 12/24/19 24 No Stop Date Active Antacid 200 mg (as calcium carboante 500 mg) chewable tablet RxNorm: 296345 Take 1 Tablet(s) Oral QD 12/24/19 24 No Stop Date Active Medication Administered No Medication Administered data Reason For Visit No Reason For Visit data Plan of Care Planned Activity Notes Codes Status Date Referral: [facility]- Nephrology WPtel: [address] [place], [place] [phone] [place] Referral Appointment Scheduled 08/23/2024 Instructions Comment [...]
--- OUTSIDE RECORDS SUMMARY | 2024-10-05 13:17 | XMS_ITS | Encounter Summary ---
Author Name [facility] Organization [facility] Address [address] [place] [address] Care Team Providers Care Fire Range Technician Name Role Phone ANAEVELYN KRISHNAN Primary Care Provider Unavailabl e Insurance Providers: [...] PART A May 20, 2009 PART A [id number] [phone] KE ORDOÑEZ EdyDELVIN PATIENT MEDICARE (WNR) MEDICARE (M) PART A May 20, 2009 PART A [id number] [phone] KE ORDOÑEZ PATIENT Selected Encounter This section includes the information on record at [place] for the Encounter. Date/Time Encounter Type Encounter Description Reason Provider Source Oct 22, 2023 02:30 PM SELF CARE MNGMENT TRAINING PHYSICAL THERAPY ICD-10-CM R26.89 Other abnormalities of gait and mobility TINY GUERRERO [facility] Encounter Template Text not used by [place] Assessments - Encounter Diagnoses This section includes the primary and secondary diagnoses documented for the Encounter. Date/Time Primary/Secondary Diagnosis Diagnosis Name Provider Source Oct 22, 2023 02:49 PM PRIMARY Other abnormalities of gait and mobility TINY GUERRERO [facility] Plan of Treatment: Future Appointments (+ 6 months) and Future Tests (+/- 45 days) The Plan of Treatment section includes future care activities for the patient from [facility] This section includes future appointments and future orders which are active, pending or scheduled. Future Appointments This section includes appointments that were scheduled to occur 6 months from the date of the Encounter, up to a maximum of 20 appointments. The data comes from all [facility]. Appointment Date/Time Appointment Type Appointme nt Facility Name Oct 28, 2023 02:00 PM AMBULATORY - SURGERY ALFA APOLIS [facility] Dec 23, 2023 07:01 AM [facility] Active, Pending, and Scheduled Orders This section includes a listing of several types of active, pending, and scheduled orders, including clinic medications orders, diagnostic test orders, procedure orders and consult orders; where the start date of the order is 45 days before the date of the Encounter or 45 days after the date of theEncounter. The data comes from all [facility]. Test Date/Time Test Type Test Details Facility Name Sep 28, 2023 12:00 AM Laboratory - Chemi stry Order ALBUMIN/CREATININE RATIO URINE URINE SP ONCE [facility] Social History: Smoking Status (Most current) and Tobacco Use (All prior to encounter date) This section includes the most current, and the historical, smoking and tobacco- related health factors from the [place] facility where the Encounter took place. Current Smoking Status This section includes the most current smoking, or tobacco-related health factor, from the [place] facility where the Encounter took place. Date/Time Current Smoking Status Comment Facil ity Jul 30, 2023 10:30 AM VA-TOBACCO FORMER USER [facility] Tobacco Use History This section includes a history of the smoking, or tobacco-related health factors, that were collected on or before the date of the Encounter. The data comes from the [place] facility where the Encounter took place. Date/Time Smoking Status/Tobacco Use Comment F acility Jul 30, 2023 10:30 AM VA-TOBACCO QUIT 5 TO < 15 YRS [facility] Jan 15, 2022 11:00 AM VA-TOBACCO FORMER USER [facility] Jan 15, 2022 11:00 AM PA-TOBACCO QUIT 15 YRS OR MORE [facility] December 14, 2020 01:30 PM VA-TOBACCO FORMER USER [facility] December 14, 2020 01:30 PM PA-TOBACCO QUIT 5 TO < 15 YRS [facility] Aug 19, 2019 11:35 AM VA-TOBACCO FORMER USER [facility] Aug 19, 2019 11:35 AM VA-TOBACCO QUIT 15 YRS OR MORE [facility] Aug 27, 2018 11:54 AM VA-TOBACCO DOESNT USE WI 30 MIN WAKEUP [facility] Aug 27, 2018 11:54 AM VA-TOBACCO USE 5 TO 15 YEARS [facility] Aug 27, 2018 11:54 AM VA-TOBACCO USE ADVICE [facility] Aug 27, 2018 11:54 AM VA-TOBACCO USE DIRECTOR DIETETICS DEPARTMENT NO [facility] Aug 27, 2018 11:54 AM VA-TOBACCO USE MED NO [facility] Aug 27, 2018 11:54 AM VA-TOBACCO USER SOME DAYS [facility] Dec 24, 2016 12:51 PM FORMER TOBACCO USER 7Y OR GREATE R [facility] Sep 12, 2015 09:12 AM FORMER TOBACCO USE >1Y <7Y [facility] Sep 05, 2014 10:04 AM LIFETIME NON-TOBACCO USER [facility] Aug 25, 2014 09:45 AM FORMER TOBACCO USE >1Y <7Y [facility] Aug 03, 2014 06:11 PM FORMER TOBACCO USER 7Y OR GREATE R [facility] Aug 03, 2014 02:50 PM LIFETIME NON-TOBACCO USER [facility] Aug 01, 2014 11:24 AM FORMER TOBACCO USE >1Y <7Y [facility] Mar 07, 2013 08:45 AM FORMER TOBACCO USE >1Y <7Y [facility] Oct 17, 2009 07:56 AM CURRENT TOBACCO USER [facility] Sep 01, 2006 09:04 AM CURRENT TOBACCO USER [facility] Sep 01, 2006 09:04 AM FORMER TOBACCO USER 7Y OR GREATE R [facility] Advance Directives: All historical and current Section Date Range: From patient's date of to the date document was created. This section includes ALL of a patient's completed or amended [place] Advance and Rescinded Directives. The entries below indicate that a directive exists for the patient, but an actual copy is not included with this document. The data comes from all [place] facilities. Date Advance Directives Provider Source Sep 06, 2014 CLINICAL WARNING TOYIN COTA [facility] Aug 05, 2014 CLINICAL WARNING ROEL MERCER IS [facility] Aug 01, 2014 CLINICAL WARNING ALETA MAZARIEGOS IS [facility] Jul 28, 2007 ADVANCE DIRECTIVE CATY ADORNO IS [facility] Radiology Reports: +/- 30 days of the [...] the Encounter. The data comes from all [place] treatment facilities. Date/Time Radiology Report Provider Source Oct 05, 2023 09:24 AM ELBOW LEFT 3 OR MO RE VIEWS: IMAN ORDOÑEZ [id number] Exm Date: OCT 05, 2023@09:24 Req Phys: SCOUT FRYE Pat Loc: [facility] (Req'g Loc) Img Loc: MAIN X-RAY Service: Unknown (Case [id number] COMPLETE) ELBOW LEFT 3 OR MORE VIEWS (RAD Detailed) CPT:91317 Reason for Study: L distal humerus fx, please obtain XR out of splint Clinical History: Report Status: Verified Date Reported: OCT 05, 2023 Date Verified: OCT 05, 2023 Inside Sales Representative E-Sig:/ES/RASHEED CORCORAN MD, FACR, CCD Report: EXAMINATION: [...] Staff: RASHEED CORCORAN MD, FACR, STAFF RADIOLOGIST (Inside Sales Representative) /BSRASHEED RODNEY [facility] Encounter Notes: All associated encounter notes This section contains the clinical notes associated to the Encounter. Date/Time Encounter Note(s) Provider Source Oct 22, 2023 06:15 AM PHYSICAL THERAPY I NITIAL EVALUATION NOTE: LOCAL TITLE: PT-EVALUATION NOTE STANDARD TITLE: PHYSICAL THERAPY INITIAL EVALUATION NOTE DATE OF NOTE: OCT 22, 2023@06:15 ENTRY DATE: OCT 22, 2023@06:15:48 AUTHOR: TINY GUERRERO COSIGNER: URGENCY: STATUS: COMPLETED Patient seen on Oct via [facility] for a Brief Physical Therapy Evaluation for Equipment Provision for 18 minutes. Telehealth Consent/Disclosure Visit conducted by [facility]. [place] verbal consent obtained. Location/emergency number confirmed. Environment surveyed and all participants idendified. Virtual conference room locked. Telehealth visit conducted using: __ VA issued tablet _x_ Other: The following was verified with pt: - Pt's identity (Name and last 4 of SSN) - Consent to care through telerehabilitation - Emergency number and location in event of emergency - Phone number in case of technological failure - Pt is in a safe and private location - Consent for others in the room, 2 staff members at his facility were in attendance - Provider locked virtual medical room Emergency Use Only- e911 Instructions Call [phone] to speak with an agent who can put you in touch with a short filler bunch machine operator at the patient's location. You must have the physical location (address) where the patient is currently located. Troubleshooting performed for telehealth visit: none Suicide Screen Clinical Reminder Due: No Treatment provided: PT eval: 9 min, SCHM x9 min Referring Provider: PSDS Dx: other abnormalities of gait/mobility Active problems - Computerized Problem List is the source for the followin. Mood disorder (SNOMED CT 57681932) 2. Hypertension (SNOMED CT 56605822) 3. Bipolar, Manic Full Rem 4. Idiopathic fecal incontinence 5. Chronic kidney disease stage 3 6. Diabetes Mellitus Type 2 ([facility] 04806331) - prev dx. a1c >6.5 prev. now controlled ?(no med) 7. Diastolic heart failure Weight/Height for DME purposes: 162.8 lb [73.84 kg] (07/30/2023 10:27) 67 in [170.2 cm] (07/30/2023 10:27) SUBJECTIVE: Pt is a 78 y/o with difficulty walking referred to Telemedicine PT for an assistive device for gait. Pt is requesting a walker. Pt fell a couple months ago and broke his arm which he recovered from. However, he fell again a couple weeks ago but did not injure himself. He currently has a MWC and SEC. His walker got misplaced so is in need of a new one. The 2 staff members feels he would be safe using a rollator. He fatigues quickly when walking and feel his needs would best be met with a rollator rather than a 2WW. He started PT yesterday. Pt Goal: get a walker Pain: none Falls: 2 falls over the past 12 months Home Environment: lives alone in an [facility] Prior Level of Function: no AD prior to the fall 2 months ago Red Flags: No personal history of cancer. Denies any UE or LE progressive weakness, unexplained weight loss, loss of bowel/bladder control, pain with rest, fevers, chills, infections. OBJECTIVE: OBSERVATION: FUNCTIONAL STRENGTH SCREEN: 5 TIMES SIT TO STAND: 16 seconds Age Related Norms. MCID: 2.3 seconds 70-79 y/o: 12.6 seconds BALANCE: Four Stage Balance Test: (older adults unable to maintain Tandem 10' are at increased risk for falls) Romber sec Modified Tandem: 10 sec Tandem: unable to get into position -- Pt educated on assistive device options with recommendation for: ROLLATOR: Pt is appropriate for rollator. Education and demonstration provided regarding proper rollator use using shared screen. Pt was able to demonstrate understanding in each after appropriate education provided: -Adjusting rollator once received from prosthetics -Ambulation -Brakes -Curb assist -Sitting on rollator to rest with rollator against stationary object. -Not utilizing rollator for mobility via scooting with LE's -Transfers -Folding to load into vehicle Patient Education of Treatment Plan: Pt indicates readiness to learn,verbalizes understanding, agreement and satisfaction with the treatment plan. Denies further questions. ASSESSMENT: Pt is a 78 y/o with difficulty walking requesting assistive device for gait. Patient presents with impairments in activity tolerance and stability leading to functional limitations in gait. Pt appropriate for rollator due to above limitations. Pt/caregiver educated on appropriate set up and use of device. Pt/caregiver demonstrates understanding of safe and appropriate use of device. Pt denies questions, no f/u required. Equipment consults placed: standard nitro rollator PT eval is moderate complexity and clinical presentation is evolving. Rehab prognosis: good Limitations to assessment: none Participation in life: limited in community mobility Response to tx intervention: Pt tolerated assessment without adverse effect. GOAL: Pt/caregiver will demonstrate understanding of appropriate and safe set up and use of assistive device in order to increase safety and decrease falls risk with ambulation. MET PLAN: Patient has met PT goals and no further skilled PT planned at this time. /angelita/ TINY GUERRERO DPT PHYSICAL THERAPIST Signed: 10/22/2023 14:49 TINY GUERRERO [facility]
--- OUTSIDE RECORDS SUMMARY | 2024-10-05 13:17 | XMS_ITS ---
Author Organization [facility] Care Team Providers Care Construction Teacher Name Role Phone Christianne Rosas Unavailable Unavailable RenettaLj Unavailable Unavailable Allergies and adverse reactions No Known Allergies Care Team Name Role Address Phone Organization Dates Lj Jackson PCP Genevive [address], [address], [place], [address], [facility] (Office): [facility] 08/25/2014 - 09/05/2014 Christianne Rosas Attending Physician [facility] [address], [place], [address], [place] (Office): : [facility] 08/25/2014 - 09/05/2014 Immunizations Immunization Status Vaccine Details Vaccine Code CodeSystem Date Notes TB 2 Step Mantoux Skin Test completed tuberculin skin test; unspecified formulation lotNumber: [id number] expiry: 11/17/2015 Mfg: [employer] Given 0.1 ml Right Forearm intradermally Step 1 of Multi-step with next step required 98 CVX created date: 08/26/2014 consent date: 08/26/2014 administer ed date: 08/26/2014 Educated by Mary Arboleda RN on 08/26/2014 Mental Status Section Date Assessment Total Score Description 09/05/2014 BIMS 15 cognitively int act PHQ-9 00 09/01/2014 BIMS 14 cognitively int act PHQ-9 00 Reason for Referral No Reasons for Referral Entered Social History Social History Observation Description Start Date End Date Code Code System Current Smoking Status Tobacco smoking consumption unknown 651087590 SNOMED CT Sex Assigned At Male 1945 60417-9 [facility] Vital Signs Code Code System Vitals Name Values and Units Timing Information 8310-5 LOINC Body Temperature Value=97.7 Units= F 09/04/2014 9279-1 LOINC Respiratory Rate Value=17.0 Units=/m in 09/04/2014 62225-8 LOINC Weight Mjokv=170.4 Units=Lbs 8462-4 LOINC Blood Pressure-Diastolic Value=70 Un its=mmHg 09/04/2014 8480-6 LOINC Blood Pressure-Systolic Sqakb=550 Un its=mmHg 09/04/2014 8867-4 LOINC Heart rate Value=93.0 Units=/min 92990-8 [facility] Pain Level Value=0.0 08/31/2014 30057-1 [facility] O2 % BldC Oximetry Value=95.0 Units= % 08/29/2014 8302-2 [facility] Height Value=63.0 Units=Inches 08/26/2014
--- OUTSIDE RECORDS SUMMARY | 2024-10-05 13:17 | XMS_ITS | Continuity of Care Document ---
Author Name [facility] Organization [facility] Care Team Providers Care Manager Strategic Partnerships Name Role Phone [facility] Unavailable Unavailable Problems Combined list of problems from Department of Defense and [facility] Affairs facilities. It does not include entries that were removed or entered in error. Problem Status Onset Date Problem Type Date of Resolution Comments Source Bipolar, Manic Full Rem Active Condition [facility] Chronic kidney disease stage 3 Active Condition [facility] Diabetes Mellitus Type 2 ([facility] 14188137) Active Condition May 01, 2020 Entered By: DARA PELLETIER Comment: prev dx. a1c >6.5 prev. now controlled ?(no med) [facility] Diastolic heart failure Active Condition [facility] Hypertension (SNOMED CT 27522070) Active Condition [facility] Idiopathic fecal incontinence Active Condition [facility] Mood disorder (SNOMED CT 64300992) Active Condition [facility] Alcoh Depend, in Remis Inactive Condition 12/24/2016 [facility] Alcoh Dependence, Unsp Inactive Condition 12/24/2016 [facility] Cannabis Depen,in Remis Inactive Condition 12/24/2016 [facility] CHRON PERIODONTITIS,GE N Inactive Condition 12/24/2016 [facility] Cocaine Depend, unspec Inactive Condition 12/24/2016 [facility] [place], Pulmonary * (ICD-9-CM 793.1) Inactive Condition 12/24/2016 [facility] COPD Inactive Condition 12/24/2016 [facility] Dyslipidemia (ICD-9-CM 272.4) Inactive Condition 12/24/2016 [facility] Elevated blood pressure reading without diagnosis of hypertension (ICD-9-CM 796. Inactive Condition 12/24/2016 [facility] GINGIV/PERIODONT DIS NOS Inactive Condition 12/24/2016 [facility] Hand Injury Inactive Condition 12/24/2016 [facility] Nicotine Dependence (ICD-9-CM 305.1) Inactive Condition 12/24/2016 [facility] OVERWEIGHT Inactive Condition 12/24/2016 [facility] Routine General Medical Examination at a Health Care Facility * Inactive Condition 12/24/2016 [facility] Diagnosis: ICD-10-CM N18.9 Chronic kidney disease, unspecified Active Diagnosis [facility] Diagnosis: ICD-10-CM 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 Active Diagnosis [facility] Diagnosis: ICD-10-CM E11.9 Type 2 diabetes mellitus without complications Active Diagnosis [facility] Diagnosis: ICD-10-CM E11.40 Type 2 diabetes mellitus with diabetic neuropathy, unsp Active Diagnosis [facility] Diagnosis: ICD-10-CM R26.89 Other abnormalities of gait and mobility Active Diagnosis [facility] Diagnosis: ICD-10-CM I10 Essential (primary) hypertension Active Diagnosis [facility] Diagnosis: ICD-10-CM Z65.8 Oth problems related to psychosocial circumstances Active Diagnosis [facility] Diagnosis: ICD-10-CM S42.452D Disp fx of lateral condyle of l humer, 7thD Active Diagnosis [facility] Diagnosis: ICD-10-CM S42.452A Disp fx of lateral condyle of left humerus, init for clos fx Active Diagnosis [facility] Diagnosis: ICD-10-CM S42.402A Unsp fracture of lower end of left humerus, init for clos fx Active Diagnosis [facility] Medications Combined list of outpatient medications from Department of Defense and Veterans Affairs facilities.Medications provided include 1) outpatient medications from the last 15 months, and 2) patient-reported medications. Medication Details Route Status Patient Instructions Prescription Expires Prescription Number Last Dispense Date Ordering Provider Order Date Order Qty Source ACETAMINOPH EN 325MG TAB TAKE ONE TABLET BY MOUTH Q6H PRN ORAL ACTIVE [place], EVELYN ALLRED 2023 [facility] ALLOPURINOL 100MG TAB TAKE ONE TABLET BY MOUTH EVERY DAY FOR GOUT PREVENTI ON ORAL ACTIVE 12/07/2024 [id number] [place], EVELYN ALLRED 2023 90 [facility] ALLOPURINOL 100MG TAB TAKE ONE TABLET BY MOUTH EVERY DAY FOR GOUT PREVENTI ON ORAL DISCONT INUED 10/15/2023 [id number] [place], EVELYN ALLRED 2022 90 [facility] AMLODIPINE BESYLATE 5MG TAB TAKE ONE TABLET BY MOUTH AT BEDTIME FOR BLOOD PRESSURE ORAL 08/13/2024 [id number] 4 EVELYN PELLETIER 2023 90 [facility] ATORVASTATI N CA 10MG TAB TAKE ONE TABLET BY MOUTH AT BEDTIME FOR CHOLESTE ROL ORAL 08/13/2024 [id number] 4 [facility] [place] [facility] BACITRACIN 500UNT/GM OINT,TOP APPLY DIRECTED TOPICALL Y EVERY DAY TO PREVENT INFECTIO N TOPICA L 07/14/2024 [id number] Elsie GOMEZ 2023 30 [place] [facility] CYANOCOBALA MIN 1000MCG TAB TAKE ONE TABLET BY MOUTH EVERY DAY FOR VITAMIN B12 DEFICIEN CY ORAL ACTIVE 10/27/2024 [id number] 4 [facility] 2023 100 [place] [facility] CYANOCOBALA MIN 1000MCG TAB TAKE ONE TABLET BY MOUTH EVERY DAY FOR VITAMIN B12 DEFICIEN CY ORAL DISCONT INUED 10/15/2023 [id number] 4 [facility] EMPAGLIFLOZ IN 25MG TAB TAKE ONE-HALF TABLET BY MOUTH EVERY MORNING FOR DIABETES AND KIDNEY. DRINK WATER THROUGHO UT DAY TO STAY HYDRATED . ORAL 02/04/2024 [id number] EVELYN PELLETIER 2022 45 [place] [facility] FUROSEMIDE 20MG TAB TAKE ONE TABLET BY MOUTH EVERY DAY ORAL DISCONT INUED 10/15/2023 [id number] 4 [facility] FUROSEMIDE 20MG TAB TAKE ONE TABLET BY MOUTH EVERY DAY ORAL 08/13/2024 [id number] 4 [facility]23 90 [facility] HYDROCODONE 5MG/ACETAMI NOPHEN 325MG TAB TAKE 1 TABLET BY MOUTH EVERY 4 HOURS NEEDED FOR PAIN ORAL 08/29/2023 [id number] HEIDI VIVAS 2023 12 [facility] LISINOPRIL 40MG TAB TAKE ONE TABLET BY MOUTH EVERY MORNING FOR HIGH BLOOD PRESSURE ORAL ACTIVE 10/27/2024 [id number] 5 [facility] 2023 90 [facility] LISINOPRIL 40MG TAB TAKE ONE TABLET BY MOUTH EVERY MORNING FOR HIGH BLOOD PRESSURE ORAL DISCONT INUED 10/15/2023 [id number] 4 [facility] 2022 90 [facility] MAGNESIUM OXIDE 420MG TAB TAKE ONE TABLET BY MOUTH EVERY DAY FOR MAGNESIU M DEFICIEN CY ORAL ACTIVE 02/03/2025 [id number] 5 [facility] 2023 100 [facility] MAGNESIUM OXIDE 420MG TAB TAKE ONE TABLET BY MOUTH EVERY DAY FOR MAGNESIU M DEFICIEN CY ORAL DISCONT INUED 10/15/2023 [id number] 4 [facility] 2022 100 [facility] REMEDY SKIN CLEANSER SOLN,TOP APPLY TO AFFECTED AREA TOPICALL Y EVERY MORNING FOR WOUND TOPICA L 09/12/2024 [id number] 4 Elsie GOMEZ 2023 240 [facility] VANICREAM APPLY THIN LAYER TOPICALL Y EVERY DAY FOR DRY SKIN, IDEALLY WITHIN 3 MINUTES AFTER BATH OR SHOWER. FOR DRY SKIN, IDEALLY WITHIN 3 MINUTES AFTER BATH OR SHOWER. TOPICA L 09/02/2024 [id number] 4 [facility] 454 [facility] Immunizations Combined list of available immunizations from the Department of Defense and Veterans Affairs facilities. Immunization Series Date Given Administered By Site Reaction Lot Number CVX Code Drug Rn Visiting Status Comments Source PNEUMOCOCCAL POLYSACCHARID E PPV23 2023 CORDELIA PICHARDO RIGHT DELTO ID [id number] 33 complet ed [facility] COVID-19 (MODERNA), MRNA, LNP-S, PF, 50 MCG/0.5 ML (AGES 12+ YEARS) 2022 312 complet ed [facility] COVID-19 (MODERNA), MRNA, LNP-S, BIVALENT, PF, 50 MCG/0.5 ML OR 25MCG/0.25 ML DOSE 2021 229 complet ed [facility] COVID-19 (MODERNA), MRNA, LNP-S, PF, 100 MCG/0.5ML DOSE OR 50 MCG/0.25ML DOSE 4 2021 207 complet ed [facility] PNEUMOCOCCAL CONJUGATE PCV 13 2020 133 complet ed [facility] ZOSTER RECOMBINANT 2 2020 187 complet ed [facility] COVID-19 (MODERNA), MRNA, LNP-S, PF, 100 MCG OR 50 MCG DOSE 3 2020 207 complet ed [facility] COVID-19 (MODERNA), MRNA, LNP-S, PF, 100 MCG/0.5 ML DOSE 2 2020 207 complet ed [facility]ARM[facility] IES COVID-19 (MODERNA), MRNA, LNP-S, PF, 100 MCG/0.5 ML DOSE 1 2020 207 complet ed [facility] ZOSTER RECOMBINANT 1 2018 187 complet ed [facility] TDAP 2017 115 complet ed [employer] TF422 Exp. 9 [facility] TD (ADULT) 2014 138 complet ed [facility] ZOSTER LIVE 2009 121 complet ed x [facility] PNEUMOCOCCAL, UNSPECIFIED FORMULATION 2008 109 complet ed [employer] [id number], 10/05/09 [facility] TD(ADULT) UNSPECIFIED FORMULATION 2000 139 complet ed [facility] TD(ADULT) UNSPECIFIED FORMULATION 1996 139 complet ed [facility] TETANUS TOXOID, UNSPECIFIED FORMULATION 1996 112 complet ed [facility] Encounters Combined list of: 1) Encounters from Department of Veterans Affairs facilities going backup to the last 18 months, not all VA inpatient encounters are included; 2) Encounters from the Department of Defense facilities going backup to 280 months. Location Location Details Encounter Type Encounter Number Reason For Visit Attending Provider ADM Date DC Date Status Disposition Source [facility] En[facility] [id number] 05/04 [facility] [place] [facility] Encounter [id number] 07/28 [facility] [place] [facility] Encounter [id number] Harley SOUTH 07/30 [facility] OFF[facility] O/P EST LOW 20 MIN [id number] Diagnos is: ICD-10- CM S42.402 A Unsp fractur e of lower end of left humerus , init for clos fx MITCHELL VIVAS Sixto 07[facility] En[facility] [id number] 08/05 [facility]P EST MOD 30 MIN [id number] Diagnos is: ICD-10- CM S42.452 A Disp fx of lateral condyle of left humerus , init for clos fx ALDO CONN 08[facility]24 [facility] En[facility] [id number] 09/09 [facility] [place] [facility] Encounter [id number] 09/25 [facility] O[facility]P EST LOW 20 MIN [id number] Diagnos is: ICD-10- CM I10 Essenti al (primar y) hyperte POLINA Tinsley 09/27 [facility] [place] [facility] Encounter [id number] 09/27 [facility]P EST MOD 30 MIN [id number] Diagnos is: ICD-10- CM S42.452 D Disp fx of lateral condyle of l humer, 7thD ALDO CONN A [facility] En[facility] [id number] ANACyndy KRISHNAN ALLRED 10/04 [facility] CASE MANAGEMENT [id number] Diagnos is: ICD-10- CM Z65.8 Oth problem s related to psychos ocial circums OSMANY Francisco 10/05 [facility] [place] [facility] Encounter [id number] 10/07 [facility] OFF[facility] O/P EST HI 40 MIN [id number] Diagnos is: ICD-10- CM I10 Essenti al (primar y) hyperte nsion PRABHUCyndy BRIDGET ALLRED 10/08 [facility] [place] [facility] Out[facility]counter [id number] 10/12 [facility] [place] [facility] Encounter [id number] 10/20 [facility] SELF CARE MNGMENT TRAINING [id number] Diagnos is: ICD-10- CM R26.89 Other abnorma lities of gait and mobilit y SA JONA GUERRERO 10/21 [facility] [place] [facility] Encounter [id number] 10/26 [facility] [place] [facility] Out[facility] Encounter [id number] 10/27 [facility] OFF[facility] O/P EST LOW 20 MIN [id number] Diagnos is: ICD-10- CM E11.40 Type 2 diabete s mellitu s with diabeti c neuropa thy, unsp LATA GOMEZ 10/27 [place] [facility] [place] [facility] Outpatient Encounter [id number] CHINOBREANNAMAREN MERINO 10/27 [place] [facility] [place] [facility] Encounter [id number] 11/05 [place] [facility] [place] [facility] Out[facility] Encounter [id number] 01/25 [place] [facility] [place] [facility] Out[facility] Encounter [id number] 03/02 [place] [facility] [place] [facility] Out[facility] Encounter [id number] Diagnos is: ICD-10- CM E11.9 Type 2 diabete s mellitu s without complic ations HERNAN MUNSON C 03/15 [facility]P EST LOW 20 MIN [id number] Diagnos is: ICD-10- CM E11.43 Type 2 diabete s w diabeti c autonom ic (poly)n europat hy JASON,RY AN M 06/14 [facility] [place] [facility] O/P EST MOD 30 MIN [id number] Diagnos is: ICD-10- CM N18.9 Chronic kidney disease , unspeci ALONDRA Nuñez 07/06 [facility] [place] [facility] Out[facility] Encounter [id number] 07/29 [facility] [place] [facility] Outpatient Encounter [id number] 08/23 [facility] Social History Combined list of available smoking, tobacco, and other social history from Department of Defense and Veterans Affairs facilities. Social History Type Response Date Comment [facility] Tobacco smoking status TXIS VA-TOBACCO FORMER USER 07/30/2023 [place] [facility] History of tobacco use MT-TOBACCO QUIT 5 TO < 15 YRS 07/30/2023 [facility] History of tobacco use MT-TOBACCO FORMER USER 01/15/2022 [facility] History of tobacco use MT-TOBACCO FORMER USER 12/14/2020 [facility] History of tobacco use MT-TOBACCO QUIT 1 5 YRS OR MORE 08/19/2019 [facility] History of tobacco use MT-TOBACCO DOESNT USE WI 30 MIN WAKEUP 08/27/2018 [facility] History of tobacco use FORMER TOBACCO US ER 7Y OR GREATER 12/24/2016 [facility] History of tobacco use FORMER TOBACCO US E >1Y <7Y 09/12/2015 [facility] History of tobacco use LIFETIME NON-TOBA GROUP ROOMS COORDINATOR USER 09/05/2014 [facility] History of tobacco use FORMER TOBACCO US E >1Y <7Y 08/25/2014 [facility] History of tobacco use FORMER TOBACCO US ER 7Y OR GREATER 08/03/2014 [facility] History of tobacco use LIFETIME NON-TOBA GROUP ROOMS COORDINATOR USER 08/03/2014 [facility] History of tobacco use FORMER TOBACCO US E >1Y <7Y 08/01/2014 [facility] History of tobacco use FORMER TOBACCO US E >1Y <7Y 03/07/2013 [facility] History of tobacco use CURRENT TOBACCO USER 10/17/2009 [facility] History of tobacco use CURRENT TOBACCO USER 09/01/2006 [facility] Advance Directives List of completed, amended, or rescinded Advance Directives on record at Department of Veterans Affairs facilities. An actual copy of the Directive is not included. Date Advance Directive Provider Source 09/06/2014 [facility] 08/05/2014 [facility] 08/01/2014 [facility] 07/28/2007 ADVANCE DIRECTIVE [facility]
--- OUTSIDE RECORDS SUMMARY | 2024-10-05 13:17 | XMS_ITS | Encounter Summary ---
Author Name [facility] Organization [facility] Address [address] [place] [address] Care Team Providers Care Chemical Strength Tester Name Role Phone ANAEVELYN KRISHNAN Primary Care [...] PART A May 20, 2009 PART A [id number] [phone] KE ORDOÑEZ PATIENT MEDICARE (WNR) MEDICARE (M) PART A May 20, 2009 PART A [id number] [phone] KE ORDOÑEZ PATIENT Selected Encounter This section includes the information on record at NH for the Encounter. Date/Time Encounter Type Encounter Description Reason Pro vider Source Aug 23, 2024 12:00 AM Outpatient Encounter ADMIN PAT ACTIVTIES (MASNONCT) E Encounter Template Text not used by NH Social History: Smoking Status (Most current) and Tobacco Use (All prior to encounter date) This section includes the most current, and the historical, smoking and tobacco- related health factors from the NH facility where the Encounter took place. Current Smoking Status This section includes the most current smoking, or tobacco-related health factor, from the NH facility where the Encounter took place. Date/Time Current Smoking Status Comment Facil ity Jul 30, 2023 10:30 AM VA-TOBACCO FORMER USER [facility] Tobacco Use History This section includes a history of the smoking, or tobacco-related health factors, that were collected on or before the date of the Encounter. The data comes from the NH facility where the Encounter took place. Date/Time Smoking Status/Tobacco Use Comment F acility Jul 30, 2023 10:30 AM VA-TOBACCO QUIT 5 TO < 15 YRS [facility] Jan 15, 2022 11:00 AM VA-TOBACCO FORMER USER [facility] Jan 15, 2022 11:00 AM VA-TOBACCO QUIT 15 YRS OR MORE [facility] December 14, 2020 01:30 PM VA-TOBACCO FORMER USER [facility] December 14, 2020 01:30 PM VA-TOBACCO QUIT 5 TO < 15 YRS [facility] Aug 19, 2019 11:35 AM VA-TOBACCO FORMER USER [facility] Aug 19, 2019 11:35 AM VA-TOBACCO QUIT 15 YRS OR MORE [facility] Aug 27, 2018 11:54 AM VA-TOBACCO DOESNT USE WI 30 MIN WAKEUP [facility] Aug 27, 2018 11:54 AM VA-TOBACCO USE 5 TO 15 YEARS [facility] Aug 27, 2018 11:54 AM VA-TOBACCO USE ADVICE [facility] Aug 27, 2018 11:54 AM VA-TOBACCO USE OPERATIONS RESEARCH ENGINEER NO [facility] Aug 27, 2018 11:54 AM VA-TOBACCO USE MED NO [facility] Aug 27, 2018 11:54 AM VA-TOBACCO USER SOME DAYS [facility] Dec 24, 2016 12:51 PM FORMER TOBACCO USER 7Y OR GREATE R [facility] Sep 12, 2015 09:12 AM FORMER TOBACCO USE >1Y <7Y [facility] Sep 05, 2014 10:04 AM LIFETIME NON-TOBACCO USER [facility] Aug 25, 2014 09:45 AM FORMER TOBACCO USE >1Y <7Y [facility] Aug 03, 2014 06:11 PM FORMER TOBACCO USER 7Y OR GREATE R [facility] Aug 03, 2014 02:50 PM LIFETIME NON-TOBACCO USER [facility] Aug 01, 2014 11:24 AM FORMER TOBACCO USE >1Y <7Y [facility] Mar 07, 2013 08:45 AM FORMER TOBACCO USE >1Y <7Y [facility] Oct 17, 2009 07:56 AM CURRENT TOBACCO USER [facility] Sep 01, 2006 09:04 AM CURRENT TOBACCO USER [facility] Sep 01, 2006 09:04 AM FORMER TOBACCO USER 7Y OR GREATE R [facility] Advance Directives: All historical and current Section Date Range: From patient's date of to the date document was created. This section includes ALL of a patient's completed or amended [place] Advance and Rescinded Directives. The entries below indicate that a directive exists for the patient, but an actual copy is not included with this document. The data comes from all [place] facilities. Date Advance Directives Provider Source Sep 06, 2014 CLINICAL WARNING TOYIN [facility] Aug 05, 2014 CLINICAL WARNING ROEL [facility] IS [facility] Aug 01, 2014 CLINICAL WARNING [place] Montero IS [facility] Jul 28, 2007 ADVANCE DIRECTIVE CATY ADORNO IS [facility] Encounter Notes: All associated encounter notes This section contains the clinical notes associated to the Encounter. Date/Time Encounter Note(s) Provider Source Aug 23, 2024 12:00 AM NONVA NOTE: LOCAL TITLE: OTHER NONVA NOTE STANDARD TITLE: NONVA NOTE DATE OF NOTE: AUG 23, 2024 ENTRY DATE: SEP 01, 2024@12:19:53 AUTHOR: KIM SALVADOR EXP COSIGNER: URGENCY: STATUS: COMPLETED [facility]ist[facility] - Scanned Document This note contains attached OTHER scanned document(s) received from an outside facility. Open [employer] Display to review the document(s). /angelita/ KIM SALVADOR Meteorological Technician - HIT Signed: 09/01/2024 12:19 KIM SALVADOR [facility]
--- OUTSIDE RECORDS SUMMARY | 2024-10-05 13:18 | XMS_ITS | Encounter Summary ---
Author Name [facility] [place] [facility] [place] [place] Address [address] [place] [id number] Care Team Providers Care Medical Billing Service Name Role Phone PRABHUEVELYN Primary Care Provider Unavailabl e Insurance Providers: [...] PART A May 20, 2009 PART A [id number] [phone] KE ORDOÑEZ YDELVIN PATIENT MEDICARE (WNR) MEDICARE ([place]) PART A May 20, 2009 PART A [id number] [phone] RAGINIPA YDELVIN PATIENT Selected Encounter This section includes the information on record at [place] for the Encounter. 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 Date/Time Primary/Secondary Diagnosis Diagnosis Name Provider Source Jun 14, 2024 11:20 AM PRIMARY Type 2 diabetes w diabetic autonomic (poly)neuropathy EDIL GOMEZ [facility] Jun 14, 2024 11:20 AM SECONDARY Other hammer toe(s) (acquired), unspecified foot EDIL GOMEZ [facility] Jun 14, 2024 11:20 AM SECONDARY Peripheral vascular disease, unspecified EDIL GOMEZ [facility] Jun 14, 2024 11:20 AM SECONDARY Unsp opn wnd right lesser toe(s) w damage to nail, init EDIL GOMEZ [facility] Plan of Treatment: Future Appointments (+ 6 months) and Future Tests (+/- 45 days) The Plan of Treatment section includes future care activities for the patient from all [place] [facility]. This section includes future appointments and future orders which are active, pending or scheduled. Future Appointments This section includes appointments that were scheduled to occur 6 months from the date of the Encounter, up to a maximum of 20 appointments. The data comes from all [facility] facilities. Appointment Date/Time Appointment Type Appointme nt Facility Name Jul 06, 2024 01:00 PM AMBULATORY - SURGERY [facility] Social History: Smoking Status (Most [...] 30, 2023 10:30 AM VA-TOBACCO FORMER USER [facility] Tobacco Use History This section includes a history of the smoking, or tobacco-related health factors, that were collected on or before the date of the Encounter. The data comes from the [place] facility where the Encounter took place. Date/Time Smoking Status/Tobacco Use Comment F aclamberto Jul 30, 2023 10:30 AM VA-TOBACCO QUIT 5 TO < 15 YRS [facility] Jan 15, 2022 11:00 AM VA-TOBACCO FORMER USER [facility] Jan 15, 2022 11:00 AM VA-TOBACCO QUIT 15 YRS OR MORE [facility] December 14, 2020 01:30 PM VA-TOBACCO FORMER USER [facility] December 14, 2020 01:30 PM VA-TOBACCO QUIT 5 TO < 15 YRS [facility] Aug 19, 2019 11:35 AM VA-TOBACCO FORMER USER [facility] Aug 19, 2019 11:35 AM VA-TOBACCO QUIT 15 YRS OR MORE [facility] Aug 27, 2018 11:54 AM VA-TOBACCO DOESNT USE WI 30 MIN WAKEUP [facility] Aug 27, 2018 11:54 AM VA-TOBACCO USE 5 TO 15 YEARS [facility] Aug 27, 2018 11:54 AM VA-TOBACCO USE ADVICE [facility] Aug 27, 2018 11:54 AM VA-TOBACCO USE NON 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 [facility] Aug 27, 2018 11:54 AM VA-TOBACCO USE MED NO [facility] Aug 27, 2018 11:54 AM VA-TOBACCO USER SOME DAYS [facility] Dec 24, 2016 12:51 PM FORMER TOBACCO USER 7Y OR GREATE R [facility] Sep 12, 2015 09:12 AM FORMER TOBACCO USE >1Y <7Y [facility] Sep 05, 2014 10:04 AM LIFETIME NON-TOBACCO USER [facility] Aug 25, 2014 09:45 AM FORMER TOBACCO USE >1Y <7Y [facility] Aug 03, 2014 06:11 PM FORMER TOBACCO USER 7Y OR GREATE R [facility] Aug 03, 2014 02:50 PM LIFETIME NON-TOBACCO USER [facility] Aug 01, 2014 11:24 AM FORMER TOBACCO USE >1Y <7Y [facility] Mar 07, 2013 08:45 AM FORMER TOBACCO USE >1Y <7Y [facility] Oct 17, 2009 07:56 AM CURRENT TOBACCO USER [facility] Sep 01, 2006 09:04 AM CURRENT TOBACCO USER [facility] Sep 01, 2006 09:04 AM FORMER TOBACCO USER 7Y OR GREATE R [facility] Advance Directives: All historical and current Section [...] 06, 2014 CLINICAL WARNING TOYIN COTA LIS [facility] Aug 05, 2014 CLINICAL WARNING ROEL MERCER IS [facility] Aug 01, 2014 CLINICAL WARNING ALETA MAZARIEGOS IS [facility] Jul 28, 2007 ADVANCE DIRECTIVE CATY ADORNO IS [facility] Radiology Reports: +/- 30 days of the [...] the Encounter. The data comes from all [place] treatment facilities. Date/Time Radiology Report Provider Source Jun 14, 2024 11:15 AM TOE(S) RIGHT 2 VIE WS OR MORE: MAIKEL ORDOÑEZ [id number] -[id number] M Exm Date: JUN 14, 2024@11:15 Req Phys: EDIL GOMEZ Pat Loc: [facility] HIGH RISK (Req Img Loc: MAIN X-RAY Service: [place] [address] (Case [id number] COMPLETE) TOE(S) RIGHT 2 VIEWS OR MORE (RAD Detailed) CPT:05629 Proc Modifiers : RIGHT Reason for Study: Wound to the right distal fourth digit. Swelling, redness laurie Clinical History: [place] IS NOT under investigation for COVID-19 or is COVID-19 negative Wound to the right distal fourth digit. Swelling, redness concerns for osteo Responsible provider name and phone number to notify for critical findings if other than user placing the order and pager listed below: User placing orders pager: [phone] LAST CREATININE____ Report Status: Verified Date Reported: JUN 14, 2024 Date Verified: JUN 14, 2024 Envelope Machine Adjuster E-Sig: Report: TOE(S) RIGHT 2 VIEWS OR MORE HISTORY: Wound to the right distal fourth digit. Swelling, redness laurie COMPARISON: Right toe radiographs January 02, 2021 TECHNIQUE: 4 view(s) of the right fourth toe(s), submitted to the [place] National Teleradiology Program (NTP) for interpretation. FINDINGS: No fracture identified. Grossly normal alignment across the visualized joint spaces. Soft tissue swelling and ulceration over the distal fourth digit. There is chronic ulceration of the fourth middle phalanx. The remaining distal phalanx is osteopenic. No radiopaque foreign body. Impression: Soft tissue swelling and ulceration over the distal fourth digit. There is chronic ulceration of the fourth middle phalanx. The remaining distal phalanx is osteopenic, similar to 2020 study. No definite new osseous erosion however Superimposed osteomyelitis is not excluded. READING PHYSICIAN: Kurtis Benitez -[phone] 06/14/2024 11:04 [facility] National Teleradiology Program [phone] (For Medical Practitioner Use Only) Attention Patients / Veterans: If you have questions or concerns about these test results, please contact your ordering provider or primary care team. Primary Interpreting Staff: RADIOLOGY,OUTSIDE SERVICE, Staff Physician / RADIOLOGY,OUTSIDE SERVICE [facility] Encounter Notes: All associated encounter notes This section contains the clinical notes associated to the Encounter. Date/Time Encounter Note(s) Provider Source Jun 14, 2024 11:20 AM ADDENDUM: LOCAL TITLE: Addendum STANDARD TITLE: ADDENDUM DATE OF NOTE: JUN 14, 2024@11:20:20 ENTRY DATE: JUN 14, 2024@11:20:20 AUTHOR: EDIL GOMEZ EXP COSIGNER: URGENCY: STATUS: COMPLETED -assisted [facility] staff: 3 times a week please dress/care for his right distal fourth digit wound. Cleanse with wound cleanser, dry with gauze, apply topical bacitracin and dressed with either gauze dressing if drainage if not Band-Aid is okay as well. Will follow-up in 3 to 4 weeks /angelita/ EDIL GOMEZ NP NURSE PRACTITIONER Signed: 06/14/2024 11:21 Receipt Acknowledged By: 06/14/2024 11:28 /angelita/ CYN BOSWELL RN, A-C, [facility] REGISTERED NURSE --- Original Document --- 06/14/24 PODIATRY CLINIC NOTE: ASSESSMENT: 1. Type II diabetes 2. Peripheral neuropathy 3. History of gout 4. Peripheral vascular disease 5. Hammer toes 6. Right fourth digit wound secondary to hammertoe deformity PLAN: 1. Wound care supplies 2. X-rays 3. Follow-up in 3 to 4 weeks Foot exam complete. There is concerns for a wound to the distal right fourth digit at the medial aspect of the nail secondary to hammertoe and elongation of the nail. The entire digit red, swollen concerns for osteo. This was cleansed, debrided no probing to bone. No drainage, no odor. Will obtain x-rays to rule out any type of infection along with having him do wound care for the next 3 to 4 weeks and have him follow-up. Wound care will consist of wound cleanser, topical bacitracin with gauze/Band-Aid 3 times a week. Orders will be faxed to [facility]. I will be out of the office that she will follow-up with a different provider. If heals and no continued redness, swelling can certainly discontinue and cancel follow-up. Nails 1 through 10 were debrided in length, thickness. Once the fourth digit has resolved she will follow-up every 3 to 4 months for nail care to prevent the above. Education given on importance of daily foot exam, daily foot care along with the use of indoor, outdoor footwear I spent 25 minutes on patient care, including reviewing chart and history. With over 50% of time spent on [id number] education relating to medical condition. DISCLAIMER: This dictation was completed using [employer]. Although I attest that I diligently review and edit my dictations, insensible words or phrases may still be present.. Chief Complaint: Foot exam, foot care History of Present Illness: Maikel is a pleasant 79-year-old male comes in the clinic today coming by his care facility staff member. He has no new concerns with his feet. Last on 10/2023. He was attempting to see community care but this failed. Has not had nails debrided since. Has fairly prominent peripheral neuropathy. Self- reported history of foot wound Pertinent Medical History:Type 2 diabetes, CKD, peripheral neuropathy, CHF Allergies: Patient has answered NKA Current Medications: Active Outpatient Medications (including Supplies): ALLOPURINOL 100MG TAB TAKE ONE TABLET BY MOUTH EVERY DAY ACTIVE FOR GOUT PREVENTION AMLODIPINE BESYLATE 5MG TAB TAKE ONE TABLET BY MOUTH AT ACTIVE BEDTIME FOR BLOOD PRESSURE ATORVASTATIN CALCIUM 10MG TAB TAKE ONE TABLET BY MOUTH AT ACTIVE BEDTIME FOR CHOLESTEROL BACITRACIN OINT,TOP APPLY DIRECTED TOPICALLY EVERY DAY PENDING BANDAGE,FLEXIBLE FABRIC 1IN X 3IN USE 1 BANDAGE TOPICALLY PENDING EVERY MORNING CYANOCOBALAMIN 1000MCG TAB TAKE ONE TABLET BY MOUTH EVERY ACTIVE DAY FOR VITAMIN B12 DEFICIENCY FUROSEMIDE 20MG TAB TAKE ONE TABLET BY MOUTH EVERY DAY ACTIVE (S) GAUZE PAD 4IN X 4IN 8-PLY NONSTERILE USE GAUZE TOPICALLY PENDING EVERY MORNING LISINOPRIL 40MG TAB TAKE ONE TABLET BY MOUTH EVERY MORNING ACTIVE FOR HIGH BLOOD PRESSURE MAGNESIUM OXIDE 420MG TAB TAKE ONE TABLET BY MOUTH EVERY ACTIVE DAY FOR MAGNESIUM DEFICIENCY REMEDY SKIN CLEANSER SOLN,TOP APPLY TO AFFECTED AREA PENDING TOPICALLY EVERY MORNING VANICREAM TOP CREAM APPLY THIN LAYER TOPICALLY EVERY DAY ACTIVE FOR DRY SKIN, IDEALLY WITHIN 3 MINUTES AFTER BATH OR SHOWER. Non-VA ACETAMINOPHEN 325MG TAB 325MG MOUTH EVERY 6 HOURS ACTIVE NEEDED REVIEW OF SYSTEMS: See the above Physical Exam: Pain Score: 0 (09/28/2023 10:33) Temperature: 97.5 F [36.4 C] (09/28/2023 10:33) Pulse: 95 (09/28/2023 10:40) Blood Pressure: 120/67 (09/28/2023 10:40) Weight: 162.8 lb [73.84 kg] (07/30/2023 10:27) Height: 67 in [170.2 cm] (07/30/2023 10:27) BMI: 25.6 Vascular: Pedal pulses palpable 1/4 at the DP and PT locations bilateral. Capillary refill time is less than 5 seconds. No edema, erythema, or varicosities noted. Hair growth negative. Neurologic: Absent sensation to the forefoot, midfoot, hindfoot with blood test bilaterally dermatologic: Skin is dry flaky but intact Temperature is warm to cool from proximal to distal. Toenails are brittle, thickened, yellow. There are no signs of infection. No exposed bone. No plantar wound or puncture site, no fluctuance or fluid collection noted. Hyperkeratosis/significant nail dystrophy to the right fourth digit medially. This was debrided/trimmed and there is a area of boggy soft tissue no open visible wound, no probing to bone, no bleeding, no odor. The macerated tissue was debrided to clean margins. Dressed with Band-Aid, bacitracin. The more proximal digit does note to have erythema, swelling. No pain with palpation Muscle strength 5/5 for all groups tested. Bilateral hammertoe contractures to the lesser digits nonreducible Latest Labs: HGB____ MCV____ WBC____ PLT ____ GLUCOSE____ RHEUMATOID FACTOR____ C-REACTIVE PROTEIN____ ALBUMIN____ No data available URIC ACID____ CALCIUM____ MAGNESIUM____ PO4____ CREATININE____ UREA NITROGEN____ Collection DT Specimen Test Name Result Units Ref Range 10/23/2014 05:30 PLASMA VIT D 25-OH,TOTAL 54 ng/mL Ref: >=30 TSH ____ No data available LAB TESTS SELECTED Collection DT Specimen Test Name Result Units Ref Range 09/25/2022 12:33 BLOOD !! HEMOGLOBIN A1C 5.5 % 4.0 - 6.0 !! Indicates COMMENTS AVAILABLE...Refer to Interim Lab Report. Lipids: CHOLESTEROL____ HDL____ LDL CALCULATION____ LDL Measured: /es/ EDIL GOMEZ NP NURSE PRACTITIONER Signed: 06/14/2024 11:20 EDIL GOMEZ [facility] Jun 14, 2024 11:12 AM PODIATRY ATTENDING NOTE: LOCAL TITLE: PODIATRY CLINIC NOTE STANDARD TITLE: PODIATRY ATTENDING NOTE DATE OF NOTE: JUN 14, 2024@11:12 ENTRY DATE: JUN 14, 2024@11:12:39 AUTHOR: EDIL GOMEZ EXP COSIGNER: URGENCY: STATUS: COMPLETED PODIATRY CLINIC NOTE Has ADDENDA ASSESSMENT: 1. Type II diabetes 2. Peripheral neuropathy 3. History of gout 4. Peripheral vascular disease 5. Hammer toes 6. Right fourth digit wound secondary to hammertoe deformity PLAN: 1. Wound care supplies 2. X-rays 3. Follow-up in 3 to 4 weeks Foot exam complete. There is concerns for a wound to the distal right fourth digit at the medial aspect of the nail secondary to hammertoe and elongation of the nail. The entire digit red, swollen concerns for osteo. This was cleansed, debrided no probing to bone. No drainage, no odor. Will obtain x-rays to rule out any type of infection along with having him do wound care for the next 3 to 4 weeks and have him follow-up. Wound care will consist of wound cleanser, topical bacitracin with gauze/Band-Aid 3 times a week. [facility] will be [facility] to [facility]. I will be out of the office that she will follow-up with a different provider. If heals and no continued redness, swelling can certainly discontinue and cancel follow-up. Nails 1 through 10 were debrided in length, thickness. Once the fourth digit has resolved she will follow-up every 3 to 4 months for nail care to prevent the above. Education given on importance of daily foot exam, daily foot care along with the use of indoor, outdoor footwear I spent 25 minutes on patient care, including reviewing chart and history. With over 50% of time spent on [id number] education relating to medical condition. DISCLAIMER: This dictation was completed using [employer]. Although I attest that I diligently review and edit my dictations, insensible words or phrases may still be present.. Chief Complaint: Foot exam, foot care History of Present Illness: Maikel is a pleasant 79-year-old male comes in the clinic today coming by his care facility staff member. He has no new concerns with his feet. Last on 10/2023. He was attempting to see community care but this failed. Has not had nails debrided since. Has fairly prominent peripheral neuropathy. Self- reported history of foot wound Pertinent Medical History:Type 2 diabetes, CKD, peripheral neuropathy, CHF Allergies: Patient has answered NKA Current Medications: Active Outpatient Medications (including Supplies): ALLOPURINOL 100MG TAB TAKE ONE TABLET BY MOUTH EVERY DAY ACTIVE FOR GOUT PREVENTION AMLODIPINE BESYLATE 5MG TAB TAKE ONE TABLET BY MOUTH AT ACTIVE BEDTIME FOR BLOOD PRESSURE ATORVASTATIN CALCIUM 10MG TAB TAKE ONE TABLET BY MOUTH AT ACTIVE BEDTIME FOR CHOLESTEROL BACITRACIN OINT,TOP APPLY DIRECTED TOPICALLY EVERY DAY PENDING BANDAGE,FLEXIBLE FABRIC 1IN X 3IN USE 1 BANDAGE TOPICALLY PENDING EVERY MORNING CYANOCOBALAMIN 1000MCG TAB TAKE ONE TABLET BY MOUTH EVERY ACTIVE DAY FOR VITAMIN B12 DEFICIENCY FUROSEMIDE 20MG TAB TAKE ONE TABLET BY MOUTH EVERY DAY ACTIVE (S) GAUZE PAD 4IN X 4IN 8-PLY NONSTERILE USE GAUZE TOPICALLY PENDING EVERY MORNING LISINOPRIL 40MG TAB TAKE ONE TABLET BY MOUTH EVERY MORNING ACTIVE FOR HIGH BLOOD PRESSURE MAGNESIUM OXIDE 420MG TAB TAKE ONE TABLET BY MOUTH EVERY ACTIVE DAY FOR MAGNESIUM DEFICIENCY REMEDY SKIN CLEANSER SOLN,TOP APPLY TO AFFECTED AREA PENDING TOPICALLY EVERY MORNING VANICREAM TOP CREAM APPLY THIN LAYER TOPICALLY EVERY DAY ACTIVE FOR DRY SKIN, IDEALLY WITHIN 3 MINUTES AFTER BATH OR SHOWER. Non-VA ACETAMINOPHEN 325MG TAB 325MG MOUTH EVERY 6 HOURS ACTIVE NEEDED REVIEW OF SYSTEMS: See the above Physical Exam: Pain Score: 0 (09/28/2023 10:33) Temperature: 97.5 F [36.4 C] (09/28/2023 10:33) Pulse: 95 (09/28/2023 10:40) Blood Pressure: 120/67 (09/28/2023 10:40) Weight: 162.8 lb [73.84 kg] (07/30/2023 10:27) Height: 67 in [170.2 cm] (07/30/2023 10:27) BMI: 25.6 Vascular: Pedal pulses palpable 1/4 at the DP and PT locations bilateral. Capillary refill time is less than 5 seconds. No edema, erythema, or varicosities noted. Hair growth negative. Neurologic: Absent sensation to the forefoot, midfoot, hindfoot with blood test bilaterally dermatologic: Skin is dry flaky but intact Temperature is warm to cool from proximal to distal. Toenails are brittle, thickened, yellow. There are no signs of infection. No exposed bone. No plantar wound or puncture site, no fluctuance or fluid collection noted. Hyperkeratosis/significant nail dystrophy to the right fourth digit medially. This was debrided/trimmed and there is a area of boggy soft tissue no open visible wound, no probing to bone, no bleeding, no odor. The macerated tissue was debrided to clean margins. Dressed with Band-Aid, bacitracin. The more proximal digit does note to have erythema, swelling. No pain with palpation Muscle strength 5/5 for all groups tested. Bilateral hammertoe contractures to the lesser digits nonreducible Latest Labs: HGB____ MCV____ WBC____ PLT ____ GLUCOSE____ RHEUMATOID FACTOR____ C-REACTIVE PROTEIN____ ALBUMIN____ No data available URIC ACID____ CALCIUM____ MAGNESIUM____ PO4____ CREATININE____ UREA NITROGEN____ Collection DT Specimen Test Name Result Units Ref Range 10/23/2014 05:30 PLASMA VIT D 25-OH,TOTAL 54 ng/mL Ref: >=30 TSH ____ No data available LAB TESTS SELECTED Collection DT Specimen Test Name Result Units Ref Range 09/25/2022 12:33 BLOOD !! HEMOGLOBIN A1C 5.5 % 4.0 - 6.0 !! Indicates COMMENTS AVAILABLE...Refer to Interim Lab Report. Lipids: CHOLESTEROL____ HDL____ LDL CALCULATION____ LDL Measured: /angelita/ EDIL GOMEZ NP NURSE PRACTITIONER Signed: 06/14/2024 11:20 06/14/2024 ADDENDUM STATUS: COMPLETED -assisted [facility] staff: 3 times a week please dress/care for his right distal fourth digit wound. Cleanse with wound cleanser, dry with gauze, apply topical bacitracin and dressed with either gauze dressing if drainage if not Band-Aid is okay as well. Will follow-up in 3 to 4 weeks /vince GOMEZ NP NURSE PRACTITIONER Signed: 06/14/2024 11:21 Receipt Acknowledged By: 06/14/2024 11:28 /angelita/ CYN BOSWELL RN, WTJoana-C, [facility] REGISTERED NURSE 06/14/2024 ADDENDUM STATUS: COMPLETED Updated wound care orders faxed to [facility] . /angelita/ CYN BOSWELL RN, WTJoana-C, [facility] REGISTERED NURSE Signed: 06/14/2024 11:52 06/14/2024 ADDENDUM STATUS: COMPLETED xrays: Soft tissue swelling and ulceration over the distal fourth digit. There is chronic ulceration of the fourth middle phalanx. The remaining distal phalanx is osteopenic, similar to 2020 study. No definite new osseous erosion however Superimposed osteomyelitis is not excluded. plan remain the same. /angelita/ EDIL GOMEZ NP NURSE PRACTITIONER Signed: 06/14/2024 14:36 EDIL GOMEZ [facility] Jun 14, 2024 10:42 AM SUICIDE PREVENTION RISK ASSESSMENT SCREENING NOTE: LOCAL TITLE: [place] SCREENING NOTE STANDARD TITLE: SUICIDE PREVENTION RISK ASSESSMENT SCREENING NOT DATE OF NOTE: JUN 14, 2024@10:42 ENTRY DATE: JUN 14, 2024@10:42:13 AUTHOR: CORNELIA GOLDMAN EXP COSIGNER: URGENCY: STATUS: COMPLETED C-SSRS Screening [place] Suicide Severity Rating Scale (C-SSRS) screener 1. [...] due to responses to other questions. /angelita/ Cornelia Goldman LPN LICENSED PRACTICAL NURSE Signed: 06/14/2024 10:42 CORNELIA GOLDMAN [facility]
--- NOTE | 2024-10-05 13:29 | CRLHL7_ITS ---
For Patients: As a result of the Century Cures Act, medical imaging exams and procedure reports are released immediately into your electronic medical record. You may view this report before your referring provider. If you have questions, please contact your health care provider. Indication: Injury and pain Technique: Left foot 3 views. Comparison: None Findings: Chronic hypertrophic change to the posterior superior calcaneus. No joint effusion. Osteopenia. 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 No acute fracture. Impression: No sign of acute injury. Dictated by Roland Leo MD @ 10/05/2024 2:34:59 PM (Electronically Signed)
--- NOTE | 2024-10-05 13:30 | ED.GENADULT ---
HPI - General Adult General Chief complaint: Extremity Pain/Injury, Lower Stated complaint: Fell on left foot Time Seen by Provider: 10/05/24 13:11 History of Present Illness HPI narrative: Patient is an 79 year white male who stepped out had an exercise piece of equipment by his bed last night. Has a small skin tear about the size of a quarter. It is not deep. He has been able to walk without difficulty with his walker. He has apparently some type of neuropathy and family is concerned that he might have heard a bone inside his foot and can not feel it well. They present to the ER for evaluation. He is ambulating normally. Related Data Home Medications ?Medication ?Instructions ?Recorded ?Confirmed allopurinol 100 mg tablet 100 mg PO QDAY 08/23/24 08/23/24 amlodipine 10 mg tablet 10 mg PO QDAY 08/23/24 08/23/24 atorvastatin 20 mg tablet 20 mg PO QHS 08/23/24 08/23/24 cholecalciferol (vitamin D3) 1,250 1,000 unit PO QWEEK 08/23/24 08/23/24 mcg (50,000 unit) capsule cyanocobalamin (vitamin B-12) 1,000 mcg PO QDAY 08/23/24 08/23/24 1,000 mcg capsule furosemide 20 mg tablet 20 mg PO QDAY 08/23/24 08/23/24 lisinopril 40 mg tablet 40 mg PO QDAY 08/23/24 08/23/24 magnesium oxide 420 mg PO QDAY 08/23/24 08/23/24 Allergies Allergy/AdvReac Type Severity Reaction Status Date / Time No Known Drug Allergies Allergy Verified 08/23/24 14:56 Review of Systems Status of ROS: Reports: 6 or more systems reviewed and unremarkable except as noted in History and below [facility] Social History Smoking Status: Never smoker Do you use any of these nicotine containing products: None Second hand tobacco smoke exposure: No How often do you have a drink containing alcohol: never How often do you have six or more drinks on one occasion: Never AUDIT-C Alcohol total score: 0 Non-prescribed substance use: denies use service: No Exam Narrative: Exam Narrative: Objective: Small quarter-size skin avulsion on the left lateral foot. There is no palpable tenderness around the area there is some slight soft tissue swelling. No bruising or ecchymoses and distal CMS intact him able to push in flexion extend his foot fairly fully Vital signs show elevated blood pressure otherwise unremarkable No proximal leg tenderness on the left Const: Vital Signs, click to edit/add: Vital Signs - 24 hr 10/05/24 13:13 Temperature 97.6 F Pulse Rate [Pulse Oximeter] 84 Respiratory Rate 16 Blood Pressure [Ri ght Upper Arm] 150/79 H Pulse Oximetry 97 Oxygen Delivery Me thod Room Air Course Vital Signs Vital signs: Initial Vital Signs Temperature 97.6 F 10/05/24 13:13 Temperature Source Temporal Artery Scan 10/05/24 13:13 Pulse Rate 84 10/05/24 13:13 Respiratory Rate 16 10/05/24 13:13 Blood Pressure 150/79 H 10/05/24 13:13 Blood Pressure Mean 102 10/05/24 13:13 Blood Pressure Position Sitting 10/05/24 13:13 Pulse Oximetry 97 10/05/24 13:13 Oxygen Delivery Method Room Air 10/05/24 13:13 Vital Signs Temperature 97.6 F 10/05/24 13:13 Pulse Rate 84 10/05/24 13:13 Respiratory Rate 16 10/05/24 13:13 Blood Pressure 150/79 H 10/05/24 13:13 Pulse Oximetry 97 10/05/24 13:13 Oxygen Delivery Method Room Air 10/05/24 13:13 Temperature 97.6 F 10/05/24 13:13 Pulse Rate 84 10/05/24 13:13 Respiratory Rate 16 10/05/24 13:13 Blood Pressure 150/79 H 10/05/24 13:13 Pulse Oximetry 97 10/05/24 13:13 Oxygen Delivery Method Room Air 10/05/24 13:13 Medical Decision Making MDM Narrative Medical decision making narrative: [age] year white male with diminished feeling in his foot consistent with neuropathy with a abrasion. This will be cleansed and covered. He is up-to-date on tetanus. Will check an x-ray for completeness of his foot if this is negative simply cover the area with bacitracin and a bandage and change it daily and do this for 3 4 days. Would recommend observation, Tylenol as needed. Will review his x-rays returns. Addendum 2:30 p.m. patient's x-ray of the foot by my review looks unremarkable. Symptomatic management keep bacitracin and bandage on the wound. Ambulate as tolerated, Tylenol as needed. Discharge Plan Discharge Clinical Impression: Foot injury Patient Disposition: Home w/ Parent or Adult Condition: Stable Additional Instructions: Keep the foot covered with bacitracin and a bandage for the next several days, warm soaks daily, Tylenol as needed, return if problems or concerns. Activity Level: Light activity Discharge Diet: Regular Prescriptions: No Action allopurinol 100 mg tablet 100 mg PO QDAY amlodipine 10 mg tablet 10 mg PO QDAY atorvastatin 20 mg tablet 20 mg PO QHS Rx Instructions: 1/2 tab at bedtime cyanocobalamin (vitamin B-12) 1,000 mcg capsule 1,000 mcg PO QDAY furosemide 20 mg tablet 20 mg PO QDAY lisinopril 40 mg tablet 40 mg PO QDAY magnesium oxide 400 mg magnesium capsule 420 mg PO QDAY cholecalciferol (vitamin D3) 1,250 mcg (50,000 unit) capsule 1,000 unit PO QWEEK Follow Up/Referrals: Ada Schneider MD [Primary Care Provider] - Stand Alone Forms: [employer] Info Instructions
--- OUTSIDE RECORDS SUMMARY | 2024-10-05 13:59 | XMS_ITS ---
Author Organization [facility] Care Team Providers Care Clinic Md Associate Name Role Phone Christianne Rosas Unavailable Unavailable RenettaLj Unavailable Unavailable Allergies and adverse reactions No Known Allergies Care Team Name Role Address Phone Organization Dates Lj Jackson PCP [facility] [address], [address], [place], [address], [facility] (Office): [facility] 08/25/2014 - 09/05/2014 Christianne Rosas Attending Physician [facility] [address], [place], [address], [place] (Office): : [facility] 08/25/2014 - 09/05/2014 Immunizations Immunization Status Vaccine Details Vaccine Code CodeSystem Date Notes TB 2 Step Mantoux Skin Test completed tuberculin skin test; unspecified formulation lotNumber: [id number] expiry: 11/17/2015 Mfg: [employer] Given 0.1 [...] Current Smoking Status Tobacco smoking consumption unknown [id number] SNOMED CT Sex Assigned At Male 1945 93004-1 [facility] Vital Signs Code Code System Vitals Name Values and Units Timing Information 8310-5 LOINC Body Temperature Value=97.7 Units= F 09/04/2014 9279-1 LOINC Respiratory Rate Value=17.0 Units=/m in 09/04/2014 31815-8 LOINC Weight Clqcn=585.4 Units=Lbs 8462-4 LOINC Blood Pressure-Diastolic Value=70 Un its=mmHg 09/04/2014 8480-6 LOINC Blood Pressure-Systolic Tzbww=810 Un its=mmHg 09/04/2014 8867-4 LOINC Heart rate Value=93.0 Units=/min 85882-3 [facility] Pain Level Value=0.0 08/31/2014 31211-8 [facility] O2 % BldC Oximetry Value=95.0 Units= % 08/29/2014 8302-2 [facility] Height Value=63.0 Units=Inches 08/26/2014
--- OUTSIDE RECORDS SUMMARY | 2024-10-05 14:00 | XMS_ITS | Continuity of Care Document ---
Author Name [facility] Organization [facility] Care Team Providers Care Clinical Quality Analyst Name Role Phone [facility] Unavailable Unavailable Problems Combined list of problems from Department of Defense and [facility] Affairs facilities. It does not include entries that were removed or entered in error. Problem Status Onset Date Problem Type Date of Resolution Comments Source Bipolar, Manic Full Rem Active Condition [facility] Chronic kidney disease stage 3 Active Condition [facility] Diabetes Mellitus Type 2 ([facility] 66027086) Active Condition May 01, 2020 Entered By: DARA PELLETIER Comment: prev dx. a1c >6.5 prev. now controlled ?(no med) [facility] Diastolic heart failure Active Condition [facility] Hypertension (SNOMED CT 03076494) Active Condition [facility] Idiopathic fecal incontinence Active Condition [facility] Mood disorder (SNOMED CT 39535959) Active Condition [facility] Alcoh Depend, in Remis Inactive Condition 12/24/2016 [facility] Alcoh Dependence, Unsp Inactive Condition 12/24/2016 [facility] Cannabis Depen,in Remis Inactive Condition 12/24/2016 [facility] CHRON PERIODONTITIS,GE N Inactive Condition 12/24/2016 [facility] Cocaine Depend, unspec Inactive Condition 12/24/2016 [facility] [place] Lesion, Pulmonary * (ICD-9-CM 793.1) Inactive Condition 12/24/2016 [facility] COPD Inactive Condition 12/24/2016 [facility] Dyslipidemia (ICD-9-CM 272.4) Inactive Condition 12/24/2016 [facility] Elevated blood pressure reading without diagnosis of hypertension (ICD-9-CM 796. Inactive Condition 12/24/2016 [facility] GINGIV/PERIODONT DIS NOS Inactive Condition 12/24/2016 [facility] Hand Injury Inactive Condition 12/24/2016 [place] [facility] Nicotine Dependence (ICD-9-CM 305.1) Inactive Condition 12/24/2016 [facility] OVERWEIGHT Inactive Condition 12/24/2016 [facility] Routine General Medical Examination at a Health Care Facility * Inactive Condition 12/24/2016 [facility] Diagnosis: ICD-10-CM N18.9 Chronic kidney disease, unspecified Active Diagnosis [facility] Diagnosis: ICD-10-CM 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 Active Diagnosis [facility] Diagnosis: ICD-10-CM E11.9 Type 2 diabetes mellitus without complications Active Diagnosis [facility] Diagnosis: ICD-10-CM E11.40 Type 2 diabetes mellitus with diabetic neuropathy, unsp Active Diagnosis [facility] Diagnosis: ICD-10-CM R26.89 Other abnormalities of gait and mobility Active Diagnosis [facility] Diagnosis: ICD-10-CM I10 Essential (primary) hypertension Active Diagnosis [facility] Diagnosis: ICD-10-CM Z65.8 Oth problems related to psychosocial circumstances Active Diagnosis [facility] Diagnosis: ICD-10-CM S42.452D Disp fx of lateral condyle of l humer, 7thD Active Diagnosis [facility] Diagnosis: ICD-10-CM S42.452A Disp fx of lateral condyle of left humerus, init for clos fx Active Diagnosis [facility] Diagnosis: ICD-10-CM S42.402A Unsp fracture of lower end of left humerus, init for clos fx Active Diagnosis [facility] Medications Combined list of outpatient [...] PRN ORAL ACTIVE [place], EVELYN ALLRED 2023 [facility] ALLOPURINOL 100MG TAB TAKE ONE TABLET BY MOUTH EVERY DAY FOR GOUT PREVENTI ON ORAL ACTIVE 12/07/2024 [id number] [place], EVELYN ALLRED 2023 90 [facility] ALLOPURINOL 100MG TAB TAKE ONE TABLET BY MOUTH EVERY DAY FOR GOUT PREVENTI ON ORAL DISCONT INUED 10/15/2023 [id number] 4 [place], EVELYN ALLRED 2022 90 [facility] AMLODIPINE BESYLATE 5MG TAB TAKE ONE TABLET BY MOUTH AT BEDTIME FOR BLOOD PRESSURE ORAL 08/13/2024 [id number] 4 EVELYN PELLETIER 2023 90 [place] [facility] ATORVASTATI N CA 10MG TAB TAKE ONE TABLET BY MOUTH AT BEDTIME FOR CHOLESTE ROL ORAL 08/13/2024 [id number] 4 [facility] 2023 90 [place] [facility] [facility] BACITRACIN 500UNT/GM OINT,TOP APPLY DIRECTED TOPICALL Y EVERY DAY TO PREVENT INFECTIO N TOPICA L 07/14/2024 [id number] Elsie GOMEZ 2023 30 [place] [facility] CYANOCOBALA MIN 1000MCG TAB TAKE ONE TABLET BY MOUTH EVERY DAY FOR VITAMIN B12 DEFICIEN CY ORAL ACTIVE 10/27/2024 [id number] 4 [facility] 2023 100 [place] [facility] CYANOCOBALA MIN 1000MCG TAB TAKE ONE TABLET BY MOUTH EVERY DAY FOR VITAMIN B12 DEFICIEN CY ORAL DISCONT INUED 10/15/2023 [id number] 4 [facility] 2022 100 [facility] EMPAGLIFLOZ IN 25MG TAB TAKE ONE-HALF TABLET BY MOUTH EVERY MORNING FOR DIABETES AND KIDNEY. DRINK WATER THROUGHO UT DAY TO STAY HYDRATED . ORAL 02/04/2024 [id number] 4 EVELYN PELLETIER 2022 45 [place] [facility] FUROSEMIDE 20MG TAB TAKE ONE TABLET BY MOUTH EVERY DAY ORAL DISCONT INUED 10/15/2023 [id number] 4 [facility] 2022 90 [facility] FUROSEMIDE 20MG TAB TAKE ONE TABLET BY MOUTH EVERY DAY ORAL 08/13/2024 [id number] 4 [facility] 2023 90 [facility] HYDROCODONE 5MG/ACETAMI NOPHEN 325MG TAB TAKE 1 TABLET BY MOUTH EVERY 4 HOURS NEEDED FOR PAIN ORAL 08/29/2023 [id number] HEIDI VIVAS 2023 12 [facility] LISINOPRIL 40MG TAB TAKE ONE TABLET BY MOUTH EVERY MORNING FOR HIGH BLOOD PRESSURE ORAL ACTIVE 10/27/2024 [id number] 5 [facility] 2023 90 [facility] LISINOPRIL 40MG TAB TAKE ONE TABLET BY MOUTH EVERY MORNING FOR HIGH BLOOD PRESSURE ORAL DISCONT INUED 10/15/2023 [id number] 4 [facility] 2022 90 [facility] MAGNESIUM OXIDE 420MG TAB TAKE ONE TABLET BY MOUTH EVERY DAY FOR MAGNESIU M DEFICIEN CY ORAL ACTIVE 02/03/2025 [id number] 5 [facility] 2023 100 [facility] MAGNESIUM OXIDE 420MG TAB TAKE ONE TABLET BY MOUTH EVERY DAY FOR MAGNESIU M DEFICIEN CY ORAL DISCONT INUED 10/15/2023 [id number] 4 [facility] KR[facility] 2022 100 [facility] REMEDY SKIN CLEANSER SOLN,TOP APPLY TO AFFECTED AREA TOPICALL Y EVERY MORNING FOR WOUND TOPICA L 09/12/2024 [id number] 4 Elsie GOMEZ 2023 240 [facility] VANICREAM APPLY THIN LAYER TOPICALL Y EVERY DAY FOR DRY SKIN, IDEALLY WITHIN 3 MINUTES AFTER BATH OR SHOWER. FOR DRY SKIN, IDEALLY WITHIN 3 MINUTES AFTER BATH OR SHOWER. TOPICA L 09/02/2024 [id number] 4 [facility] NORTH[facility] ALLRED 2023 454 [facility] Immunizations Combined list of available immunizations from the Department of Defense and Veterans Affairs facilities. Immunization Series Date Given Administered By Site Reaction Lot Number CVX Code Drug Solar Project Engineer Status Comments Source PNEUMOCOCCAL POLYSACCHARID E PPV23 2023 CORDELIA PICHARDO RIGHT DELTO ID [id number] 33 complet ed [facility] COVID-19 (MODERNA), MRNA, LNP-S, PF, 50 MCG/0.5 ML (AGES 12+ YEARS) 2022 312 complet ed [facility] COVID-19 (MODERNA), MRNA, LNP-S, BIVALENT, PF, 50 MCG/0.5 ML OR 25MCG/0.25 ML DOSE 2021 229 complet ed [facility] COVID-19 (MODERNA), MRNA, LNP-S, PF, 100 MCG/0.5ML DOSE OR 50 MCG/0.25ML DOSE 4 2021 207 complet ed [facility] PNEUMOCOCCAL CONJUGATE PCV 13 2020 133 complet ed [facility] ZOSTER RECOMBINANT 2 2020 187 complet ed [facility] COVID-19 (MODERNA), MRNA, LNP-S, PF, 100 MCG OR 50 MCG DOSE 3 2020 207 complet ed [facility] COVID-19 (MODERNA), MRNA, LNP-S, PF, 100 MCG/0.5 ML DOSE 2 2020 207 complet ed [facility] COVID-19 (MODERNA), MRNA, LNP-S, PF, 100 MCG/0.5 ML DOSE 1 2020 207 complet ed [facility] ZOSTER RECOMBINANT 1 2018 187 complet ed [facility] TDAP 2017 115 complet ed [employer] [id number] Exp. 9 [facility] TD (ADULT) 2014 138 complet ed [facility] ZOSTER LIVE 2009 121 complet ed x [facility] PNEUMOCOCCAL, UNSPECIFIED FORMULATION 2008 109 complet ed [employer] [id number], 10/05/09 [facility] TD(ADULT) UNSPECIFIED FORMULATION 2000 139 complet ed [facility] TD(ADULT) UNSPECIFIED FORMULATION [address] [facility] TETANUS TOXOID, UNSPECIFIED FORMULATION 1996 112 complet ed [facility] Encounters Combined list of: 1) Encounters from Department of Veterans Affairs facilities going backup to the last 18 months, not all VA inpatient encounters are included; 2) Encounters from the Department of Defense facilities going backup to 280 months. Location Location Details Encounter Type Encounter Number Reason For Visit Attending Provider ADM Date DC Date Status Disposition Source [facility] Outpatient Encounter [id number] 05/04 [facility] [place] [facility] Outpatient Encounter [id number] 07/28 [facility] [place] [facility] Outpatient Encounter [id number] Harley SOUTH 07/30 [facility] OFFICE O/P EST LOW 20 MIN [id number] Diagnos is: ICD-10- CM S42.402 A Unsp fractur e of lower end of left humerus , init for clos fx MITCHELL VIVAS Sixto 07[facility] Outpatient Encounter [id number] 08/05 [facility] OFFICE O/P EST MOD 30 MIN [id number] Diagnos is: ICD-10- CM S42.452 A Disp fx of lateral condyle of left humerus , init for clos fx ALDO CONN 08/24 [facility] Outpatient Encounter [id number] 09/09 [facility] [place] [facility] Outpatient Encounter [id number] 09/25 [facility] OFFICE O/P EST LOW 20 MIN [id number] Diagnos is: ICD-10- CM I10 Essenti al (primar y) hyperte POLINA Tinsley 09/27 [facility] [place] [facility] Outpatient Encounter [id number] 09/27 [facility] OFFICE O/P EST MOD 30 MIN [id number] Diagnos is: ICD-10- CM S42.452 D Disp fx of lateral condyle of l humer, 7thD ALDO CONN A [facility]04 [facility] Outpatient Encounter [id number] ANACyndy KRISHNAN LALRED 10/04 [facility] CASE MANAGEMENT [id number] Diagnos is: ICD-10- CM Z65.8 Oth problem s related to psychos ocial circums OSMANY Francisco 10/05 [facility] [place] [facility] Outpatient Encounter [id number] 10/07 [facility] OFFICE O/P EST HI 40 MIN [id number] Diagnos is: ICD-10- CM I10 Essenti al (primar y) hyperte nsion PRABHUCyndy BRIDGET ALLRED 10/08 [facility] [place] [facility] Outpatient Encounter [id number] 10/12 [facility] [place] [facility] Outpatient Encounter [id number] 10/20 [facility] SELF CARE MNGMENT TRAINING [id number] Diagnos is: ICD-10- CM R26.89 Other abnorma lities of gait and mobilit y SA JONA GUERRERO 10/21 [facility] [place] [facility] Outpatient Encounter [id number] 10/26 [facility] [place] [facility] Outpatient Encounter [id number] 10/27 [facility] OFFICE O/P EST LOW 20 MIN [id number] Diagnos is: ICD-10- CM E11.40 Type 2 diabete s mellitu s with diabeti c neuropa thy, unsp LATA GOMEZ 10/27 [place] [facility] [place] [facility] Outpatient Encounter [id number] CHINOBREANNAMAREN MERINO 10/27 [place] [facility] [place] [facility] Outpatient Encounter [id number] 11/05 [place] [facility] [place] [facility] Outpatient Encounter [id number] 01/25 [place] [facility] [place] [facility] Outpatient Encounter [id number] 03/02 [place] [facility] [place] [facility] Outpatient Encounter [id number] Diagnos is: ICD-10- CM E11.9 Type 2 diabete s mellitu s without complic ations HERNAN MUNSON C 03/15 [facility] OFFICE O/P EST LOW 20 MIN [id number] Diagnos is: ICD-10- CM E11.43 Type 2 diabete s w diabeti c autonom ic (poly)n europat hy JASON,RY AN M 06/14 [facility] [place] [facility] OFFICE O/P EST MOD 30 MIN [id number] Diagnos is: ICD-10- CM N18.9 Chronic kidney disease , unspeci ALONDRA Nuñez 07/06 [facility] [place] [facility] Outpatient Encounter [id number] 07/29 [facility] [place] [facility] Outpatient Encounter [id number] 08/23 [facility] Social History Combined list of available smoking, tobacco, and other social history from Department of Defense and Veterans Affairs facilities. Social History Type Response Date Comment [facility] e Tobacco smoking status PAIS VA-TOBACCO FORMER USER 07/30/20[place] [facility] History of tobacco use NV-TOBACCO QUIT 5 TO < 15 YRS 07/30/2023 [facility] History of tobacco use NV-TOBACCO FORMER USER 01/15/2022 [facility] History of tobacco use NV-TOBACCO FORMER USER 12/14/2020 [facility] History of tobacco use NV-TOBACCO QUIT 1 5 YRS OR MORE 08/19/2019 [facility] History of tobacco use NV-TOBACCO DOESNT USE WI 30 MIN WAKEUP 08/27/2018 [facility] History of tobacco use FORMER TOBACCO US ER 7Y OR GREATER 12/24/2016 [facility] History of tobacco use FORMER TOBACCO US E >1Y <7Y 09/12/2015 [facility] History of tobacco use 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 NON-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 USER 09/05/2014 [facility] History of tobacco use FORMER TOBACCO US E >1Y <7Y 08/25/2014 [facility] History of tobacco use FORMER TOBACCO US ER 7Y OR GREATER 08/03/2014 [facility] History of tobacco use LIFETIME NON-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 USER 08/03/2014 [facility] History of tobacco use FORMER TOBACCO US E >1Y <7Y 08/01/2014 [facility] History of tobacco use FORMER TOBACCO US E >1Y <7Y 03/07/2013 [facility] History of tobacco use CURRENT TOBACCO USER 10/17/2009 [facility] History of tobacco use CURRENT TOBACCO USER 09/01/2006 [facility] Advance Directives List of completed, amended, or rescinded Advance Directives on record at Department of Veterans Affairs facilities. An actual copy of the Directive is not included. Date Advance Directive Provider Source 09/06/2014 CLINICAL WARNING TOYIN COTA LIS [facility] 08/05/2014 CLINICAL WARNING ROEL MERCER IS [facility] 08/01/2014 CLINICAL WARNING ALETA MAZARIEGOS IS [facility] 07/28/2007 ADVANCE DIRECTIVE CATY ADORNO IS [facility]
== END 2024-10-05 14:54 | disposition home or self-care (01) ==
LOC: ED 13:53
PROVIDERS: Emergency Provider Family Medicine; PCP Internal Medicine
DX: M79.672 Pain in left foot (principal)
CPT/HCPCS: 73630; 99283; 99284

== ENCOUNTER 2024-11-18 13:38 | Outpatient (CLI) | payer OTHER, SELFPAY ==
--- NOTE | 2024-11-18 14:00 | CRLHL7_ITS ---
For Patients: As a result of the Century Cures Act, medical imaging exams and procedure reports are released immediately into your electronic medical record. You may view this report before your referring provider. If you have questions, please contact your health care provider. INDICATION: Chronic kidney disease TECHNIQUE: CT abdomen and pelvis without contrast. COMPARISON: CT 05/31/2019 FINDINGS: Gynecomastia Lower chest: Tiny micronodule right lower lobe stable Liver: Normal in size and attenuation. No suspicious masses. Gallbladder and bile ducts: Cholelithiasis. Pancreas: Unremarkable. No mass or inflammation. Spleen: Splenic granulomas. Adrenal glands: Normal in size. No nodules. Kidneys: Low-attenuation lesions in both kidneys incompletely assessed no hydronephrosis. No renal calculi seen. GI tract: Large amount of stool within the colon diverticulosis. Vasculature: Abdominal aorta is normal in caliber. Lymph nodes: No lymphadenopathy. Peritoneum/Abdominal Wall: Unremarkable. No sign of mass or infiltration. No free air or significant free fluid. Pelvis: Irregular mildly enlarged prostate gland protruding into the bladder base. The bladder is incompletely distended with diffuse wall thickening. Normal appendix. Rectum distended with stool with wall thickening. There may be minimal perirectal stranding. Mildly prominent perirectal lymph nodes. Bones: Grade 1 anterolisthesis of L4 on L5 with advanced spondylosis. No aggressive bone lesions are seen. IMPRESSION: 1. Kidneys incompletely assessed could be related rectum distended with stool with wall thickening. There may be minimal perirectal stranding. Findings could be seen with stercoral colitis. To cysts. 2. Low-attenuation lesions in both No hydronephrosis no renal calculi. Urinary bladder demonstrates mild wall thickening, incompletely distended 3. Heterogeneous enlarged prostate gland correlate with PSA. Please note that all CT scans at this facility use dose modulation, iterative reconstruction, and/or weight-based dosing when appropriate to reduce radiation dose to as low as reasonably achievable. Dictated by Priyanka Mahoney MD @ 11/21/2024 12:25:22 PM (Electronically Signed)
== END 2024-11-18 13:39 | disposition home or self-care (01) ==
PROVIDERS: PCP Internal Medicine; Visit Provider Family Medicine
DX: N18.32 Chronic kidney disease, stage 3b (principal); N18.4 Chronic kidney disease, stage 4 (severe); N40.0 Benign prostatic hyperplasia without lower urinary tract symptoms; N28.9 Disorder of kidney and ureter, unspecified
CPT/HCPCS: 74176

== ENCOUNTER 2025-02-07 13:26 | Outpatient (CLI) | payer OTHER, SELFPAY | END 2025-02-07 13:27 | disposition home or self-care (01) | LOC: NFLDREF 02-09 02:34 | PROVIDERS: PCP Internal Medicine; Referring Provider Internal Medicine; Visit Provider Internal Medicine Nephrology | DX: N18.32 Chronic kidney disease, stage 3b (principal) | CPT/HCPCS: 80069; 82043; 82306; 82570; 82784; 83520; 83970; 84155; 84165; 84550; 86334 ==